=== PATIENT | female | born 1985 | race Caucasian/White ===

== ENCOUNTER → 2017-05-08 | Outpatient (CLI) | payer OTHER ==
[~2017-05-08] MED LIST: CLR10 PO; IBUP-103 PO; MEDR2.5T PO; NITR-5 PO
--- NOTE | 2017-05-08 15:41 | MAMMOGRAPHY REPORT ---
UNILATERAL LEFT DIGITAL DIAGNOSTIC MAMMOGRAM TOMOSYNTHESIS WITH CAD AND TARGETED LEFT ULTRASOUND: 04/23 CLINICAL HISTORY: The patient reports a history of multiple left breast infections since 2014, which start out as ingrown hairs and then turn into boils which eventually drain and then heal. The most r ecent episode started approximately 2 weeks ago, in which she noticed a new boil on her left inner br east. She does not clearly remember any drainage but she reports that it is resolving. She was just started on antibiotics. TECHNIQUE: Breast tomosynthesis in addition to standard 2D mammography was performed. Current study was also evaluated with a Computer Aided Detection (CAD) system. Left CC and MLO 2-D and tomosynthes is images were obtained. COMPARISON: No prior exams were available for comparison. BREAST COMPOSITION: There are scattered areas of fibroglandular density in the left breast. FINDINGS: There are no suspicious masses, calcifications, or areas of architectural distortion noted within the left breast mammographically. Targeted ultrasound was performed of the area of the resolving lump pointed out by the patient within the left 9:00 breast, approximately 3 cm from the nipple. On clinical exam there is some skin disco loration in this region. At the site of the palpable lump there is an ill-defined hypoechoic 1.3 x 1 .1 cm region within the skin, consistent with a resolving inflammatory/infectious process. No focal fluid collection is seen within the skin or with in the underlying breast parenchyma. No suspicious solid masses are noted within the breast tissue in this region. IMPRESSION: ACR BI-RADS CATEGORY 2: BENIGN, TARGETED ULTRASOUND ACR BI-RADS CATEGORY 2: BENIGN Ill-defined 1.3 cm hypoechoic region within the skin at the site of the resolving palpable lump/boil in the left 9:00 breast, consistent with a resolving inflammatory/infectious process. There is no fo emily fluid collection to suggest residual abscess. There is no mammographic or targeted sonographic e vidence of malignancy. Recommend clinical follow-up for left breast symptoms. The patient has been verbally notified of the results. Approximately 10% of breast cancers are not detected with mammography. A negative mammographic report should not delay biopsy if a clinically suggestive mass is present. Penny Davis M.D. /:05/08/2017 13:47:30 Mission Worker: Shira Tuttle, [facility] letter sent: Normal 1/2 BI-RADS Code: ACR BI-RADS Category 2: Benign Ultrasound BI-RADS: ACR BI-RADS Category 2: Benign
== END | disposition home or self-care (01) ==
LOC: C.MAMM 13:14
PROVIDERS: ATTEND Surgery
DX: N61.1 Abscess of the breast and nipple (principal); N63 Unspecified lump in breast

== ENCOUNTER → 2017-10-19 | Outpatient (CLI) | payer OTHER | END | disposition home or self-care (01) | LOC: C.LABSPEC 15:39 | PROVIDERS: ATTEND Physician Assistant | DX: N89.8 Other specified noninflammatory disorders of vagina (principal) ==

== ENCOUNTER 2018-03-31 09:47 | Emergency (ER) | payer OTHER ==
[~2018-03-31] VITALS: Ht 152.4 cm; Wt 161.0 kg
[2018-03-31 09:51] VITALS: TEMP 36.9; Ht 152.4 cm; Wt 161.0 kg
[2018-03-31] MEDS ORDERED: LIDOCAINE 1% BUFFERED INJ 5 ML VIAL INFIL ONE (10:30)
[2018-03-31] MEDS ORDERED: DIPHTHERIA/TETANUS/PERTUSSIS 0.5 ML SYR/VIAL IM. ONE (10:30)
--- NOTE | 2018-03-31 10:39 | EMERGENCY ROOM VISIT NOTE ---
ED Visit Note First contact with patient: 09:56 CHIEF COMPLAINT: Left fourth finger laceration 20 minutes ago HISTORY OF PRESENT ILLNESS: Patient is a 32-year-old female who was using a steak knife while preparing food and accidentally cut the left fourth finger. Injury occurred about 20 minutes ago. Bleeding has been controlled. She is right-hand dominant. She denies numbness, tingling or weakness. REVIEW OF SYSTEMS: Review of systems as per HPI. All other systems reviewed were negative. At least 6 systems reviewed. PMH: Electronic medical records are reviewed and summarized as above/below. See Problem List. She is unsure of her last tetanus vaccination. SOCIAL HISTORY: Patient lives at home. Non-smoker. PHYSICAL EXAM: Vital Signs: Reviewed Nurse's notes. There is a 1 cm long laceration on the palmar aspect of the left fourth finger over the PIP crease. The edges gape apart with traction. There is no foreign material in the wound and it looks clean. There is no bleeding. No deep structures such as tendons or nerves are seen in the base of the wound. Flexion of the finger is full and strong one isolated at the MCP, PIP and the DIP joint.. EMERGENCY DEPARTMENT COURSE: Tetanus is updated. Using sterile technique, saline and Betadine cleansing, and 1% lidocaine anesthesia, the laceration was repaired with 3, 5-0 nylon sutures. Bacitracin and a Band-Aid were applied. Wound care measures were discussed. The patient does not have any evidence for flexor tendon injury. Medication reconciliation: I attest that I have personally reviewed the patient' s current medication list. Blood pressure screening: Patient was found to have a slightly elevated blood pressure due to circumstances. I do not believe that the patient requires hypertension monitoring. Problem List Medical Problems: (1) Abscess of breast Status: Resolved (2) Bipol I, Rec Epis (Or Current) Depressed, Unspecified Status: Chronic (3) Bronchitis Status: Resolved (4) Cellulitis of breast Status: Resolved (5) Ear infection Status: Resolved (6) Morbid Obesity Status: Chronic (7) Sinusitis Status: Resolved (8) Urinary tract infection Status: Resolved (9) Urinary tract infection Status: Resolved Current/Historical Medications Scheduled Medroxyprogesterone (Provera), 5 MG PO UD Melatonin (Melatonin), 5 MG PO HS Scheduled PRN Ibuprofen Tab (Advil), 200-600 MG PO Q4H PRN for Pain or Fever Loratadine (Claritin), 10 MG PO DIRECTED PRN for ALLERGIC REACTION Allergies Coded Allergies: Estrogens (Verified Allergy, Severe, ANAPHYLAXIS WITH CONTROL PILLS , 03/31/18) Blacktail (Verified Allergy, Severe, ANAPHYLAXIS, 03/31/18) Medroxyprogesterone (Verified Allergy, Severe, ANAPHYLAXIS WITH CONTROL PILLS, 03/31/18) SOAPCLEAN (Verified Allergy, Mild, RASH (FACIAL CLEANSERS), 03/31/18) Vital Signs Date Time Temp Pulse Resp B/P (MAP) Pulse Ox O2 Delivery O2 Flow Rate FiO2 03/31/18 10:56 87 18 143/99 96 03/31/18 09:51 36.9 95 20 150/94 95 Room Air Medications Administered Medications (Trade) Dose Ordered Sig/Jamal Route Start Time Stop Time Status Last Admin Dose Admin Diphtheria/ Pertussis/Tetanus Vacc (Adacel Inj) 0.5 ml ONCE ONCE IM. 03/31/18 10:30 03/31/18 10:31 DC 03/31/18 10:52 0.5 ML Departure Information Impression Primary Impression: Laceration of finger Referrals Oliver Sheikh M.D. (PCP) Patient Instructions My [facility] Additional Instructions Keep wound clean and dry. Do not allow any crusting or dried blood to accumulate on sutures. If this occurs, use a 1:1 solution of hydrogen peroxide/ water on a Q-tip to clean the wound. Use an antibiotic ointment for 3-4 days, then let wound dry. Suture removal in 10-12 days. Return sooner for any signs of infection (increasing redness, swelling, drainage). Ice and elevate for swelling and pain. Ibuprofen 600 mg and Tylenol 1000 mg every 6 hrs for pain. Problem Qualifiers Primary Impression: Laceration of finger Encounter type: initial encounter Finger: ring finger Damage to nail status : without damage Foreign body presence: without foreign body Laterality: left Qualified Codes: S61.215A - Laceration without foreign body of left ring finger without damage to nail, initial encounter
[2018-03-31] MEDS ORDERED: MELA5TAB19 PO (10:50)
[2018-03-31 10:56] VITALS: BP 143/99; PULSE 87; O2SAT 96
== END 2018-03-31 11:04 | disposition home or self-care (01) ==
LOC: C.EDB 09:50
DX: S61.215A Laceration without foreign body of left ring finger without damage to nail, initial encounter (principal); W26.0XXA Contact with knife, initial encounter; Y93.G1 Activity, food preparation and clean up; Y99.8 Other external cause status; Z87.440 Personal history of urinary (tract) infections; Z88.8 Allergy status to other drugs, medicaments and biological substances; Z91.09 Other allergy status, other than to drugs and biological substances; Z23 Encounter for immunization

== ENCOUNTER → 2018-04-14 | Outpatient (CLI) | payer OTHER ==
[~2018-04-14] MED LIST changes: +MELA5TAB19 PO; -NITR-5 PO
[2018-04-14 12:23] LABS: BASO % 0.4 %; BASO ABS # 0.03 K/uL (0-0.2); EOS % 2.3 %; EOS ABS # 0.17 K/uL (0-0.5); HEMATOCRIT 45.2 % (37-47); HEMOGLOBIN 14.9 g/dL (12.0-16.0); LYMPH % 22.4 %; LYMPH ABS # 1.67 K/uL (1.2-3.4); MEAN CELL VOLUME 92.1 fL (80-100); MEAN CORPUSCULAR HEMOGLOBIN 30.3 pg (25-34); MEAN PLATELET VOLUME 10.5 fL (7.4-10.4); MONO % 4.7 %; MONO ABS # 0.35 K/uL (0.11-0.59); NEUT % 68.9 %; NEUT ABS # 5.15 K/uL (1.4-6.5); PLATELET COUNT 273 K/uL (130-400); RED CELL DISTRIBUTION WIDTH CV 13.5 % (11.5-14.5); RED CELL DISTRIBUTION WIDTH SD 45.1 fL (36.4-46.3); WHITE BLOOD COUNT 7.47 K/uL (4.8-10.8)
[2018-04-14 12:43] LABS: HEMOGLOBIN A1C 6.1 % (4.5-5.6)
[2018-04-14 12:48] LABS: ALBUMIN 3.6 gm/dl (3.4-5.0); ALKALINE PHOSPHATASE 110 U/L (45-117); ALT/SGPT 47 U/L (12-78); AST/SGOT 19 U/L (15-37); BLOOD UREA NITROGEN 13 mg/dl (7-18); CALCIUM 8.8 mg/dl (8.5-10.1); CARBON DIOXIDE 25 mmol/L (21-32); CHOLESTEROL 163 mg/dl (0-200); CREATININE 0.78 mg/dl (0.60-1.20); GLUCOSE 145 mg/dl (70-99); LDL CHOLESTEROL CALCULATED 86 mg/dl; SODIUM 138 mmol/L (136-145); TOTAL PROTEIN 8.1 gm/dl (6.4-8.2)
== END | disposition home or self-care (01) ==
LOC: C.LABBFT 07:40
PROVIDERS: ATTEND Nurse Practitioner
DX: N91.2 Amenorrhea, unspecified (principal); R73.01 Impaired fasting glucose; E55.9 Vitamin D deficiency, unspecified; R00.2 Palpitations

== ENCOUNTER 2021-12-29 20:56 | Inpatient (IN) ==
[2021-12-29] MEDS ORDERED: dexAMETHasone**PF** 10 MG/ML VIAL IV ONE (21:25)
[2021-12-29] MEDS ORDERED: ALBUT/IPRATROP 3MG/0.5MG NEB 3 ML VIAL INH STA (21:25)
[2021-12-29] MEDS ORDERED: SODIUM CHLORIDE 0.9% 500 ML IV STA (21:25)
--- NOTE | 2021-12-29 21:49 | Emergency Department Note ---
Impression & Plan Respiratory distress, Hypoxia, Pneumonia, COVID-19 ED Provider Note NAME: JEREMY NEIL AGE: 36 SEX: F : 1985 ARRIVES VIA: Walk-In INFORMANT: [Patient] ED PROVIDER(S): [Rodger Langford MD] CHIEF COMPLAINT: Shortness of breath HISTORY OF PRESENT ILLNESS: The patient is a 36-year-old female presents to the ER with 8 days of flulike symptoms. She has had fever, chills, nausea and vomiting, some shortness of breath, some body aches, a cough. The patient has become more short of breath as the days have gone on. The patient thinks that she was exposed to COVID-19. She has not yet been tested. She is not vaccinated for COVID-19 or influenza. The patient is a former smoker, she quit smoking in 2004. She has no asthma or COPD diagnosis. The patient's reason for presenting today was her worsening dyspnea. REVIEW OF SYSTEMS: See HPI for pertinent positives and negatives. A total of ten systems were reviewed and were otherwise negative. PMHx/PSHx: See Below SOCIAL HISTORY: See Below. PHYSICAL EXAM: GENERAL: Patient is in moderate respiratory distress. HEENT: No acute trauma, normocephalic atraumatic, mucous membranes moist, no nasal congestion, no scleral icterus. NECK: No stridor, no adenopathy, no meningismus, trachea is midline. LUNGS: Moderate respiratory distress noted, increased respiratory rate. Breath sounds are equal and somewhat diminished bilaterally. A few scattered crackles were heard. No wheezing. HEART: Mildly tachycardic, no murmurs, regular rhythm. ABDOMEN: Soft, nontender, bowel sounds positive, no hernias, no peritonitis. Obese. EXTREMITIES: No cyanosis, mild bilateral pedal edema, full range of motion of all the joints without pain or difficulty, no signs for acute trauma. NEUROLOGIC: Oriented x 3, no acute motor or sensory deficits, no focal weakness. SKIN: No rash, no jaundice, no diaphoresis. DIFFERENTIAL DIAGNOSIS: Reactive airway disease, pneumonia, COVID-19, influenza, pneumothorax, COPD, CHF, infection, cardiac ischemia, pulmonary embolism, bronchitis, musculo skeletal, gastrointestinal, as well as other pathologies. EMERGENCY DEPARTMENT COURSE/PROCEDURES: ECG: Indication was shortness of breath. The ECG shows a sinus tachycardia with a rate of 119. There is no ST elevation, no PVCs. The QTc is 464. Continuous Cardiac Monitoring: An order was placed for continuous cardiac monitoring. The monitor shows a rate of 130 with sinus tachycardia. Critical Care Note: I have personally spent 52 minutes of critical care time in the direct management of this patient. This includes bedside care, interpretation of diagnostic studies, and testing, discussion with consultants, patient, and family members, and other required patient management activities. This 52 minutes is in excess of all separately billable procedures. MEDICAL DECISION MAKING: There is a lower white blood cell count consistent with a potential viral infection. There was a normal hemoglobin and platelet count. No worrisome coagulopathy. ABG showed a low CO2 consistent with rapid breathing. PO2 was low at 57. Renal panel testing shows a lower sodium at 131. There was a slight elevation to the creatinine 1.22. No worrisome liver enzyme elevation. testing was negative. Lactic acid level was not elevated making sepsis less likely. ECG showed a sinus tachycardia without obvious ischemia. Cardiac enzyme testing x1 is not consistent with acute cardiac injury. Influenza testing is negative. Covid testing returned positive. Chest film shows a bilateral pneumonia consistent with a viral/Covid pneumonia. No pneumothorax. On exam, the patient was tachypneic, quite short of breath and hypoxic. She had some crackles on lung exam. The patient was aggressively managed. She was given nasal cannula O2 supplementation. She was given a DuoNeb, she received IV Decadron. She was given a 500 cc saline bolus. The patient has Covid pneumonia. She is hypoxic and in some respiratory distress. She is going to require a hospital stay. I did speak with the patient and case management. The on-call hospitalist was consulted. Past Med/Surg History Medical History Abscess Acid reflux Anxiety and depression Fatty liver History of breast abscess Hyperlipidemia Morbid obesity Seasonal allergies Surgical History Hx of tonsillectomy Family History Grandmother (Paternal) Breast cancer Grandmother (Maternal) Colorectal cancer Diabetes Mother Diabetes Gallbladder problem Father Diabetes Heart disease Sister Gallbladder problem Other Family history non-contributory Denies family history of Ovarian cancer Prostate cancer Coronary heart disease Social History Smoking Status: Former smoker Second Hand Exposure: Yes; Hx Alcohol Use: No Hx Substance Use: No Preferred Language: Maldivian Communication Ability: Effective Visual Impairment: No Limitations Hearing Ability: Normal Clay Hoister Required: No Beliefs That Will Affect Care: None marital status: Single Current Living Situation: Family Current Living Situation Comment: sister current occupational status: disabled Feels Safe at Home: Yes Childhood Exposure to Second-Hand Smoke: Yes caffeine: Yes Dental Care, Regularly: Yes Physical Activity Frequency: 1-2 Times per Week Seatbelt Use: always Sunscreen Use: Yes Assistive Devices: None Allergies Allergies Allergy/AdvReac Type Severity Reaction Status Date / Time doxycycline Allergy Severe hives Verified 12/29/21 21:20 Estrogens Allergy Severe ANAPHYLAXIS Verified 12/29/21 21:20 WITH CONTROL PILLS lithium Allergy Severe ANAPHYLAXIS Verified 12/29/21 21:20 sulfamethoxazole Allergy Severe red skin, Verified 12/29/21 21:20 [From Bactrim] itchy trimethoprim [From Bactrim] Allergy Severe red skin, Verified 12/29/21 21:20 itchy SOAPCLEAN Allergy Mild RASH Uncoded 12/29/21 21:20 (FACIAL CLEANSERS) Home Meds Home Medications Medication Instructions Recorded Confirmed blood-glucose meter (QuantHouseTouch ea 10/09/21 12/04/21 Ultra2 Meter) Previous Rx's Medication Instructions Recorded medroxyprogesterone 2.5 mg tablet 2.5 mg PO DAILY #90 tab 10/29/20 blood sugar diagnostic (QuantHouseTouch #300 ea 03/27/21 Ultra Blue Test Strip) lancets 30 gauge (OneTouch Delica #300 ea 03/27/21 Plus Lancet) mecobalamin (vitamin B12) 1,000 1,000 mcg PO DAILY #30 tab 04/08/21 mcg chewable tablet lisinopril 10 mg tablet 10 mg PO DAILY #90 tab 05/14/21 cetirizine 10 mg tablet 10 mg PO DAILY #90 tab 05/24/21 fluconazole 150 mg tablet 150 mg PO .weekly 180 Days #24 tab 08/26/21 (Diflucan) triamterene 37.5 1 tab PO BID #60 tab 10/03/21 mg-hydrochlorothiazide 25 mg tablet insulin degludec 200 unit/mL (3 60 unit SUBCUT DAILY #27 ml 10/15/21 mL) subcutaneous pen (Tresiba FlexTouch U-200 insulin) amlodipine 5 mg tablet (Norvasc) 5 mg PO DAILY #90 tab 10/21/21 famotidine 20 mg tablet 20 mg PO BID #180 tab 11/19/21 simvastatin 20 mg tablet 20 mg PO DAILY #90 tab 11/19/21 semaglutide 1 mg/dose (4 mg/3 mL) 1 mg SUBCUT ONCE #3 ml 12/03/21 subcutaneous pen injector pen needle, diabetic 31 gauge x #200 ea 12/11/2111/26" (1st Tier Unifine Pentips) insulin lispro-aabc 100 unit/mL 5 unit SUBCUT TID #1 box 12/16/21 subcutaneous pen (Lyumjev KwikPen U-100 Insulin) Results & Data (ED) Vital Signs Vital Signs - 24 hr 12/29/21 20:58 12/29/21 21:34 12/29/21 21:35 Temperature 37.3 C Temperature Source Temporal Artery Scan Pulse Rate 130 H Pulse Rate [Left] Pulse Rhythm [Left] Pulse Strength [Left] Respiratory Rate 30 H 24 Respiratory Effort / Characteristics Non-Labored Spontaneous Respiratory Depth Normal Respiratory Pattern Blood Pressure 136/69 Blood Pressure Mean 91 Blood Pressure Position Sitting Pulse Oximetry 92 87 L 92 Oxygen Delivery Method Room Air Room Air Nasal Cannula Oxygen Flow Rate 2 Sepsis Recent Fever Within 48 Hours Yes Sepsis New/Unexplained Change in Mental Status N/A Sepsis Action Taken by Nursing No Action Required Oxygen Flow Rate - Titration Pulse Oximetry Post Tiitration 92 12/29/21 21:43 12/29/21 22:08 12/29/21 22:45 Temperature Temperature Source Pulse Rate Pulse Rate [Left] 122 H Pulse Rhythm [Left] Regular Pulse Strength [Left] Normal Respiratory Rate 22 Respiratory Effort / Characteristics Non-Labored Spontaneous Non-Labored Spontaneous Respiratory Depth Shallow Shallow Respiratory Pattern Tachypnea Blood Pressure Blood Pressure Mean Blood Pressure Position Pulse Oximetry 88 L 95 Oxygen Delivery Method Nasal Cannula Room Air Nasal Cannula Oxygen Flow Rate 3 0 3 Sepsis Recent Fever Within 48 Hours Sepsis New/Unexplained Change in Mental Status Sepsis Action Taken by Nursing Oxygen Flow Rate - Titration 3 Pulse Oximetry Post Tiitration 94 Home Medications Current Medication List: was personally reviewed by Laboratory Data Attestation: I reviewed the patient's lab results. Result diagrams: 12/29/21 21:50 12/29/21 21:50 Lab Results 12/29/21 12/29/21 12/29/21 Range/Units 21:50 21:50 21:50 WBC 3.64 L (4.8-10.8) K/uL RBC 3.96 L (4.2-5.4) M/uL Hgb 12.3 (12.0-16.0) g/dL Hct 35.6 L (37-47) % MCV 89.9 (80-100) fL MCH 31.1 (25-34) pg MCHC 34.6 (32-36) g/dL RDW Std Deviation 50.0 H (36.4-46.3) fL RDW Coeff of Zbigniew 15.1 H (11.5-14.5) % Plt Count 163 (130-400) K/uL MPV 10.7 H (7.4-10.4) fL Immature Gran % (Auto) 1.1 % Neut % (Auto) 69.5 % Lymph % (Auto) 21.4 % [place] % (Auto) 7.4 % Eos % (Auto) 0.3 % Baso % (Auto) 0.3 % Neut # (Auto) 2.53 (1.4-6.5) K/uL Lymph # (Auto) 0.78 L (1.2-3.4) K/uL [place] # (Auto) 0.27 (0.11-0.59) K/uL Eos # (Auto) 0.01 (0-0.5) K/uL Baso # (Auto) 0.01 (0-0.2) K/uL Immature Gran # (Auto) 0.04 H (0.00-0.02) K/uL PT (9.0-12.0) Seconds INR (0.9-1.1) APTT (21.0-31.0) Seconds PTT Ratio ABG pH (7.35-7.45) ABG pCO2 (35-46) mmHg ABG pO2 (80-95) mmHg ABG HCO3 (19-24) mmol/L ABG O2 Saturation (90-95) % ABG Base Excess (-9-1.8) mEq/L Terell Test (Pos) Barometric Pressure mm/Hg Oxygen Given Sodium 131 L (136-145) mmol/L Potassium 4.3 (3.5-5.1) mmol/L Chloride 103 (98-107) mmol/L Carbon Dioxide 18 L (21-32) mmol/L Anion Gap 10 (3-11) BUN 23 (6-23) mg/dl Creatinine 1.22 H (0.6-1.2) mg/dl Est Cr Clr Drug Dosing 88.6 ml/min Est GFR ( Amer) 66.0 ml/min Est GFR (Non-Af Amer) 56.9 ml/min BUN/Creatinine Ratio 18.9 (10-20) Glucose 211 H (70-99(Fasting)) mg/dl Lactate (0.4-2.0) mmol/L Calcium 7.8 L (8.5-10.1) mg/dl Magnesium 1.8 (1.7-2.4) mg/dl Total Bilirubin 0.6 (0.2-1.0) mg/dl AST 41 H (13-39) U/L ALT 38 (7-52) U/L Alkaline Phosphatase 83 (34-104) U/L Troponin I < 0.03 (0-0.04) ng/ml Total Protein 6.3 (6.0-8.3) gm/dl Albumin 3.4 (3.4-5.0) gm/dl Globulin 2.9 (2.5-4.0) gm/dl Albumin/Globulin Ratio 1.2 (0.9-2) HCG, Qual Negative (Negative) Influ A Molecular Assay (Negative) Influ B Molecular Assay (Negative) SARS-CoV-2, RNA, NAAT (NEGATIVE) 12/29/21 12/29/21 12/29/21 Range/Units 21:50 21:50 21:51 WBC (4.8-10.8) K/uL RBC (4.2-5.4) M/uL Hgb (12.0-16.0) g/dL Hct (37-47) % MCV (80-100) fL MCH (25-34) pg MCHC (32-36) g/dL RDW Std Deviation (36.4-46.3) fL RDW Coeff of Zbigniew (11.5-14.5) % Plt Count (130-400) K/uL MPV (7.4-10.4) fL Immature Gran % (Auto) % Neut % (Auto) % Lymph % (Auto) % [place] % (Auto) % Eos % (Auto) % Baso % (Auto) % Neut # (Auto) (1.4-6.5) K/uL Lymph # (Auto) (1.2-3.4) K/uL [place] # (Auto) (0.11-0.59) K/uL Eos # (Auto) (0-0.5) K/uL Baso # (Auto) (0-0.2) K/uL Immature Gran # (Auto) (0.00-0.02) K/uL PT (9.0-12.0) Seconds INR (0.9-1.1) APTT (21.0-31.0) Seconds PTT Ratio ABG pH 7.46 H (7.35-7.45) ABG pCO2 28 L (35-46) mmHg ABG pO2 57 L (80-95) mmHg ABG HCO3 19 (19-24) mmol/L ABG O2 Saturation 91.0 (90-95) % ABG Base Excess -3.5 (-9-1.8) mEq/L Terell Test Pos (Pos) Barometric Pressure 740.6 mm/Hg Oxygen Given 3L Sodium (136-145) mmol/L Potassium (3.5-5.1) mmol/L Chloride (98-107) mmol/L Carbon Dioxide (21-32) mmol/L Anion Gap (3-11) BUN (6-23) mg/dl Creatinine (0.6-1.2) mg/dl Est Cr Clr Drug Dosing ml/min Est GFR ( Amer) ml/min Est GFR (Non-Af Amer) ml/min BUN/Creatinine Ratio (10-20) Glucose (70-99(Fasting)) mg/dl Lactate 0.8 (0.4-2.0) mmol/L Calcium (8.5-10.1) mg/dl Magnesium (1.7-2.4) mg/dl Total Bilirubin (0.2-1.0) mg/dl AST (13-39) U/L ALT (7-52) U/L Alkaline Phosphatase (34-104) U/L Troponin I (0-0.04) ng/ml Total Protein (6.0-8.3) gm/dl Albumin (3.4-5.0) gm/dl Globulin (2.5-4.0) gm/dl Albumin/Globulin Ratio (0.9-2) HCG, Qual (Negative) Influ A Molecular Assay (Negative) Influ B Molecular Assay (Negative) SARS-CoV-2, RNA, NAAT POSITIVE A* (NEGATIVE) 12/29/21 12/29/21 Range/Units 21:51 21:52 WBC (4.8-10.8) K/uL RBC (4.2-5.4) M/uL Hgb (12.0-16.0) g/dL Hct (37-47) % MCV (80-100) fL MCH (25-34) pg MCHC (32-36) g/dL RDW Std Deviation (36.4-46.3) fL RDW Coeff of Zbigniew (11.5-14.5) % Plt Count (130-400) K/uL MPV (7.4-10.4) fL Immature Gran % (Auto) % Neut % (Auto) % Lymph % (Auto) % [place] % (Auto) % Eos % (Auto) % Baso % (Auto) % Neut # (Auto) (1.4-6.5) K/uL Lymph # (Auto) (1.2-3.4) K/uL [place] # (Auto) (0.11-0.59) K/uL Eos # (Auto) (0-0.5) K/uL Baso # (Auto) (0-0.2) K/uL Immature Gran # (Auto) (0.00-0.02) K/uL PT 9.8 (9.0-12.0) Seconds INR 1.0 (0.9-1.1) APTT 31.4 H (21.0-31.0) Seconds PTT Ratio 1.2 ABG pH (7.35-7.45) ABG pCO2 (35-46) mmHg ABG pO2 (80-95) mmHg ABG HCO3 (19-24) mmol/L ABG O2 Saturation (90-95) % ABG Base Excess (-9-1.8) mEq/L Terell Test (Pos) Barometric Pressure mm/Hg Oxygen Given Sodium (136-145) mmol/L Potassium (3.5-5.1) mmol/L Chloride (98-107) mmol/L Carbon Dioxide (21-32) mmol/L Anion Gap (3-11) BUN (6-23) mg/dl Creatinine (0.6-1.2) mg/dl Est Cr Clr Drug Dosing ml/min Est GFR ( Amer) ml/min Est GFR (Non-Af Amer) ml/min BUN/Creatinine Ratio (10-20) Glucose (70-99(Fasting)) mg/dl Lactate (0.4-2.0) mmol/L Calcium (8.5-10.1) mg/dl Magnesium (1.7-2.4) mg/dl Total Bilirubin (0.2-1.0) mg/dl AST (13-39) U/L ALT (7-52) U/L Alkaline Phosphatase (34-104) U/L Troponin I (0-0.04) ng/ml Total Protein (6.0-8.3) gm/dl Albumin (3.4-5.0) gm/dl Globulin (2.5-4.0) gm/dl Albumin/Globulin Ratio (0.9-2) HCG, Qual (Negative) Influ A Molecular Assay Negative (Negative) Influ B Molecular Assay Negative (Negative) SARS-CoV-2, RNA, NAAT (NEGATIVE) Administered Medications Dexamethasone (Dexamethasone Sod Inj 4 Mg/Ml Vial) 4 mg IV 22[facility] Stop: 12/29/21 23:59 Last Admin: 12/29/21 22:35 Dose: 4 mg Documented by: [id number] Azithromycin 500 mg/ Dextrose 255 mls @ 127.5 mls/hr IV NOW STA Stop: 12/30/21 00:17 Last Admin: 12/29/21 22:36 Dose: 127.5 mls/hr Documented by: [id number] Discontinued Medications Albuterol (Albut/Ipratrop 3mg/0.5mg Neb 3 Ml Vial) 3 ml INH NOW STA Stop: 12/29/21 21:26 Last Admin: 12/29/21 21:50 Dose: 3 ml Documented by: [id number] Dexamethasone Sodium Phosphate (DexamethasonePf 10 Mg/Ml Vial) 6 mg IV NOW ONE Stop: 12/29/21 21:26 Last Admin: 12/29/21 21:55 Dose: 6 mg Documented by: [id number] Sodium Chloride (Nss) 500 mls @ 999 mls/hr IV .Q31M STA Stop: 12/29/21 21:55 Last Infusion: 12/29/21 22:49 Dose: 0 mls/hr Documented by: [id number] Admin: 12/29/21 22:11 Dose: 999 mls/hr Documented by: [id number] Ceftriaxone Sodium (Rocephin) 2,000 mg in 70 mls @ 140 mls/hr IV NOW STA Stop: 12/29/21 22:47 Last Infusion: 12/29/21 22:49 Dose: 0 mls/hr Documented by: [id number] Admin: 12/29/21 22:35 Dose: 140 mls/hr Documented by: [id number] Imaging Data Radiologist's Impression: Chest X-Ray 12/29/21 21:25 XR chest 1V portable CLINICAL HISTORY: Dyspnea. Cough and shortness of breath COMPARISON STUDY: No previous studies for comparison. TECHNIQUE: 1 view of the chest FINDINGS: Single frontal view of the chest demonstrates the cardiomediastinal silhouette to be within normal limits. Patchy interstitial and alveolar opacities bilaterally characteristic of a viral type pneumonitis and probable Covid 19 pneumonia. Findings There is no evidence for pleural effusion. There is no evidence for vascular congestion. There is no acute osseous pathology. IMPRESSION: Patchy interstitial and alveolar opacities bilaterally characteristic of a viral type pneumonitis and probable Covid 19 pneumonia. ACT 112: Negative or not required by law. Electronically signed by: hCandana Rivas M.D. 12/29/2021 10:15 PM Discharge Plan Visit Data Chief Complaint: Shortness of Breath/Dyspnea Stated Complaint: FEVER, SOB, CHILLS, ABDOM PAIN, COVID EXP ED Provider: Rodger Langford Discharge Problem: Respiratory distress, Hypoxia, Pneumonia, COVID-19 Patient Disposition: Admitted As Inpatient Condition: Serious Forms Stand Alone Forms: [employer] Prescriptions Prescriptions: No Action (DME) OneTouch Ultra Blue Test Strip Strip See Rx Instructions .ROUTE .MEDSUPPLY Qty: 300 RF: 3 (DME) lancets [OneTouch Delica Plus Lancet] 30 gauge misc See Rx Instructions .ROUTE .MEDSUPPLY Qty: 300 RF: 3 mecobalamin (vitamin B12) 1,000 mcg tablet,chewable 1,000 mcg PO DAILY Qty: 30 RF: 0 lisinopril 10 mg tablet 10 mg PO DAILY Qty: 90 RF: 3 cetirizine 10 mg tablet 10 mg PO DAILY Qty: 90 RF: 3 fluconazole [Diflucan] 150 mg tablet 150 mg PO .weekly 180 Days Qty: 24 RF: 0 Tresiba FlexTouch U-200 200 unit/mL (3 mL) insulin pen 60 unit subcut DAILY Qty: 27 RF: 3 amlodipine [Norvasc] 5 mg tablet 5 mg PO DAILY Qty: 90 RF: 3 simvastatin 20 mg tablet 20 mg PO DAILY Qty: 90 RF: 3 famotidine 20 mg tablet 20 mg PO BID Qty: 180 RF: 3 semaglutide 1 mg/dose (4 mg/3 mL) pen injector 1 mg subcut ONCE Qty: 3 RF: 5 (DME) pen needle, diabetic [1st Tier Unifine Pentips] 31 gauge x 1/4" needle See Rx Instructions .ROUTE .MEDSUPPLY Qty: 200 RF: 3 medroxyprogesterone 2.5 mg tablet 2.5 mg PO DAILY Qty: 90 RF: 5 Lyumjev KwikPen U-100 Insulin 100 unit/mL insulin pen 5 unit subcut TID Qty: 1 RF: 3 triamterene-hydrochlorothiazid 37.5-25 mg tablet 1 tab PO BID Qty: 60 RF: 5 (DME) blood-glucose meter [OneTouch Ultra2 Meter] Kit See Rx Instructions .ROUTE .MEDSUPPLY RF: 0 Referrals Referrals: Oliver Sheikh MD [Primary Care Provider] -
[2021-12-29 22:01] LABS: Basophils # (auto) 0.01 K/uL (0-0.2); Basophils % (auto) 0.3 %; Eosinophils # (auto) 0.01 K/uL (0-0.5); Eosinophils % (auto) 0.3 %; Hematocrit (blood only) 35.6 % (37-47); Hemoglobin 12.3 g/dL (12.0-16.0); Immature Granulocytes # (auto) 0.04 K/uL (0.00-0.02); Immature Granulocytes % (auto) 1.1 %; Lymphocytes # (auto) 0.78 K/uL (1.2-3.4); Lymphocytes % (auto) 21.4 %; Mean Corpuscular Hemoglobin 31.1 pg (25-34); Mean Corpuscular Hgb Conc 34.6 g/dL (32-36); Mean Corpuscular Volume 89.9 fL (80-100); Mean Platelet Volume 10.7 fL (7.4-10.4); Monocytes # (auto) 0.27 K/uL (0.11-0.59); Monocytes % (auto) 7.4 %; Neutrophils # (auto) 2.53 K/uL (1.4-6.5); Neutrophils % (auto) 69.5 %; Platelet Count 163 K/uL (130-400); RDW Coefficient of Variation 15.1 % (11.5-14.5); Red Blood Count 3.96 M/uL (4.2-5.4); White Blood Count 3.64 K/uL (4.8-10.8)
[2021-12-29 22:03] LABS: Base Excess ABG -3.5 mEq/L (-9-1.8); HCO3 ABG 19 mmol/L (19-24); PCO2 ABG 28 mmHg (35-46); PO2 ABG 57 mmHg (80-95); pH ABG 7.46 (7.35-7.45)
[2021-12-29 22:05] LABS: Allen Test Pos (Pos)
[2021-12-29] MEDS ORDERED: dexAMETHasone 4 MG in SYRINGE 0 ML IV ONE (22:16)
--- NOTE | 2021-12-29 22:16 | XRay Report ---
XR chest 1V portable CLINICAL HISTORY: Dyspnea. Cough and shortness of breath COMPARISON STUDY: No previous studies for comparison. TECHNIQUE: 1 view of the chest FINDINGS: Single frontal view of the chest demonstrates the cardiomediastinal silhouette to be within normal li mits. Patchy interstitial and alveolar opacities bilaterally characteristic of a viral type pneumonit is and probable Covid 19 pneumonia. Findings There is no evidence for pleural effusion. There is no e vidence for vascular congestion. There is no acute osseous pathology. IMPRESSION: Patchy interstitial and alveolar opacities bilaterally characteristic of a viral type pne umonitis and probable Covid 19 pneumonia. ACT 112: Negative or not required by law. Electronically signed by: Chandana Rivas M.D. 12/29/2021 10:15 PM
[2021-12-29 22:18] LABS: Influenza A virus by PCR Negative (Negative); Influenza B virus by PCR Negative (Negative)
[2021-12-29] MEDS ORDERED: AZITHROMYCIN 500 MG in DEXTROSE 5% 250 ML IV STA (22:18)
[2021-12-29] MEDS ORDERED: cefTRIAXone SODIUM 2,000 MG/70 ML BAG IV STA (22:18)
[2021-12-29] MEDS ORDERED: DEXAMETHASONE SOD INJ 4 MG/ML VIAL IV SCH (22:20)
[2021-12-29 22:22] LABS: Alanine Aminotransferase 38 U/L (7-52); Albumin Globulin Ratio 1.2 (0.9-2); Albumin Level 3.4 gm/dl (3.4-5.0); Alkaline Phosphatase 83 U/L (34-104); Anion Gap 10 (3-11); Aspartate Aminotransferase 41 U/L (13-39); BUN Creatinine Ratio 18.9 (10-20); Bilirubin,Total 0.6 mg/dl (0.2-1.0); Blood Urea Nitrogen 23 mg/dl (6-23); Calcium 7.8 mg/dl (8.5-10.1); Carbon Dioxide 18 mmol/L (21-32); Chloride 103 mmol/L (98-107); Creatinine Clr Calc Pharmacy 88.6 ml/min; Est GFR (Non-African American) 56.9 ml/min; Globulin 2.9 gm/dl (2.5-4.0); Glucose 211 mg/dl (70-99(Fasting)); Magnesium 1.8 mg/dl (1.7-2.4); Potassium 4.3 mmol/L (3.5-5.1); Sodium 131 mmol/L (136-145); Total Protein 6.3 gm/dl (6.0-8.3)
[2021-12-29 22:25] LABS: Troponin I < 0.03 ng/ml (0-0.04)
[2021-12-29 22:27] LABS: Pregnancy Test, Serum Negative (Negative)
[2021-12-29] MEDS ORDERED: REMDESIVIR 200 MG in SODIUM CHLORIDE 0.9% 210 ML IV STA (22:37)
--- NOTE | 2021-12-29 22:40 | History & Physical Report ---
Date of Service December 29, 2021 Assessment & Plan (1) Pneumonia due to COVID-19 virus: Plan: Pneumonia due to COVID-19 virus/acute respiratory failure with hypoxia- Give Decadron 10 mg IV this evening, and 6 mg IV every morning Remdesivir IV per protocol Ceftriaxone 2 g IV daily Azithromycin 500 mg IV daily Duonebs every 4 hours while awake and every 2 hours when necessary. Vitamin D 5000 international units p.o. every morning Zinc sulfate turn 200 mg p.o. every morning Guaifenesin extended release 1200 mg p.o. twice daily Nasal cannula oxygen, titrate to keep pulse ox 92-94% (2) Acute respiratory failure with hypoxia: Plan: See above (3) Hypertension: Plan: Hold amlodipine, triamterene/HCTZ and lisinopril. (4) Diabetes mellitus: Plan: Continue insulin degludec [address] on Accu-Cheks before meals and at bedtime NovoLog coverage per scale Check hemoglobin A1c Expect glucose to become more elevated while being on Decadron (5) Hyperlipidemia: Plan: Continue simvastatin (6) Acid reflux: Plan: Continue famotidine History of Present Illness Chief Complaint: The patient presents to the emergency department with 8 days of cough, shortness of breath, generalized fatigue, intermittent nausea and vomiting and generalized body aches, after probable exposure to COVID-19. The patient herself is unvaccinated to COVID-19 or influenza Primary Care Provider: Oliver Sheikh MD The patient is a 36-year-old female with a past medical history including diabetes mellitus, hypertension, GERD, hyperlipidemia, and morbid obesity. She presents with 8 days of symptoms noted above. Laboratory evaluation emergency department included a positive test for COVID-19, and negative test for influenza. Pulse ox was 88% on room air. Chest x-ray showed moderate to severe multifocal pneumonia. Allergies Allergy/AdvReac Type Severity Reaction Status Date / Time doxycycline Allergy Severe hives Verified 12/29/21 21:20 Estrogens Allergy Severe ANAPHYLAXIS Verified 12/29/21 21:20 WITH CONTROL PILLS lithium Allergy Severe ANAPHYLAXIS Verified 12/29/21 21:20 sulfamethoxazole Allergy Severe red skin, Verified 12/29/21 21:20 [From Bactrim] itchy trimethoprim [From Bactrim] Allergy Severe red skin, Verified 02/06/22 21:20 itchy SOAPCLEAN Allergy Mild RASH Uncoded 12/29/21 21:20 (FACIAL CLEANSERS) Home Medications Medication Instructions Recorded Confirmed Type medroxyprogesterone 2.5 mg tablet 2.5 mg PO DAILY #90 tab 10/29/20 12/29/21 Rx blood sugar [facility] 03/27/21 12/04/21 Rx Ultra Blue Test Strip) lancets 30 gauge (OneTouch Delica #300 ea 03/27/21 12/04/21 Rx Plus Lancet) mecobalamin (vitamin B12) 1,000 1,000 mcg PO DAILY #30 tab 04/08/21 12/29/21 Rx mcg chewable tablet lisinopril 10 mg tablet 10 mg PO DAILY #90 tab 05/14/21 12/29/21 Rx cetirizine 10 mg tablet 10 mg PO DAILY #90 tab 05/24/21 12/29/21 Rx fluconazole 150 mg tablet 150 mg PO .weekly 180 Days #24 tab 08/26/21 12/29/21 Rx (Diflucan) triamterene 37.5 1 tab PO BID #60 tab 10/03/21 12/29/21 Rx mg-hydrochlorothiazide 25 mg tablet blood-glucose meter (Oneuch ea 10/09/21 12/04/21 History Ultra2 Meter) insulin degludec 200 unit/mL (3 60 unit SUBCUT DAILY #27 ml 10/15/21 12/29/21 Rx mL) subcutaneous pen (Tresiba FlexTouch U-200 insulin) amlodipine 5 mg tablet (Norvasc) 5 mg PO DAILY #90 tab 10/21/21 12/29/21 Rx famotidine 20 mg tablet 20 mg PO BID #180 tab 11/19/21 12/29/21 Rx simvastatin 20 mg tablet 20 mg PO DAILY #90 tab 11/19/21 12/29/21 Rx semaglutide 1 mg/dose (4 mg/3 mL) 1 mg SUBCUT ONCE #3 ml 12/03/21 12/29/21 Rx subcutaneous pen injector pen needle, diabetic 31 gauge x #200 ea 12/11/21 Rx 1/4" (1st Tier Unifine Pentips) insulin lispro-aabc 100 unit/mL 5 unit SUBCUT TID #1 box 12/16/21 12/29/21 Rx subcutaneous pen (Lyumjev KwikPen U-100 Insulin) Past Med/Surg History Medical History (Updated 12/30/21 @ 02:04 by Blair Louis MD) Abscess Acid reflux Anxiety and depression Fatty liver History of breast abscess Hyperlipidemia Morbid obesity Seasonal allergies Surgical History (Updated 12/30/21 @ 00:16 by Glenna Marsh RN) History of adenoidectomy Hx of tonsillectomy Family History Grandmother (Paternal) Breast cancer Grandmother (Maternal) Colorectal cancer Diabetes Mother Diabetes Gallbladder problem Father Diabetes Heart disease Sister Gallbladder problem Other Family history non-contributory Denies family history of Ovarian cancer Prostate cancer Coronary heart disease Social History Smoking Status: Former smoker Second Hand Exposure: No; Do You Dip or Chew Tobacco: No; Tobacco Cessation Education Requested by Patient: No Hx Alcohol Use: No Hx Substance Use: No Preferred Language: Georgian Communication Ability: Effective Visual Impairment: No Limitations Hearing Ability: Normal 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 Beliefs That Will Affect Care: None marital status: Single Current Living Situation: Family Current Living Situation Comment: sister current occupational status: disabled Feels Safe at Home: Yes Safety Concerns: Feels Safe At This Time Childhood Exposure to Second-Hand Smoke: Yes caffeine: Yes Dental Care, Regularly: Yes Physical Activity Frequency: 1-2 Times per Week Seatbelt Use: always Sunscreen Use: Yes Assistive Devices: Oxygen - Continuous Review of Systems Review of Systems: The patient denies chest pain, palpitations, lower extremity swelling, sore throat, fevers, chills, sweats, diarrhea , constipation, abdominal pain, pelvic pain, blood in urine or stool, dysuria, urinary frequency or urgency, lightheadedness, dizziness, headache, memory loss, loss of consciousness, rash, abnormal bruising or bleeding, imbalance, focal weakness, numbness or tingling in arms or legs, back or neck pain, or night sweats. The review of systems is otherwise negative other than for that already noted above, and at least 10 systems have been reviewed. Physical Exam Physical Exam: The patient is awake, alert and oriented 3, well developed and well nourished, normocephalic and atraumatic, lying in bed and in moderate distress secondary to shortness of breath HEENT--PERRL, EOMI, mucous membranes and oropharynx normal Neck--supple. No JVD. No bruits. Thyroid normal, trachea midline, no adenopathy. Heart--normal S1 and S2. No murmurs, rubs or gallops. Lungs--coarse breath sounds bilaterally. Moderate respiratory distress, no accessory muscle use. Abdomen--normal bowel sounds and soft. Nontender. Nondistended. Morbidly obese Extremities--no cyanosis or clubbing. No edema. Dermatologic--normal skin turgor, normal color, no abnormal lymph nodes, no rash. Neurologic--cranial nerves II through XII grossly intact. Rheumatologic--normal range of motion. Psychiatric--normal affect. Results & Data Results & Data ([facility]) Vital Signs (Past 12 Hours) Vital Signs Temp Pulse Resp BP Pulse Ox 12/29/21 22:08 88 L 12/29/21 21:35 92 12/29/21 21:34 24 87 L 12/29/21 20:58 37.3 C 130 H 30 H 136/69 92 Laboratory Results Laboratory Results WBC 3.64 K/uL (4.8-10.8) L 12/29/21 21:50 RBC 3.96 M/uL (4.2-5.4) L 12/29/21 21:50 Hgb 12.3 g/dL (12.0-16.0) 12/29/21 21:50 Hct 35.6 % (37-47) L 12/29/21 21:50 MCV 89.9 fL (80-100) 12/29/21 21:50 MCH 31.1 pg (25-34) 12/29/21 21:50 MCHC 34.6 g/dL (32-36) 12/29/21 21:50 RDW Std Deviation 50.0 fL (36.4-46.3) H 12/29/21 21:50 RDW Coeff of Zbigniew 15.1 % (11.5-14.5) H 12/29/21 21:50 Plt Count 163 K/uL (130-400) 12/29/21 21:50 MPV 10.7 fL (7.4-10.4) H 12/29/21 21:50 Immature Gran % (Auto) 1.1 % 12/29/21 21:50 Neut % (Auto) 69.5 % 12/29/21 21:50 Lymph % (Auto) 21.4 % 12/29/21 21:50 [place] % (Auto) 7.4 % 12/29/21 21:50 Eos % (Auto) 0.3 % 12/29/21 21:50 Baso % (Auto) 0.3 % 12/29/21 21:50 Neut # (Auto) 2.53 K/uL (1.4-6.5) 12/29/21 21:50 Lymph # (Auto) 0.78 K/uL (1.2-3.4) L 12/29/21 21:50 [place] # (Auto) 0.27 K/uL (0.11-0.59) 12/29/21 21:50 Eos # (Auto) 0.01 K/uL (0-0.5) 12/29/21 21:50 Baso # (Auto) 0.01 K/uL (0-0.2) 12/29/21 21:50 Immature Gran # (Auto) 0.04 K/uL (0.00-0.02) H 12/29/21 21:50 PT 9.8 Seconds (9.0-12.0) 12/29/21 21:52 INR 1.0 (0.9-1.1) 12/29/21 21:52 APTT 31.4 Seconds (21.0-31.0) H 12/29/21 21:52 PTT Ratio 1.2 12/29/21 21:52 ABG pH 7.46 (7.35-7.45) H 12/29/21 21:50 ABG pCO2 28 mmHg (35-46) L 12/29/21 21:50 ABG pO2 57 mmHg (80-95) L 12/29/21 21:50 ABG HCO3 19 mmol/L (19-24) 12/29/21 21:50 ABG O2 Saturation 91.0 % (90-95) 12/29/21 21:50 ABG Base Excess -3.5 mEq/L (-9-1.8) 12/29/21 21:50 Terell Test Pos (Pos) 12/29/21 21:50 Barometric Pressure 740.6 mm/Hg 12/29/21 21:50 Oxygen Given 3L 12/29/21 21:50 Sodium 131 mmol/L (136-145) L 12/29/21 21:50 Potassium 4.3 mmol/L (3.5-5.1) 12/29/21 21:50 Chloride 103 mmol/L (98-107) 12/29/21 21:50 Carbon Dioxide 18 mmol/L (21-32) L 12/29/21 21:50 Anion Gap 10 (3-11) 12/29/21 21:50 BUN 23 mg/dl (6-23) 12/29/21 21:50 Creatinine 1.22 mg/dl (0.6-1.2) H 12/29/21 21:50 Est Cr Clr Drug Dosing 88.6 ml/min 12/29/21 21:50 Est GFR ( Amer) 66.0 ml/min 12/29/21 21:50 Est GFR (Non-Af Amer) 56.9 ml/min 12/29/21 21:50 BUN/Creatinine Ratio 18.9 (10-20) 12/29/21 21:50 Glucose 211 mg/dl (70-99(Fasting)) H 12/29/21 21:50 POC Glucose 223 mg/dl (70-99) H 12/30/21 01:20 Lactate 0.8 mmol/L (0.4-2.0) 12/29/21 21:50 Calcium 7.8 mg/dl (8.5-10.1) L 12/29/21 21:50 Magnesium 1.8 mg/dl (1.7-2.4) 12/29/21 21:50 Total Bilirubin 0.6 mg/dl (0.2-1.0) 12/29/21 21:50 AST 41 U/L (13-39) H 12/29/21 21:50 ALT 38 U/L (7-52) 12/29/21 21:50 Alkaline Phosphatase 83 U/L (34-104) 12/29/21 21:50 Troponin I < 0.03 ng/ml (0-0.04) 12/29/21 21:50 Total Protein 6.3 gm/dl (6.0-8.3) 02/06/22 21:50 Albumin 3.4 gm/dl (3.4-5.0) 12/29/21 21:50 Globulin 2.9 gm/dl (2.5-4.0) 12/29/21 21:50 Albumin/Globulin Ratio 1.2 (0.9-2) 12/29/21 21:50 HCG, Qual Negative (Negative) 12/29/21 21:50 Urine Color Yellow 12/29/21 00:47 Urine Appearance Clear (Clear) 12/29/21 00:47 Urine pH 5.5 (4.5-7.5) 12/29/21 00:47 Ur Specific Vance 1.018 (1.000-1.030) 12/29/21 00:47 Urine Protein Trace (Negative) H 12/29/21 00:47 Urine Glucose (UA) Negative (Negative) 12/29/21 00:47 Urine Ketones Negative (Negative) 12/29/21 00:47 Urine Blood Negative (Negative) 12/29/21 00:47 Urine Nitrite Negative (Negative) 12/29/21 00:47 Urine Bilirubin Negative (Negative) 12/29/21 00:47 Urine Urobilinogen Negative (Negative) 12/29/21 00:47 Ur Leukocyte Esterase Negative (Negative) 12/29/21 00:47 Urine WBC (Auto) 1-5 /hpf (0-5) 12/29/21 00:47 Urine RBC (Auto) 5-10 /hpf (0-4) H 12/29/21 00:47 U Hyaline Cast (Auto) 1-5 /lpf (0-5) 12/29/21 00:47 U Epithel Cells (Auto) >30 /lpf (0-5) H 12/29/21 00:47 Urine Bacteria (Auto) Negative (Negative) 12/29/21 00:47 Influ A Molecular Assay Negative (Negative) 12/29/21 21:51 Influ B Molecular Assay Negative (Negative) 12/29/21 21:51 SARS-CoV-2, RNA, NAAT POSITIVE (NEGATIVE) A* 12/29/21 21:51 Impressions Chest X-Ray 12/29/21 21:25 XR chest 1V portable CLINICAL HISTORY: Dyspnea. Cough and shortness of breath COMPARISON STUDY: No previous studies for comparison. TECHNIQUE: 1 view of the chest FINDINGS: Single frontal view of the chest demonstrates the cardiomediastinal silhouette to be within normal limits. Patchy interstitial and alveolar opacities bilaterally characteristic of a viral type pneumonitis and probable Covid 19 pneumonia. Findings There is no evidence for pleural effusion. There is no evidence for vascular congestion. There is no acute osseous pathology. IMPRESSION: Patchy interstitial and alveolar opacities bilaterally characteristic of a viral type pneumonitis and probable Covid 19 pneumonia. ACT 112: Negative or not required by law. Electronically signed by: Chandana Rivas M.D. 12/29/2021 10:15 PM Code Status & VTE Plan Code Status Full code VTE Prophylaxis Plan VTE Prophylaxis will be ordered: Yes PG Care Time/CCT Total # of Minutes Spent Total Time Spent with Patient: Total time spent is greater than 50% in coordination of care (as documented) at patient's floor/unit and/or counseling patient: Coding Level of Care Code 64090 Initial Inpt Care Lvl 3 Diagnoses Pneumonia due to COVID-19 virus U07.1; J12.82 Acute respiratory failure with hypoxia J96.01 Hypertension I10 Diabetes mellitus E11.9 Hyperlipidemia E78.5 Acid reflux K21.9
[2021-12-29 22:52] LABS: Partial Thromboplastin Ratio 1.2; Partial Thromboplastin Time 31.4 Seconds (21.0-31.0); Prothrombin Time 9.8 Seconds (9.0-12.0)
[2021-12-29] MEDS ORDERED: DEXTROSE 50% 50 ML SYRINGE IV PRN (23:43)
[2021-12-29] MEDS ORDERED: GLUCOSE 10 TABS/TUBE PO PRN (23:43)
[2021-12-29] MEDS ORDERED: GLUCAGON FOR INJ 1 MG VIAL SQ PRN (23:43)
[2021-12-29] MEDS ORDERED: CARBOHYDRATES FOR HYPOGLYCEMIA PO PRN (23:43)
[2021-12-29] MEDS ORDERED: ACETAMINOPHEN 325 MG TAB PO PRN (23:43)
[2021-12-29] MEDS ORDERED: ONDANSETRON INJ 2 MG/ML 2 ML VIAL IV PRN (23:43)
[2021-12-29] MEDS ORDERED: GLUCOSE 40% GEL 15 GM TUBE PO PRN (23:43)
[2021-12-30] MEDS: FAMOTIDINE 20 MG TAB PO SCH ×3 (01:19→21:24)
[2021-12-30 02:01] LABS: Appearance Urine Clear (Clear); Bacteria Urine Automated Negative (Negative); Bilirubin Urine Negative (Negative); Blood Urine Negative (Negative); Color Urine Yellow; Epithelial Cell Urine Auto >30 /lpf (0-5); Glucose Urine UA Negative (Negative); Ketones Urine Negative (Negative); Leukocyte Esterase Urine Negative (Negative); Nitrite Urine Negative (Negative); Protein Urine Trace (Negative); Specific Gravity Urine 1.018 (1.000-1.030); Urobilinogen Urine Negative (Negative); pH Urine 5.5 (4.5-7.5)
[2021-12-30] MEDS ORDERED: SODIUM CHLORIDE 0.9% 1000ML 500 ML IV ONE (03:05)
--- NOTE | 2021-12-30 06:30 | Electrocardiogram Report ---
Test Reason : Blood Pressure : / mmHG Vent. Rate : 119 BPM Atrial Rate : 119 BPM P-R Int : 134 ms QRS Dur : 084 ms QT Int : 330 ms P-R-T Axes : 027 -05 038 degrees QTc Int : 464 ms Sinus tachycardia Low voltage QRS Poor R wave progression, consider anterior CA vs. lead placement vs. LVH Abnormal ECG When compared with ECG of 17-JUL-2010 14:34, Premature supraventricular complexes are no longer Present Confirmed by Marcial Riley ([id number]) on 12/30/2021 6:29:49 AM Referred By: REFERRED SELF Confirmed By:Marcial Riley
[2021-12-30] MEDS ORDERED: ALBUT/IPRATROP 3MG/0.5MG NEB 3 ML VIAL NEB SCH (07:00)
[2021-12-30 07:33] LABS: Hematocrit (blood only) 34.3 % (37-47); Hemoglobin 11.6 g/dL (12.0-16.0); Immature Granulocytes # (auto) 0.03 K/uL (0.00-0.02); Immature Granulocytes % (auto) 1.5 %; Lymphocytes # (auto) 0.46 K/uL (1.2-3.4); Mean Corpuscular Hemoglobin 30.4 pg (25-34); Mean Corpuscular Hgb Conc 33.8 g/dL (32-36); Mean Platelet Volume 10.8 fL (7.4-10.4); Monocytes # (auto) 0.07 K/uL (0.11-0.59); Monocytes % (auto) 3.5 %; Neutrophils # (auto) 1.44 K/uL (1.4-6.5); Platelet Count 170 K/uL (130-400); RDW Standard Deviation 49.4 fL (36.4-46.3); Red Blood Count 3.81 M/uL (4.2-5.4)
[2021-12-30 07:53] LABS: Troponin I < 0.03 ng/ml (0-0.04)
[2021-12-30 08:06] LABS: Estimated Average Glucose 140 mg/dl; Hemoglobin A1C 6.5 % (4.5-5.6)
[2021-12-30 08:07] LABS: Alanine Aminotransferase 37 U/L (7-52); Albumin Globulin Ratio 1.1 (0.9-2); Albumin Level 3.3 gm/dl (3.4-5.0); Alkaline Phosphatase 78 U/L (34-104); Anion Gap 9 (3-11); Aspartate Aminotransferase 39 U/L (13-39); BUN Creatinine Ratio 19.4 (10-20); Bilirubin,Total 0.4 mg/dl (0.2-1.0); Blood Urea Nitrogen 20 mg/dl (6-23); Calcium 7.7 mg/dl (8.5-10.1); Carbon Dioxide 20 mmol/L (21-32); Chloride 104 mmol/L (98-107); Creatinine Clr Calc Pharmacy 109.2 ml/min; Est GFR (Non-African American) 69.9 ml/min; Glucose 269 mg/dl (70-99(Fasting)); Potassium 4.3 mmol/L (3.5-5.1); Sodium 133 mmol/L (136-145); Total Protein 6.3 gm/dl (6.0-8.3)
[2021-12-30] MEDS ORDERED: INSULIN GLARGINE SOLOSTAR 100 UNITS/ML 3 ML PEN SC SCH (09:00)
[2021-12-30] MEDS: CETIRIZINE HCL 10 MG TABLET PO SCH (09:08)
[2021-12-30] MEDS: CHOLECALCIFEROL 5,000 UNITS 125 MCG TAB PO SCH (09:09)
[2021-12-30] MEDS: CYANOCOBALAMIN (B-12) 500 MCG TABLET PO SCH (09:09)
[2021-12-30] MEDS: dexAMETHasone 6 MG in SYRINGE 0 ML IV SCH (09:09)
[2021-12-30] MEDS: ZINC SULFATE 220 MG CAPSULE PO SCH (09:10)
[2021-12-30] MEDS: SIMVASTATIN 20 MG TAB PO SCH (09:10)
[2021-12-30] MEDS: guaiFENesin 600 MG TABCR PO SCH ×2 (09:10→21:24)
[2021-12-30] MEDS: INSULIN ASPART PER UNIT SC SCH ×4 (09:13→20:38)
[2021-12-30] MEDS ORDERED: NYSTATIN POWDER 15GM BTL EXT PRN (14:09)
--- NOTE | 2021-12-30 14:13 | Hospitalist Progress Note ---
Date of Service December 30, 2021 Assessment & Plan (1) Pneumonia due to COVID-19 virus: Plan: Pneumonia due to COVID-19 virus/acute respiratory failure with hypoxia- first symptoms 12/26/21 covid test + 12/29/21 oxygen at admission quickly progressed to vapotherm 30 L 60% unvaccinated former smoker, morbidly obese with BMI 69 and insulin requiring diabetic Give Decadron 10 mg IV this evening, and 6 mg IV every morning Remdesivir IV per protocol will check crp to see if qualifies for baricitinib Azithromycin 500 mg IV daily Duonebs every 4 hours while awake and every 2 hours when necessary. Vitamin D 5000 international units p.o. every morning Zinc sulfate turn 200 mg p.o. every morning Guaifenesin extended release 1200 mg p.o. twice daily Nasal cannula oxygen, titrate to keep pulse ox 92-94% (2) Acute respiratory failure with hypoxia: Plan: See above (3) Hypertension: Plan: Hold amlodipine, triamterene/HCTZ and lisinopril. (4) Diabetes mellitus: Plan: insulin glargine 30 u bid, ssi plus nph to help cover decadron induced hyperglycemia hemoglobin A1c 6.5 implying good control Expect glucose to become more elevated while being on Decadron (5) Hyperlipidemia: Plan: Continue simvastatin (6) Acid reflux: Plan: Continue famotidine Admission and Anticipated Discharge Date Admission Date: December 29, 2021 Subjective pt was seen in room she is in moderate but stable respiratory distress on Vapotherm oxygen, does have some intertrigo and uncontrolled glucose from steroids Review of Systems Review of Systems: Moderate distress and fatigue no headache, no visual changes no speech or swallowing issues no chest pain, pressure or palpitations Continue shortness of breath, nonproductive cough or wheezes no abdominal pain, nausea or vomiting, no diarrhea no dysuria, hematuria or frequency no focal joint pain or swelling no back pain, CVA tenderness or radicular pain no bruising, bleeding or rashes no focal signs of weakness or numbness or altered sensation no complaints of anxiety or depression.. Physical Exam Physical Exam: The patient appeared mild to moderate respiratory distress Vital signs as documented. Head exam is normocephalic atraumatic Neck is without JVD, thyromegaly, or carotid bruits. Lungs are coarse bilaterally in all lung benavides tachypnea Cardiac exam, Rhythm is regular.. No murmurs, rubs or gallops. Abdominal exam reveals normal bowel sounds, soft non tender, no masses Extremities are nonedematous and both pedal pulses are present Neurologic exam is alert and oriented, no focal loss of strength or sensation Skin is with intertrigo Psychologically is without concerns for anxiety or depression. Results & Data Results & Data ([facility]) Vital Signs (Past 12 Hours) Vital Signs Temp Pulse Pulse Resp BP Pulse Ox 12/30/21 12:56 97 H 12/30/21 12:22 88 18 92 12/30/21 11:15 98.6 F 92 H 18 112/70 93 12/30/21 07:33 87 18 94 12/30/21 07:32 87 18 94 12/30/21 07:21 99.0 F 87 24 100/53 L 97 12/30/21 06:48 24 92 12/30/21 05:23 92 H 21 97 12/30/21 02:50 99.0 F 93 H 20 86/46 L 91 PG Care Time/CCT Total # of Minutes Spent Total Time Spent with Patient: Total time spent is greater than 50% in coordination of care (as documented) at patient's floor/unit and/or counseling patient: Coding Level of Care Code 77714 Subseq Hosp Care Lvl 3 Diagnoses Pneumonia due to COVID-19 virus U07.1; J12.82 Acute respiratory failure with hypoxia J96.01 Hypertension I10 Diabetes mellitus E11.9 Hyperlipidemia E78.5 Acid reflux K21.9
[2021-12-30] MEDS ORDERED: INSULIN HUMAN NPH SC ONE (14:30)
[2021-12-30] MEDS: TRIAMTERENE/HCTZ 37.5/25MG TAB PO SCH (19:48)
[2021-12-30] MEDS: REMDESIVIR 100 MG in SODIUM CHLORIDE 0.9% 230 ML IV SCH (19:59)
[2021-12-30] MEDS ORDERED: cefTRIAXone SODIUM 2,000 MG in DEXTROSE 5% 50 ML IV SCH (21:00)
[2021-12-30] MEDS: AZITHROMYCIN 500 MG in DEXTROSE 5% 250 ML IV SCH (21:26)
--- NOTE | 2021-12-31 08:07 | Hospitalist Progress Note ---
Date of Service December 31, 2021 Assessment & Plan (1) Pneumonia due to COVID-19 virus: Plan: Pneumonia due to COVID-19 virus/acute respiratory failure with hypoxia- first symptoms 12/26/21 covid test + 12/29/21 oxygen at admission quickly progressed to vapotherm 30 L 60% unvaccinated former smoker, morbidly obese with BMI 69 and insulin requiring diabetic Given Decadron 10 mg IV in ER, and 6 mg IV daily starting 12/30/21 Remdesivir IV per protocol crp 5.67 does not qualify for baricitinib Azithromycin 500 mg IV daily Duonebs every 4 hours while awake and every 2 hours when necessary. Vitamin D 5000 international units p.o. every morning Zinc sulfate turn 200 mg p.o. every morning Guaifenesin extended release 1200 mg p.o. twice daily Nasal cannula oxygen, titrate to keep pulse ox 92-94% restarted typical home po diuretic or triam/hctz (2) Acute respiratory failure with hypoxia: Plan: See above (3) Hypertension: Plan: Hold amlodipine, triamterene/HCTZ and lisinopril. (4) Diabetes mellitus: Plan: insulin glargine 30 u bid, ssi plus nph to help cover decadron induced hyperglycemia hemoglobin A1c 6.5 implying good control Expect glucose to become more elevated while being on Decadron (5) Hyperlipidemia: Plan: Continue simvastatin (6) Acid reflux: Plan: Continue famotidine Admission and Anticipated Discharge Date Admission Date: December 29, 2021 Subjective pt was seen in room she is in moderate but stable respiratory distress able to come down to wall high flow oxygen at 13-15 L but desaturates easily when speaking, non productive cough Review of Systems Review of Systems: Moderate distress and fatigue no headache, no visual changes no speech or swallowing issues no chest pain, pressure or palpitations Continue shortness of breath, nonproductive cough or wheezes no abdominal pain, nausea or vomiting, no diarrhea no dysuria, hematuria or frequency no focal joint pain or swelling no back pain, CVA tenderness or radicular pain no bruising, bleeding or rashes no focal signs of weakness or numbness or altered sensation no complaints of anxiety or depression.. Physical Exam Physical Exam: The patient appeared mild to moderate respiratory distress Vital signs as documented. Head exam is normocephalic atraumatic Neck is without JVD, thyromegaly, or carotid bruits. Lungs are coarse bilaterally in all lung benavides tachypnea Cardiac exam, Rhythm is regular.. No murmurs, rubs or gallops. Abdominal exam reveals normal bowel sounds, soft non tender, no masses Extremities are nonedematous and both pedal pulses are present Neurologic exam is alert and oriented, no focal loss of strength or sensation Skin is with intertrigo Psychologically is without concerns for anxiety or depression. Results & Data Results & Data ([facility]) Vital Signs (Past 12 Hours) Vital Signs Temp Pulse Pulse Resp BP Pulse Ox 12/31/21 07:17 98.6 F 95 H 22 125/87 92 12/31/21 07:04 105 H 18 91 12/31/21 03:34 98.8 F 86 19 115/64 93 12/31/21 03:10 85 18 92 12/31/21 01:52 92 H 12/30/21 23:30 99.5 F 91 H 16 106/60 93 12/30/21 22:53 99.0 F 93 H 22 122/67 93 12/30/21 22:20 90 20 91 PG Care Time/CCT Total # of Minutes Spent Total Time Spent with Patient: Total time spent is greater than 50% in coordination of care (as documented) at patient's floor/unit and/or counseling patient: Coding Level of Care Code 41107 Subseq Hosp Care Lvl 3 Diagnoses Pneumonia due to COVID-19 virus U07.1; J12.82 Acute respiratory failure with hypoxia J96.01 Hypertension I10 Diabetes mellitus E11.9 Hyperlipidemia E78.5 Acid reflux K21.9
[2021-12-31 08:30] LABS: Albumin Globulin Ratio 1.1 (0.9-2); Albumin Level 3.5 gm/dl (3.4-5.0); Bilirubin,Total 0.4 mg/dl (0.2-1.0); Calcium 8.6 mg/dl (8.5-10.1); Creatinine Clr Calc Pharmacy 126.7 ml/min; Est GFR (Non-African American) 84.5 ml/min; Globulin 3.1 gm/dl (2.5-4.0); Potassium 4.6 mmol/L (3.5-5.1); Total Protein 6.6 gm/dl (6.0-8.3)
[2021-12-31] MEDS: FAMOTIDINE 20 MG TAB PO SCH ×2 (08:37→20:21)
[2021-12-31] MEDS: CETIRIZINE HCL 10 MG TABLET PO SCH (08:38)
[2021-12-31] MEDS: CHOLECALCIFEROL 5,000 UNITS 125 MCG TAB PO SCH (08:38)
[2021-12-31] MEDS: CYANOCOBALAMIN (B-12) 500 MCG TABLET PO SCH (08:38)
[2021-12-31] MEDS: SIMVASTATIN 20 MG TAB PO SCH (08:38)
[2021-12-31] MEDS: guaiFENesin 600 MG TABCR PO SCH ×2 (08:38→20:21)
[2021-12-31] MEDS: ZINC SULFATE 220 MG CAPSULE PO SCH (08:38)
[2021-12-31] MEDS: TRIAMTERENE/HCTZ 37.5/25MG TAB PO SCH ×2 (08:39→17:21)
[2021-12-31] MEDS: dexAMETHasone 6 MG in SYRINGE 0 ML IV SCH (08:39)
[2021-12-31] MEDS: INSULIN ASPART PER UNIT SC SCH ×4 (08:46→20:12)
[2021-12-31] MEDS: INSULIN GLARGINE SOLOSTAR 100 UNITS/ML 3 ML PEN SC SCH ×2 (08:47→20:13)
[2021-12-31] MEDS ORDERED: FLUCONAZOLE 50 MG TAB PO SCH (09:00)
[2021-12-31] MEDS: INSULIN HUMAN NPH SC SCH (12:19)
[2021-12-31] MEDS: REMDESIVIR 100 MG in SODIUM CHLORIDE 0.9% 230 ML IV SCH (20:20)
[2021-12-31] MEDS: AZITHROMYCIN 500 MG in DEXTROSE 5% 250 ML IV SCH (21:32)
[2022-01-01 07:58] LABS: Albumin Globulin Ratio 1.2 (0.9-2); Albumin Level 3.5 gm/dl (3.4-5.0); BUN Creatinine Ratio 27.1 (10-20); Bilirubin,Total 0.5 mg/dl (0.2-1.0); Calcium 8.7 mg/dl (8.5-10.1); Creatinine Clr Calc Pharmacy 109.6 ml/min; Est GFR (African American) 88.2 ml/min; Est GFR (Non-African American) 76.1 ml/min; Potassium 4.5 mmol/L (3.5-5.1); Total Protein 6.5 gm/dl (6.0-8.3)
[2022-01-01] MEDS: FAMOTIDINE 20 MG TAB PO SCH ×2 (08:37→20:59)
[2022-01-01] MEDS: guaiFENesin 600 MG TABCR PO SCH ×2 (08:37→20:59)
[2022-01-01] MEDS: CETIRIZINE HCL 10 MG TABLET PO SCH (08:37)
[2022-01-01] MEDS: TRIAMTERENE/HCTZ 37.5/25MG TAB PO SCH ×2 (08:37→17:57)
[2022-01-01] MEDS: ZINC SULFATE 220 MG CAPSULE PO SCH (08:38)
[2022-01-01] MEDS: CHOLECALCIFEROL 5,000 UNITS 125 MCG TAB PO SCH (08:38)
[2022-01-01] MEDS: SIMVASTATIN 20 MG TAB PO SCH (08:38)
[2022-01-01] MEDS: CYANOCOBALAMIN (B-12) 500 MCG TABLET PO SCH (08:38)
[2022-01-01] MEDS: INSULIN GLARGINE SOLOSTAR 100 UNITS/ML 3 ML PEN SC SCH ×2 (08:39→20:53)
[2022-01-01] MEDS: INSULIN HUMAN NPH SC SCH (08:39)
[2022-01-01] MEDS: INSULIN ASPART PER UNIT SC SCH ×4 (08:40→20:52)
[2022-01-01] MEDS: dexAMETHasone 6 MG in SYRINGE 0 ML IV SCH (08:41)
--- NOTE | 2022-01-01 09:06 | Hospitalist Progress Note ---
Date of Service January 01, 2022 Assessment & Plan (1) Pneumonia due to COVID-19 virus: Plan: Pneumonia due to COVID-19 virus/acute respiratory failure with hypoxia- first symptoms 12/26/21 covid test + 12/29/21 oxygen at admission quickly progressed to vapotherm 30 L 60% unvaccinated former smoker, morbidly obese with BMI 69 and insulin requiring diabetic Given Decadron 10 mg IV in ER, and 6 mg IV daily starting 12/30/21 Remdesivir IV per protocol crp 5.67 does not qualify for baricitinib Azithromycin 500 mg IV daily Duonebs every 4 hours while awake and every 2 hours when necessary. Vitamin D 5000 international units p.o. every morning Zinc sulfate turn 200 mg p.o. every morning Guaifenesin extended release 1200 mg p.o. twice daily Nasal cannula oxygen, titrate to keep pulse ox 92-94% restarted typical home po diuretic or triam/hctz (2) Acute respiratory failure with hypoxia: Plan: See above (3) Hypertension: Plan: Hold amlodipine, triamterene/HCTZ and lisinopril. (4) Diabetes mellitus: Plan: insulin glargine 30 u bid, ssi plus nph to help cover decadron induced hyperglycemia hemoglobin A1c 6.5 implying good control Expect glucose to become more elevated while being on Decadron (5) Hyperlipidemia: Plan: Continue simvastatin (6) Acid reflux: Plan: Continue famotidine (7) DVT prophylaxis: Plan: lovenox for dvt prevention Admission and Anticipated Discharge Date Admission Date: December 29, 2021 Subjective pt was seen in room she is in moderate but stable respiratory distress has been alternating between wall high flow and nasal cannula oxygen at 13-15 L but desaturates easily when speaking, non productive cough Review of Systems Review of Systems: Moderate distress and fatigue no headache, no visual changes no speech or swallowing issues no chest pain, pressure or palpitations Continue shortness of breath, nonproductive cough or wheezes no abdominal pain, nausea or vomiting, no diarrhea no dysuria, hematuria or frequency no focal joint pain or swelling no back pain, CVA tenderness or radicular pain no bruising, bleeding or rashes no focal signs of weakness or numbness or altered sensation no complaints of anxiety or depression.. Physical Exam 2 Physical Exam: The patient appeared mild to moderate respiratory distress Vital signs as documented. Head exam is normocephalic atraumatic Neck is without JVD, thyromegaly, or carotid bruits. Lungs are coarse bilaterally in all lung benavides tachypnea Cardiac exam, Rhythm is regular.. No murmurs, rubs or gallops. Abdominal exam reveals normal bowel sounds, soft non tender, no masses Extremities are nonedematous and both pedal pulses are present Neurologic exam is alert and oriented, no focal loss of strength or sensation Skin is with intertrigo Psychologically is without concerns for anxiety or depression. Results & Data Results & Data ([facility]) Vital Signs (Past 12 Hours) Vital Signs Temp Pulse Pulse Resp BP Pulse Ox 01/01/22 08:00 98.8 F 100 H 30 H 124/78 88 L 01/01/22 04:32 91 H 01/01/22 04:04 98.4 F 85 16 120/75 92 12/31/21 23:22 99.0 F 89 16 110/68 94 PG Care Time/CCT Total # of Minutes Spent Total Time Spent with Patient: Total time spent is greater than 50% in coordination of care (as documented) at patient's floor/unit and/or counseling patient: Coding Level of Care Code 51943 Subseq Hosp Care Lvl 3 Diagnoses Pneumonia due to COVID-19 virus U07.1; J12.82 Acute respiratory failure with hypoxia J96.01 Hypertension I10 Diabetes mellitus E11.9 Hyperlipidemia E78.5 Acid reflux K21.9 DVT prophylaxis Z29.9
[2022-01-01] MEDS: ENOXAPARIN INJ 40 MG/0.4 ML SYR SQ SCH (18:42)
[2022-01-01] MEDS: REMDESIVIR 100 MG in SODIUM CHLORIDE 0.9% 230 ML IV SCH (20:58)
[2022-01-01] MEDS: AZITHROMYCIN 500 MG in DEXTROSE 5% 250 ML IV SCH (22:40)
[2022-01-02] MEDS: ENOXAPARIN INJ 40 MG/0.4 ML SYR SQ SCH ×2 (05:25→17:24)
[2022-01-02 06:57] LABS: D Dimer 430 ug/L FEU (0-500)
[2022-01-02] MEDS: FUROSEMIDE INJ 20 MG/2 ML VIAL IV SCH (08:36)
[2022-01-02] MEDS: dexAMETHasone 6 MG in SYRINGE 0 ML IV SCH ×2 (08:36→20:13)
[2022-01-02] MEDS: FAMOTIDINE 20 MG TAB PO SCH ×2 (08:37→20:14)
[2022-01-02] MEDS: CYANOCOBALAMIN (B-12) 500 MCG TABLET PO SCH (08:37)
[2022-01-02] MEDS: ZINC SULFATE 220 MG CAPSULE PO SCH (08:37)
[2022-01-02] MEDS: guaiFENesin 600 MG TABCR PO SCH ×2 (08:37→20:13)
[2022-01-02] MEDS: CETIRIZINE HCL 10 MG TABLET PO SCH (08:37)
[2022-01-02] MEDS: CHOLECALCIFEROL 5,000 UNITS 125 MCG TAB PO SCH (08:38)
[2022-01-02] MEDS: SIMVASTATIN 20 MG TAB PO SCH (08:38)
[2022-01-02] MEDS: INSULIN GLARGINE SOLOSTAR 100 UNITS/ML 3 ML PEN SC SCH ×2 (09:18→20:26)
[2022-01-02] MEDS: INSULIN ASPART PER UNIT SC SCH ×4 (09:18→20:25)
[2022-01-02] MEDS: INSULIN HUMAN NPH SC SCH (09:18)
--- NOTE | 2022-01-02 16:38 | Hospitalist Progress Note ---
Date of Service January 02, 2022 Assessment & Plan (1) Pneumonia due to COVID-19 virus: Plan: Pneumonia due to COVID-19 virus/acute respiratory failure with hypoxia- first symptoms 12/26/21 covid test + 12/29/21 oxygen at admission quickly progressed to vapotherm 30 L 60% unvaccinated former smoker, morbidly obese with BMI 69 and insulin requiring diabetic Given Decadron 10 mg IV in ER, and 6 mg IV daily starting 12/30/21 Remdesivir IV per protocol crp 5.67 does not qualify for baricitinib Azithromycin 500 mg IV daily Duonebs every 4 hours while awake and every 2 hours when necessary. Vitamin D 5000 international units p.o. every morning Zinc sulfate turn 200 mg p.o. every morning Guaifenesin extended release 1200 mg p.o. twice daily Nasal cannula oxygen, titrate to keep pulse ox 92-94% restarted typical home po diuretic of triam/hctz overall concern that the pt has not improved over last few days, but continues on high oxygen demands (2) Acute respiratory failure with hypoxia: Plan: See above (3) Hypertension: Plan: Hold amlodipine, triamterene/HCTZ and lisinopril. (4) Diabetes mellitus: Plan: insulin glargine 30 u bid, ssi plus nph to help cover decadron induced hyperglycemia hemoglobin A1c 6.5 implying good control Expect glucose to become more elevated while being on Decadron (5) Hyperlipidemia: Plan: Continue simvastatin (6) Acid reflux: Plan: Continue famotidine (7) DVT prophylaxis: Plan: lovenox for dvt prevention Admission and Anticipated Discharge Date Admission Date: December 29, 2021 Subjective pt was seen in room she is in moderate but stable respiratory distress has been alternating between wall high flow and nasal cannula oxygen at 13-15 L but desaturates easily when speaking, non productive cough Review of Systems Review of Systems: Moderate distress and fatigue no headache, no visual changes no speech or swallowing issues no chest pain, pressure or palpitations Continue shortness of breath, nonproductive cough or wheezes no abdominal pain, nausea or vomiting, no diarrhea no dysuria, hematuria or frequency no focal joint pain or swelling no back pain, CVA tenderness or radicular pain no bruising, bleeding or rashes no focal signs of weakness or numbness or altered sensation no complaints of anxiety or depression.. Physical Exam Physical Exam: The patient appeared mild to moderate respiratory distress Vital signs as documented. Head exam is normocephalic atraumatic Neck is without JVD, thyromegaly, or carotid bruits. Lungs are coarse bilaterally in all lung benavides tachypnea Cardiac exam, Rhythm is regular.. No murmurs, rubs or gallops. Abdominal exam reveals normal bowel sounds, soft non tender, no masses Extremities are nonedematous and both pedal pulses are present Neurologic exam is alert and oriented, no focal loss of strength or sensation Skin is with intertrigo Psychologically is without concerns for anxiety or depression. Results & Data Results & Data ([facility]) Vital Signs (Past 12 Hours) Vital Signs Temp Pulse Pulse Resp BP BP Pulse Ox 01/02/22 16:18 98.1 F 92 H 14 112/81 94 01/02/22 15:13 68 01/02/22 11:32 98.4 F 01/02/22 11:30 100 H 14 137/68 91 01/02/22 07:19 98 H 01/02/22 07:11 97.9 F 78 14 108/69 90 PG Care Time/CCT Total # of Minutes Spent Total Time Spent with Patient: Total time spent is greater than 50% in coordination of care (as documented) at patient's floor/unit and/or counseling patient: Coding Level of Care Code 89621 Subseq Hosp Care Lvl 2 Diagnoses Pneumonia due to COVID-19 virus U07.1; J12.82 Acute respiratory failure with hypoxia J96.01 Hypertension I10 Diabetes mellitus E11.9 Hyperlipidemia E78.5 Acid reflux K21.9 DVT prophylaxis Z29.9
[2022-01-02] MEDS: REMDESIVIR 100 MG in SODIUM CHLORIDE 0.9% 230 ML IV SCH (20:32)
[2022-01-02] MEDS: AZITHROMYCIN 500 MG in DEXTROSE 5% 250 ML IV SCH (21:43)
[2022-01-03] MEDS: ENOXAPARIN INJ 40 MG/0.4 ML SYR SQ SCH ×2 (05:52→18:13)
--- NOTE | 2022-01-03 07:23 | Hospitalist Progress Note ---
Date of Service January 03, 2022 Assessment & Plan (1) Pneumonia due to COVID-19 virus: Plan: Pneumonia due to COVID-19 virus/acute respiratory failure with hypoxia- first symptoms 12/26/21 covid test + 12/29/21 oxygen at admission quickly progressed to vapotherm 30 L 60% unvaccinated former smoker, morbidly obese with BMI 69 and insulin requiring diabetic Given Decadron 10 mg IV in ER, and 6 mg IV daily starting 12/30/21 Remdesivir IV per protocol crp 5.67 did not qualify for baricitinib Azithromycin 500 mg IV daily Duonebs every 4 hours while awake and every 2 hours when necessary. Vitamin D 5000 international units p.o. every morning Zinc sulfate turn 200 mg p.o. every morning Guaifenesin extended release 1200 mg p.o. twice daily Nasal cannula oxygen, titrate to keep pulse ox 92-94% restarted typical home po diuretic of triam/hctz overall concern that the pt has not improved over last few days, but continues on high oxygen demands, but has remained stable in this regard (2) Acute respiratory failure with hypoxia: Plan: See above (3) Hypertension: Plan: Hold amlodipine, triamterene/HCTZ and lisinopril. (4) Diabetes mellitus: Plan: insulin glargine 30 u bid, ssi plus nph to help cover decadron induced hyperglycemia hemoglobin A1c 6.5 implying good control Expect glucose to become more elevated while being on Decadron glucose is not in good control will tighten the ssi and nph dosing (5) Hyperlipidemia: Plan: Continue simvastatin (6) Acid reflux: Plan: Continue famotidine (7) DVT prophylaxis: Plan: lovenox for dvt prevention Admission and Anticipated Discharge Date Admission Date: December 29, 2021 Subjective pt was seen in room she is in moderate but stable and improving respiratory distress has been alternating between wall high flow and nasal cannula oxygen at 13-15 L but desaturates easily when speaking, non productive cough, was able to walk across room and go to bathroom Review of Systems Review of Systems: Moderate distress and fatigue no headache, no visual changes no speech or swallowing issues no chest pain, pressure or palpitations Continue shortness of breath, nonproductive cough or wheezes no abdominal pain, nausea or vomiting, no diarrhea no dysuria, hematuria or frequency no focal joint pain or swelling no back pain, CVA tenderness or radicular pain no bruising, bleeding or rashes no focal signs of weakness or numbness or altered sensation no complaints of anxiety or depression.. Physical Exam Physical Exam: The patient appeared mild to moderate respiratory distress Vital signs as documented. Head exam is normocephalic atraumatic Neck is without JVD, thyromegaly, or carotid bruits. Lungs are coarse bilaterally in all lung benavides tachypnea Cardiac exam, Rhythm is regular.. No murmurs, rubs or gallops. Abdominal exam reveals normal bowel sounds, soft non tender, no masses Extremities are nonedematous and both pedal pulses are present Neurologic exam is alert and oriented, no focal loss of strength or sensation Skin is with intertrigo Psychologically is without concerns for anxiety or depression. Results & Data Results & Data ([facility]) Vital Signs (Past 12 Hours) Vital Signs Temp Pulse Pulse Resp BP Pulse Ox Pulse Ox 01/03/22 07:13 98.1 F 61 16 121/77 93 01/03/22 03:50 97.9 F 74 16 96/61 L 94 01/03/22 00:04 97.3 F L 96 H 18 125/74 91 01/02/22 23:51 73 01/02/22 23:00 93 01/02/22 20:21 98.6 F 85 20 113/85 92 PG Care Time/CCT Total # of Minutes Spent Total Time Spent with Patient: Total time spent is greater than 50% in coordination of care (as documented) at patient's floor/unit and/or counseling patient: Coding Level of Care Code 60763 Subseq Hosp Care Lvl 2 Diagnoses Pneumonia due to COVID-19 virus U07.1; J12.82 Acute respiratory failure with hypoxia J96.01 Hypertension I10 Diabetes mellitus E11.9 Hyperlipidemia E78.5 Acid reflux K21.9 DVT prophylaxis Z29.9
[2022-01-03] MEDS: INSULIN ASPART PER UNIT SC SCH ×4 (08:31→20:42)
[2022-01-03] MEDS: dexAMETHasone 6 MG in SYRINGE 0 ML IV SCH ×2 (08:31→21:10)
[2022-01-03] MEDS: CETIRIZINE HCL 10 MG TABLET PO SCH (08:32)
[2022-01-03] MEDS: CYANOCOBALAMIN (B-12) 500 MCG TABLET PO SCH (08:32)
[2022-01-03] MEDS: ZINC SULFATE 220 MG CAPSULE PO SCH (08:32)
[2022-01-03] MEDS: guaiFENesin 600 MG TABCR PO SCH ×2 (08:32→20:33)
[2022-01-03] MEDS: FAMOTIDINE 20 MG TAB PO SCH ×2 (08:32→20:34)
[2022-01-03] MEDS: CHOLECALCIFEROL 5,000 UNITS 125 MCG TAB PO SCH (08:32)
[2022-01-03] MEDS: INSULIN HUMAN NPH SC SCH (08:33)
[2022-01-03] MEDS: SIMVASTATIN 20 MG TAB PO SCH (08:33)
[2022-01-03] MEDS: FUROSEMIDE INJ 20 MG/2 ML VIAL IV SCH (08:33)
[2022-01-03] MEDS: INSULIN GLARGINE SOLOSTAR 100 UNITS/ML 3 ML PEN SC SCH ×2 (08:34→20:43)
[2022-01-03] MEDS ORDERED: POLYETHYLENE (MIRALAX) 17 GM PACK PO PRN (20:47)
[2022-01-03] MEDS: AZITHROMYCIN 500 MG in DEXTROSE 5% 250 ML IV SCH (21:57)
[2022-01-04] MEDS: ENOXAPARIN INJ 40 MG/0.4 ML SYR SQ SCH (06:06)
[2022-01-04 07:54] LABS: Creatinine Clr Calc Pharmacy 108.4 ml/min; Est GFR (African American) 87.1 ml/min; Est GFR (Non-African American) 75.1 ml/min
[2022-01-04] MEDS ORDERED: INSULIN HUMAN NPH SC SCH (09:00)
[2022-01-04] MEDS: SIMVASTATIN 20 MG TAB PO SCH (09:06)
[2022-01-04] MEDS: ZINC SULFATE 220 MG CAPSULE PO SCH (09:06)
[2022-01-04] MEDS: FUROSEMIDE INJ 20 MG/2 ML VIAL IV SCH (09:06)
[2022-01-04] MEDS: dexAMETHasone 6 MG in SYRINGE 0 ML IV SCH (09:06)
[2022-01-04] MEDS: FAMOTIDINE 20 MG TAB PO SCH (09:07)
[2022-01-04] MEDS: CETIRIZINE HCL 10 MG TABLET PO SCH (09:07)
[2022-01-04] MEDS: CYANOCOBALAMIN (B-12) 500 MCG TABLET PO SCH (09:07)
[2022-01-04] MEDS: CHOLECALCIFEROL 5,000 UNITS 125 MCG TAB PO SCH (09:07)
[2022-01-04] MEDS: guaiFENesin 600 MG TABCR PO SCH (09:07)
[2022-01-04] MEDS: INSULIN ASPART PER UNIT SC SCH ×2 (09:21→13:04)
[2022-01-04] MEDS: INSULIN GLARGINE SOLOSTAR 100 UNITS/ML 3 ML PEN SC SCH (09:23)
--- NOTE | 2022-01-04 17:45 | Discharge Summary ---
Date of Service January 04, 2022 Admission HPI Per Admitting Provider The patient is a 36-year-old female with a past medical history including diabetes mellitus, hypertension, GERD, hyperlipidemia, and morbid obesity. She presents with 8 days of symptoms noted above. Laboratory evaluation emergency department included a positive test for COVID-19, and negative test for influenza. Pulse ox was 88% on room air. Chest x-ray showed moderate to severe multifocal pneumonia. Principal Diagnosis COVID-19 positive test (U07.1, COVID-19) with Acute Pneumonia (J12.89, Other viral pneumonia) (If respiratory failure or sepsis present, add as separate assessment) Acute hypoxic respiratory failure Discharge Exam The patient appeared well Vital signs as documented. Lungs are clear to auscultation and appear unlabored Discharge Data Allergies Allergy/AdvReac Type Severity Reaction Status Date / Time doxycycline Allergy Severe hives Verified 12/29/21 21:20 Estrogens Allergy Severe ANAPHYLAXIS Verified 12/29/21 21:20 WITH CONTROL PILLS lithium Allergy Severe ANAPHYLAXIS Verified 12/29/21 21:20 sulfamethoxazole Allergy Severe red skin, Verified 12/29/21 21:20 [From Bactrim] itchy trimethoprim [From Bactrim] Allergy Severe red skin, Verified 12/29/21 21:20 itchy SOAPCLEAN Allergy Mild RASH Uncoded 12/29/21 21:20 ([employer]ACIAL [employer]ERS) Consultations 12/29/21 22:45 ED Decision to Admit Stat Hospital Course (1) Pneumonia due to COVID-19 virus: Pneumonia due to COVID-19 virus/acute respiratory failure with hypoxia- first symptoms 12/26/21 covid test + 12/29/21 oxygen at admission quickly progressed to vapotherm 30 L 60% unvaccinated former smoker, morbidly obese with BMI 69 and insulin requiring diabetic Given Decadron 10 mg IV in ER, and 6 mg IV daily starting 12/30/21 complete remainder of course as outpatient oral dexamethasone Remdesivir pleated inpatient course crp 5.67 did not qualify for baricitinib Azithromycin completed inpatient course Due to concerns for VTE patient will be discharged on Xarelto 10 mg a day for 30 days overall concern that the pt has not improved over last few days, but continues on high oxygen demands, but has remained stable in this regard (2) Acute respiratory failure with hypoxia: See above (3) Hypertension: Resume amlodipine, triamterene/HCTZ and lisinopril. (4) Diabetes mellitus: Patient returned outpatient basal bolus insulin with semaglutide injections (5) Hyperlipidemia: Continue simvastatin (6) Acid reflux: Continue famotidine (7) DVT prophylaxis: Potential abuse after discharge for DVT prevention as patient is high risk Total Time Total Time Spent Total Time Spent (In Minutes): It required greater than 30 minutes to prepare this patient for discharge Discharge Plan Discharge Items Patient Disposition: Home - Self-Care Reason For Visit: COVID-19 PNEUMONIA, ACUTE RESP FAILURE W/ HYPOXIA Discharge Diagnosis: acute hypoxic respiratory failure covid pneumonia Condition on Discharge: Serious Activity: Per Instructions section Activity Comment: slowly increase activity Non-emergency contact: Primary Care Provider Call non-emergency contact if: you have any medication questions and your symptoms worsen Follow-up/Referrals: Oliver Sheikh MD [Primary Care Provider] - Diet: Carb Consistent or DM2 Addtl Attending Provider Instructions: You have been diagnosed with covid infection, it would be recommended that you quarantine yourself for 10 days from your first test or first symptoms, and if at the 10th day you have no symptoms the you can come off quarantine but use common sense precautions. Quarantine means attempting to stay away from people who have not had an active covid infection in the past, and if you have to be around others to wear a mask even if you are indoors, do not share a room to sleep in with others until you are out of quarantine. If you still have symptoms at the 10th day, continue to quarantine until you are symptom free for 48 hours please take your Dexamethasone until complete Infections with Covid causes an increased risk of having a blood clot which could lead to a serious complication if the blood clot would travel to your lung. Because you will continue to recover from Covid over next 30 days will be given a prescription for low level blood thinner to take to prevent blood clots. All of this medication if you have any bruising or bleeding please stop the medication and contact your primary care provider immediately Please contact your primary care provider at your earliest convenience to schedule a telephone follow-up visit and eventual home visit once you are out of quarantine for Covid infection Medication Instructions: Your condition is typically treated with an anticoagulant. Anticoagulants will thin your blood to help prevent new clots. * You should take her medication exactly as directed. * Never skip a dose. * Never take a double dose. If you miss a dose, take it as soon as you remember. Call your Primary Care doctor if you experience any of the following: * Swelling or Pain in your leg * Sudden, continuous pain deep in a muscle * Pain that worsens when you are active or when you stand still for a long time * Chest Pain * Sudden Shortness of Breath * Rapid or pounding heart beat * Fainting * Dizziness * Cough with blood or bloody sputum * Sweating more than normal * Bruises * Heavy or uncontrolled bleeding * Blood in your urine, stool or vomit * Black or tarry stools Caring for Your Self at Home: * Avoid sitting, standing or lying down for long periods without moving your legs and feet * When traveling by car, stop to get out and move around at least once every 3 hours * On long airplane, train or bus rides, get up and move around when possible * If you can't get up, wiggle your toes and tighten your calves to keep your blood moving Follow Up: It is important for you to keep your follow up appointments with your medical provider. Pending Studies at Discharge: No Stand-Alone Forms: My [facility], Smoking Cessation Medications and DC Order Prescriptions: New dexamethasone [Decadron] 6 mg tablet 6 mg PO DAILY Qty: 4 RF: 0 Xarelto 10 mg tablet 10 mg PO DAILY 30 Days Qty: 30 RF: 0 Continued (DME) OneTouch Ultra Blue Test Strip Strip See Rx Instructions .ROUTE .MEDSUPPLY Qty: 300 RF: 3 mecobalamin (vitamin B12) 1,000 mcg tablet,chewable 1,000 mcg PO DAILY Qty: 30 RF: 0 lisinopril 10 mg tablet 10 mg PO DAILY Qty: 90 RF: 3 cetirizine 10 mg tablet 10 mg PO DAILY Qty: 90 RF: 3 fluconazole [Diflucan] 150 mg tablet 150 mg PO .weekly 180 Days Qty: 24 RF: 0 Tresiba FlexTouch U-200 200 unit/mL (3 mL) insulin pen 60 unit subcut DAILY Qty: 27 RF: 3 amlodipine [Norvasc] 5 mg tablet 5 mg PO DAILY Qty: 90 RF: 3 simvastatin 20 mg tablet 20 mg PO DAILY Qty: 90 RF: 3 famotidine 20 mg tablet 20 mg PO BID Qty: 180 RF: 3 semaglutide 1 mg/dose (4 mg/3 mL) pen injector 1 mg subcut ONCE Qty: 3 RF: 5 (DME) pen needle, diabetic [1st Tier Unifine Pentips] 31 gauge x 1/4" needle See Rx Instructions .ROUTE .MEDSUPPLY Qty: 200 RF: 3 (DME) lancets [OneTouch Delica Plus Lancet] 30 gauge misc See Rx Instructions .ROUTE .MEDSUPPLY Qty: 300 RF: 3 medroxyprogesterone 2.5 mg tablet 2.5 mg PO DAILY Qty: 90 RF: 5 Lyumjev KwikPen U-100 Insulin 100 unit/mL insulin pen 5 unit subcut TID Qty: 1 RF: 3 triamterene-hydrochlorothiazid 37.5-25 mg tablet 1 tab PO BID Qty: 60 RF: 5 (DME) blood-glucose meter [OneTouch Ultra2 Meter] Kit See Rx Instructions .ROUTE .MEDSUPPLY RF: 0 Discharge Orders: Discharge Order (Routine); Ordered 01/04/22 Ordered By: Misael Allen/Other Patient Handouts: Managing Type 2 Diabetes Admission Data Admit Date/Time: 12/29/21 22:37 Attending Provider: Misael Hong Admit Provider: Blair Louis Primary Care Provider: Oliver Sheikh Other Providers: Blair Louis Other Interventions: Discharge Summary Assessment (RN) Last Done: 01/04/22 13:51 Coding Level of Care Code D/C DAY MANAGEMENT >30 MINS Diagnoses Pneumonia due to COVID-19 virus U07.1; J12.82 Acute respiratory failure with hypoxia J96.01 Hypertension I10 Diabetes mellitus E11.9 Hyperlipidemia E78.5 Acid reflux K21.9 DVT prophylaxis Z29.9
== END 2022-01-04 14:45 | disposition home or self-care (01) | DRG 177 ==
LOC: ED 20:56 → SUATTDRO 22:37 → 2E 22:37
DX: U07.1 COVID-19; K21.9 Gastro-esophageal reflux disease without esophagitis; Z88.2 Allergy status to sulfonamides; T38.0X5A Adverse effect of glucocorticoids and synthetic analogues, initial encounter; J12.82 Pneumonia due to coronavirus disease 2019; Z88.1 Allergy status to other antibiotic agents; Y92.239 Unspecified place in hospital as the place of occurrence of the external cause; Z87.891 Personal history of nicotine dependence; E09.9 Drug or chemical induced diabetes mellitus without complications; E66.01 Morbid (severe) obesity due to excess calories; Z83.3 Family history of diabetes mellitus; I10 Essential (primary) hypertension; J96.01 Acute respiratory failure with hypoxia; K76.0 Fatty (change of) liver, not elsewhere classified; Z79.4 Long term (current) use of insulin; E78.5 Hyperlipidemia, unspecified; Z68.44 Body mass index [BMI] 60.0-69.9, adult

== ENCOUNTER 2022-01-13 07:50 | Inpatient (IN) ==
[2022-01-13] MEDS ORDERED: SODIUM CHLORIDE 0.9% 1000ML 1,000 ML IV SCH ×2 (08:15→13:35)
--- NOTE | 2022-01-13 08:30 | XRay Report ---
XR chest 1V portable HISTORY: 36 years-old Female SEPSIS acute sepsis COMPARISON: Chest radiograph 12/29/2021 TECHNIQUE: Portable AP view of the chest FINDINGS: Cardiac silhouette is enlarged. Reticular interstitial opacities with patchy bilateral alveolar opaci ties have mild to moderately improved. No pneumothorax or large pleural effusion. Bones appear grossl y intact. IMPRESSION: Mild to moderately improved aeration of the lungs compatible with resolving pneumonia. Co ntinued follow-up recommended. ACT 112: Negative or not required by law. The above report was generated using voice recognition software. It may contain grammatical, syntax o r spelling errors. Electronically signed by: Arnoldo Sol M.D. 01/13/2022 8:28 AM
--- NOTE | 2022-01-13 08:33 | Emergency Department Note ---
History of Present Illness General Chief complaint: Infection, Wound Stated complaint: INFECTION ON STOMACH Time Seen by Provider: 01/13/22 07:58 History of Present Illness Provider complaint: Abscess Onset (ago): week(s) 2 Location: abdomen Radiation: non-radiation Severity: moderate Pain Consistency: + constant Maximum Pain Intensity: 7 Current Pain Intensity: 7 Quality: + aching and + dull Relieved By: + none Exacerbated By: + none Associated symptoms: + rash; no chest pain, no cough, no fever/chills, no headaches, no nausea/vomiting or no shortness of breath 36-year-old female presents emergency department for abscess. Patient reports that she has had an abscess on her left lower anterior abdominal wall for the last 2 weeks. Patient states this was present when she was in the hospital however over the last week it has gotten worse. She reports is increased in size. She reports no drainage. She reports her blood sugars have been elevated. She reports no fevers. No drainage. Home Medications Medication Instructions Recorded Confirmed Type blood sugar diagnostic [facility]/27/21 01/06/22 Rx Ultra Blue Test Strip) mecobalamin (vitamin B12) 1,000 1,000 mcg PO DAILY #30 tab 04/08/21 01/13/22 Rx mcg chewable tablet lisinopril 10 mg tablet 10 mg PO DAILY #90 tab 05/14/21 01/13/22 Rx fluconazole 150 mg tablet 150 mg PO .weekly 180 Days #24 tab 08/26/21 01/13/22 Rx (Diflucan) triamterene 37.5 1 tab PO BID #60 tab 10/03/21 01/13/22 Rx mg-hydrochlorothiazide 25 mg tablet [facility] 10/[facility] 01/06/22 History Ultra2 Meter) famotidine 20 mg tablet 20 mg PO BID #180 tab 11/19/21 01/13/22 Rx simvastatin 20 mg tablet 20 mg PO DAILY #90 tab 11/19/21 01/13/22 Rx pen needle, diabetic 31 gauge x #200 ea 12/11/21 01/06/22 Rx 1/4" (1st Tier Unifine Pentips) lancets 30 gauge ([facility] #300 ea 12/31/21 01/06/22 Rx Plus Lancet) rivaroxaban 10 mg tablet (Xarelto) 10 mg PO DAILY 30 Days #30 tab 01/04/22 01/13/22 Rx amlodipine 5 mg tablet (Norvasc) 5 mg PO HS 01/13/22 01/13/22 History cetirizine 10 mg tablet 10 mg PO HS 01/13/22 01/13/22 History insulin degludec 200 unit/mL (3 74 unit SUBCUT DAILY@0600 01/13/22 01/13/22 History mL) subcutaneous pen (Tresiba FlexTouch U-200 insulin) insulin lispro-aabc 100 unit/mL 4 unit SUBCUT TIDM 01/13/22 01/13/22 History subcutaneous pen (Lyumjev KwikPen U-100 Insulin) medroxyprogesterone 2.5 mg tablet 2.5 mg PO DAILY 01/13/22 01/13/22 History (Provera) semaglutide 1 mg/dose (4 mg/3 mL) 1 mg SUBCUT WK 01/13/22 01/13/22 History subcutaneous pen injector (Ozempic) Allergies Allergy/AdvReac Type Severity Reaction Status Date / Time doxycycline Allergy Severe hives Verified 01/13/22 10:00 Estrogens Allergy Severe ANAPHYLAXIS Verified 01/13/22 10:00 WITH CONTROL PILLS lithium Allergy Severe ANAPHYLAXIS Verified 01/13/22 10:00 sulfamethoxazole Allergy Severe red skin, Verified 01/13/22 10:00 [From Bactrim] itchy trimethoprim [From Bactrim] Allergy Severe red skin, Verified 01/13/22 10:00 itchy SOAPCLEAN Allergy Mild RASH Uncoded 01/13/22 10:00 (FACIAL CLEANSERS) Past Med/Surg History Medical History Abscess Acid reflux Anxiety and depression Diabetes mellitus Fatty liver History of breast abscess Hyperlipidemia Hypertension Morbid obesity Seasonal allergies Surgical History History of adenoidectomy Hx of tonsillectomy Family History (Updated 01/13/22 @ 13:06 by Jennifer Bah MD) Grandmother (Paternal) Breast cancer Grandmother (Maternal) Colorectal cancer Diabetes Mother Diabetes Gallbladder problem Father , from suicide age 58 Diabetes Heart disease Coronary heart disease, Onset Age: 57 Father had CABG at age 57 Depression Sister Gallbladder problem Other Family history non-contributory Denies family history of Ovarian cancer Prostate cancer Social History (Updated 01/13/22 @ 13:07 by Jennifer Bah MD) Smoking Status: Never smoker Second Hand Exposure: No; Hx Alcohol Use: Yes Alcohol type: wine Alcohol Intake Frequency: Monthly or Less Hx Substance Use: No Preferred Language: Citizen Of [place] Communication Ability: Effective Visual Impairment: No Limitations Hearing Ability: Normal Longitudinal Float Operator Required: No Beliefs That Will Affect Care: None marital status: Single Current Living Situation: Family Current Living Situation Comment: sister current occupational status: disabled Feels Safe at Home: Yes Childhood Exposure to Second-Hand Smoke: Yes caffeine: Yes Dental Care, Regularly: Yes Physical Activity Frequency: 1-2 Times per Week Seatbelt Use: always Sunscreen Use: Yes Assistive Devices: Glasses Review of Systems A total of 10 systems reviewed and were otherwise negative Physical Exam Vital Signs Vital Signs - 24 hr 01/13/22 07:54 01/13/22 09:34 01/13/22 11:01 Temperature 36.8 C Temperature Source Temporal Artery Scan Pulse Rate 100 H Pulse Rate [Finger] 104 H 106 H Respiratory Rate 18 20 22 Blood Pressure 86/64 L Blood Pressure [Left Arm] 114/80 Blood Pressure Mean 71 Blood Pressure Mean [Left Arm] 91 Pulse Oximetry 97 97 96 Oxygen Delivery Method Room Air Room Air Sepsis Recent Fever Within 48 Hours No Sepsis New/Unexplained Change in Mental Status No Sepsis Action Taken by Nursing No Action Required Physical Exam GENERAL: She is oriented to person, place, and time. She appears well-developed and well-nourished. She does not appear distressed. HENT: Exam performed. -Head: Normocephalic and atraumatic. -Right Ear: External ear normal. No mastoid tenderness. -Left Ear: External ear normal. No mastoid tenderness. -Mouth/Throat: The oropharynx is clear and moist. No trismus in the jaw. No dental abscesses or uvula swelling. No oropharyngeal exudate or tonsillar abscesses. EYES: Conjunctivae and EOM are normal. Pupils are equal, round, and reactive to light. Right eye exhibits no discharge. Left eye exhibits no discharge. No scleral icterus. NECK: Normal range of motion. Neck supple. No JVD present. No spinous process tenderness present. No carotid bruit present. No rigidity. No tracheal deviation and normal range of motion present. No Brudzinski's sign and no Kernig's sign noted. CV: Tachycardic rate, regular rhythm, normal heart sounds and intact distal pulses. There is no peripheral edema. Palpable radial pulses bue. PULM/CHEST: Effort normal and breath sounds normal. No respiratory distress. No stridor. She has no wheezes. She has no rales. -Chest Wall: She exhibits no tenderness. ABD: The abdomen is soft and obese. Bowel sounds are normal. She has no distension. No mass is present. There is no tenderness. There is no rebound, no guarding, no Rios's sign and no tenderness at McBurney's point. Rovsig negative MUSC/SKEL: Normal range of motion. There is no peripheral edema, tenderness or deformity. LYMPH: No cervical adenopathy. NEURO: She is alert and oriented to person, place, and time. She has normal strength. No cranial nerve deficit or sensory deficit. Coordination and gait normal. GCS eye subscore is 4. GCS verbal subscore is 5. GCS motor subscore is 6. Cerebellar tests wnl. SKIN: 3X3 cm abscess of the left lower quadrant pannus that is fluctuant with surrounding erythema. Nikolsky negative. PSYCH: She has a normal mood and affect. Behavior is normal. Judgment and thought content normal. Course Course 0758: The patient was evaluated in room B11. A complete history and physical e xam was performed Cardiac monitoring: An order was placed for continuous cardiac monitoring. The monitor shows a rate of 110 with sinus tachycardia rhythm EMR reviewed. Patient was admitted to the hospital from December 29 to January 04, 2022 for COVID-19. During that admission there is no mention of an abscess of the patient's pannus or anterior abdominal wall. Patient was discharged on Decadron and Xarelto. Patient reports she has been taking the anticoagulation. Given the patient is on anticoagulation, will hold off on performing any I&D at this time. 1159: Blood pressure improved with IV fluids. Patient remains tachycardic. Labs show no leukocytosis but does show a lactic acid of 2.2. I did discuss the case with general surgery. Patient was evaluated at the bedside by Dr. Wilson. He recommends antibiotics for the patient and to admit to medicine and states he will plan on performing procedure on her in the next couple days. Discussed the case with Dr. Bah who will evaluate the patient for admission. Administered Medications Vancomycin HCl 2,750 mg/ (Sodium Chloride) 555 mls @ 200 mls/hr IV NOW ONE Stop: 01/13/22 14:34 Last Admin: 01/13/22 12:55 Dose: 200 mls/hr Documented by: [id number] Discontinued Medications Sodium Chloride (Nss 1000ml) 1,000 mls @ 999 mls/hr IV .Q1H1M MAHAMED Stop: 01/13/22 09:15 Last Infusion: 01/13/22 10:49 Dose: 0 mls/hr Documented by: [id number] Admin: 01/13/22 09:36 Dose: 999 mls/hr Documented by: [id number] Medical Decision Making Laboratory Data Result diagrams: 01/13/22 08:41 01/13/22 08:41 Lab Results 01/13/22 01/13/22 01/13/22 Range/Units 08:41 08:41 08:41 WBC 11.18 H (4.8-10.8) K/uL RBC 4.58 (4.2-5.4) M/uL Hgb 14.3 (12.0-16.0) g/dL Hct 41.1 (37-47) % MCV 89.7 (80-100) fL MCH 31.2 (25-34) pg MCHC 34.8 (32-36) g/dL RDW Std Deviation 47.9 H (36.4-46.3) fL RDW Coeff of Zbigniew 14.7 H (11.5-14.5) % Plt Count 308 (130-400) K/uL MPV 10.5 H (7.4-10.4) fL Immature Gran % (Auto) 0.4 % Neut % (Auto) 74.6 % Lymph % (Auto) 13.8 % [place] % (Auto) 10.1 % Eos % (Auto) 1.0 % Baso % (Auto) 0.1 % Neut # (Auto) 8.34 H (1.4-6.5) K/uL Lymph # (Auto) 1.54 (1.2-3.4) K/uL [place] # (Auto) 1.13 H (0.11-0.59) K/uL Eos # (Auto) 0.11 (0-0.5) K/uL Baso # (Auto) 0.01 (0-0.2) K/uL Immature Gran # (Auto) 0.05 H (0.00-0.02) K/uL PT 10.4 (9.0-12.0) Seconds INR 1.0 (0.9-1.1) APTT 31.3 H (21.0-31.0) Seconds PTT Ratio 1.2 Sodium (136-145) mmol/L Potassium (3.5-5.1) mmol/L Chloride (98-107) mmol/L Carbon Dioxide (21-32) mmol/L Anion Gap (3-11) BUN (6-23) mg/dl Creatinine (0.6-1.2) mg/dl Est Cr Clr Drug Dosing ml/min Est GFR ( Amer) ml/min Est GFR (Non-Af Amer) ml/min BUN/Creatinine Ratio (10-20) Glucose (70-99(Fasting)) mg/dl Lactate (0.4-2.0) mmol/L Calcium (8.5-10.1) mg/dl Total Bilirubin (0.2-1.0) mg/dl AST (13-39) U/L ALT (7-52) U/L Alkaline Phosphatase (34-104) U/L Total Protein (6.0-8.3) gm/dl Albumin (3.4-5.0) gm/dl Globulin (2.5-4.0) gm/dl Albumin/Globulin Ratio (0.9-2) Procalcitonin < 0.05 (0-0.5) ng/ml SARS-CoV-2, RNA, NAAT (NEGATIVE) 01/13/22 01/13/22 01/13/22 Range/Units 08:41 08:41 10:43 WBC (4.8-10.8) K/uL RBC (4.2-5.4) M/uL Hgb (12.0-16.0) g/dL Hct (37-47) % MCV (80-100) fL MCH (25-34) pg MCHC (32-36) g/dL RDW Std Deviation (36.4-46.3) fL RDW Coeff of Zbigniew (11.5-14.5) % Plt Count (130-400) K/uL MPV (7.4-10.4) fL Immature Gran % (Auto) % Neut % (Auto) % Lymph % (Auto) % [place] % (Auto) % Eos % (Auto) % Baso % (Auto) % Neut # (Auto) (1.4-6.5) K/uL Lymph # (Auto) (1.2-3.4) K/uL [place] # (Auto) (0.11-0.59) K/uL Eos # (Auto) (0-0.5) K/uL Baso # (Auto) (0-0.2) K/uL Immature Gran # (Auto) (0.00-0.02) K/uL PT (9.0-12.0) Seconds INR (0.9-1.1) APTT (21.0-31.0) Seconds PTT Ratio Sodium 130 L (136-145) mmol/L Potassium 4.1 (3.5-5.1) mmol/L Chloride 95 L (98-107) mmol/L Carbon Dioxide 25 (21-32) mmol/L Anion Gap 10 (3-11) BUN 23 (6-23) mg/dl Creatinine 0.96 (0.6-1.2) mg/dl Est Cr Clr Drug Dosing 111.8 ml/min Est GFR ( Amer) 88.2 ml/min Est GFR (Non-Af Amer) 76.1 ml/min BUN/Creatinine Ratio 24.0 H (10-20) Glucose 172 H (70-99(Fasting)) mg/dl Lactate 2.2 H* 1.9 (0.4-2.0) mmol/L Calcium 9.1 (8.5-10.1) mg/dl Total Bilirubin 1.2 H (0.2-1.0) mg/dl AST 21 (13-39) U/L ALT 43 (7-52) U/L Alkaline Phosphatase 83 (34-104) U/L Total Protein 6.9 (6.0-8.3) gm/dl Albumin 3.9 (3.4-5.0) gm/dl Globulin 3.0 (2.5-4.0) gm/dl Albumin/Globulin Ratio 1.3 (0.9-2) Procalcitonin (0-0.5) ng/ml SARS-CoV-2, RNA, NAAT (NEGATIVE) 01/13/22 Range/Units 11:57 WBC (4.8-10.8) K/uL RBC (4.2-5.4) M/uL Hgb (12.0-16.0) g/dL Hct (37-47) % MCV (80-100) fL MCH (25-34) pg MCHC (32-36) g/dL RDW Std Deviation (36.4-46.3) fL RDW Coeff of Zbigniew (11.5-14.5) % Plt Count (130-400) K/uL MPV (7.4-10.4) fL Immature Gran % (Auto) % Neut % (Auto) % Lymph % (Auto) % [place] % (Auto) % Eos % (Auto) % Baso % (Auto) % Neut # (Auto) (1.4-6.5) K/uL Lymph # (Auto) (1.2-3.4) K/uL [place] # (Auto) (0.11-0.59) K/uL Eos # (Auto) (0-0.5) K/uL Baso # (Auto) (0-0.2) K/uL Immature Gran # (Auto) (0.00-0.02) K/uL PT (9.0-12.0) Seconds INR (0.9-1.1) APTT (21.0-31.0) Seconds PTT Ratio Sodium (136-145) mmol/L Potassium (3.5-5.1) mmol/L Chloride (98-107) mmol/L Carbon Dioxide (21-32) mmol/L Anion Gap (3-11) BUN (6-23) mg/dl Creatinine (0.6-1.2) mg/dl Est Cr Clr Drug Dosing ml/min Est GFR ( Amer) ml/min Est GFR (Non-Af Amer) ml/min BUN/Creatinine Ratio (10-20) Glucose (70-99(Fasting)) mg/dl Lactate (0.4-2.0) mmol/L Calcium (8.5-10.1) mg/dl Total Bilirubin (0.2-1.0) mg/dl AST (13-39) U/L ALT (7-52) U/L Alkaline Phosphatase (34-104) U/L Total Protein (6.0-8.3) gm/dl Albumin (3.4-5.0) gm/dl Globulin (2.5-4.0) gm/dl Albumin/Globulin Ratio (0.9-2) Procalcitonin (0-0.5) ng/ml SARS-CoV-2, RNA, NAAT NEGATIVE (NEGATIVE) Imaging Data Radiologist's Impression: Chest X-Ray 01/13/22 08:08 XR chest 1V portable HISTORY: 36 years-old Female SEPSIS acute sepsis COMPARISON: Chest radiograph 12/29/2021 TECHNIQUE: Portable AP view of the chest FINDINGS: Cardiac silhouette is enlarged. Reticular interstitial opacities with patchy bilateral alveolar opacities have mild to moderately improved. No pneumothorax or large pleural effusion. Bones appear grossly intact. IMPRESSION: Mild to moderately improved aeration of the lungs compatible with resolving pneumonia. Continued follow-up recommended. ACT 112: Negative or not required by law. The above report was generated using voice recognition software. It may contain grammatical, syntax or spelling errors. Electronically signed by: Arnoldo Sol M.D. 01/13/2022 8:28 AM ECG Data Indication: + other (sepsis) Rate (beats per minute): 89 Rhythm: + normal sinus ECG Intervals/blocks: + Normal QRS, + Normal FL and + Normal QT-c ECG ST segments: + Normal ST segments [facility] Narrative 0758: The patient was evaluated in room B11. A complete history and physical exam was performed Cardiac monitoring: An order was placed for continuous cardiac monitoring. The monitor shows a rate of 110 with sinus tachycardia rhythm EMR reviewed. Patient was admitted to the hospital from December 29 to January 04, 2022 for COVID-19. During that admission there is no mention of an abscess of the patient's pannus or anterior abdominal wall. Patient was discharged on Decadron and Xarelto. Patient reports she has been taking the anticoagulation. Given the patient is on anticoagulation, will hold off on performing any I&D at this time. 1159: Blood pressure improved with IV fluids. Patient remains tachycardic. Labs show no leukocytosis but does show a lactic acid of 2.2. I did discuss the case with general surgery. Patient was evaluated at the bedside by Dr. Wilson. He recommends antibiotics for the patient and to admit to medicine and states he will plan on performing procedure on her in the next couple days. Discussed the case with Dr. Bah who will evaluate the patient for admission. Impression & Plan Abdominal wall abscess Discharge Plan Visit Data Chief Complaint: Infection, Wound Stated Complaint: INFECTION ON STOMACH ED Provider: Ayad Ha Discharge Problem: Abdominal wall abscess Patient Disposition: Being Evaluated by Hospitalist Discharge Instructions Interventions: ED Discharge Assessment Last Done: 01/13/22 13:42
[2022-01-13 08:57] LABS: Basophils # (auto) 0.01 K/uL (0-0.2); Basophils % (auto) 0.1 %; Eosinophils # (auto) 0.11 K/uL (0-0.5); Hematocrit (blood only) 41.1 % (37-47); Hemoglobin 14.3 g/dL (12.0-16.0); Immature Granulocytes # (auto) 0.05 K/uL (0.00-0.02); Immature Granulocytes % (auto) 0.4 %; Lymphocytes # (auto) 1.54 K/uL (1.2-3.4); Lymphocytes % (auto) 13.8 %; Mean Corpuscular Hemoglobin 31.2 pg (25-34); Mean Corpuscular Hgb Conc 34.8 g/dL (32-36); Mean Corpuscular Volume 89.7 fL (80-100); Mean Platelet Volume 10.5 fL (7.4-10.4); Monocytes # (auto) 1.13 K/uL (0.11-0.59); Monocytes % (auto) 10.1 %; Neutrophils # (auto) 8.34 K/uL (1.4-6.5); Neutrophils % (auto) 74.6 %; Platelet Count 308 K/uL (130-400); RDW Coefficient of Variation 14.7 % (11.5-14.5); RDW Standard Deviation 47.9 fL (36.4-46.3); Red Blood Count 4.58 M/uL (4.2-5.4); White Blood Count 11.18 K/uL (4.8-10.8)
[2022-01-13 09:11] LABS: Partial Thromboplastin Ratio 1.2; Partial Thromboplastin Time 31.3 Seconds (21.0-31.0); Prothrombin Time 10.4 Seconds (9.0-12.0)
[2022-01-13 09:26] LABS: Albumin Globulin Ratio 1.3 (0.9-2); Albumin Level 3.9 gm/dl (3.4-5.0); Bilirubin,Total 1.2 mg/dl (0.2-1.0); Calcium 9.1 mg/dl (8.5-10.1); Creatinine Clr Calc Pharmacy 111.8 ml/min; Est GFR (African American) 88.2 ml/min; Est GFR (Non-African American) 76.1 ml/min; Potassium 4.1 mmol/L (3.5-5.1); Total Protein 6.9 gm/dl (6.0-8.3)
[2022-01-13] MEDS ORDERED: VANCOMYCIN CONSULT ACTIVE PRN (11:42)
[2022-01-13] MEDS ORDERED: VANCOMYCIN HCL 2,750 MG in SODIUM CHLORIDE 0.9% 500 ML IV ONE (11:42)
--- NOTE | 2022-01-13 11:42 | Surgery Consultation ---
Date of Consultation January 13, 2022 Assessment & Plan (1) Abdominal wall abscess: This is a 36y F with a PMH of DM2, morbid obesity, HTN, recent Covid pneumonia, who presents to the [facility] ED on 01/13/22 with complaints of an enlarging abscess on her abdomen. The abscess has become more noticeable over the past 2 weeks while she was hospitalized with Covid. Over the last 3 days it has continued to enlarge in size and become more painful. On exam she has about a 3cm circumferential area of fluctuance consistent with an abscess, with surrounding erythema. Upon arrival to the ER patient was hypotensive 80/60's with tachycardia, both measures have improved with IVF resuscitation. WBC 11. As patient is on Xarelto she may benefit from hospitalization for IV abx and to hold xarelto until we can safely I&D the area of concern. We will plan on I&D in the OR tomorrow by Dr. Wilson. NPO at midnight. Supervising Physician Co-Signing Physician Notes Dr. Inman did see the patient in the emergency room-she states that she has had some what of an infection in this area for over a year and now has become worse. My concern is that it could be MRSA with microabscesses and will likely not heal well with only incision and drainage. I do believe it will require some debridement and possibly even open treatment with a wound VAC I have discussed this with the patient We will hold her Eliquis and proceed tomorrow with incision, drainage and debridement in the operating room possibly under local sedation IV antibiotics for now History of Present Illness History of Present Illness This is a 36y F with a PMH of DM2, morbid obesity, HTN, recent Covid pneumonia, who presents to the [facility] ED on 01/13/22 with complaints of an enlarging abscess on her abdomen. 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 She was recently hospitalized with Covid pneumonia earlier this month when she recognized it enlarging in size. Over the past 3 days it has become even larger and painful, so she came into the ER for further evaluation. She reports having a history of these in the past that have required bedside drainage. She denies any fevers/chills, nausea/vomiting. There is no drainage currently. Of significance she was discharged on Xarelto for prophylaxis against blood clots in her post covid state for 30 days, last took it yesterday evening. Allergies Allergy/AdvReac Type Severity Reaction Status Date / Time doxycycline Allergy Severe hives Verified 01/13/22 10:00 Estrogens Allergy Severe ANAPHYLAXIS Verified 01/13/22 10:00 WITH CONTROL PILLS lithium Allergy Severe ANAPHYLAXIS Verified 01/13/22 10:00 sulfamethoxazole Allergy Severe red skin, Verified 01/13/22 10:00 [From Bactrim] itchy trimethoprim [From Bactrim] Allergy Severe red skin, Verified 01/13/22 10:00 itchy SOAPCLEAN Allergy Mild RASH Uncoded 01/13/22 10:00 (FACIAL CLEANSERS) Home Medications Medication Instructions Recorded Confirmed Type [facility] sugar diagnostic [facility] 03/27/21 01/06/22 Rx Ultra Blue Test Strip) mecobalamin (vitamin B12) 1,000 1,000 mcg PO DAILY #30 tab 04/08/21 01/13/22 Rx mcg chewable tablet lisinopril 10 mg tablet 10 mg PO DAILY #90 tab 05/14/21 01/13/22 Rx fluconazole 150 mg tablet 150 mg PO .weekly 180 Days #24 tab 08/26/21 01/13/22 Rx (Diflucan) triamterene 37.5 1 tab PO BID #60 tab 10/03/21 01/13/22 Rx mg-hydrochlorothiazide 25 mg tablet blood-glucose meter ([facility] ea 10/09/21 01/06/22 History Ultra2 Meter) famotidine 20 mg tablet 20 mg PO BID #180 tab 11/19/21 01/13/22 Rx simvastatin 20 mg tablet 20 mg PO DAILY #90 tab 11/19/21 01/13/22 Rx pen needle, diabetic 31 gauge x #200 ea 12/11/21 01/06/22 Rx 1/4" (1st Tier Unifine Pentips) lancets 30 gauge ([facility] ea 12/31/21 01/06/22 Rx Plus Lancet) rivaroxaban 10 mg tablet (Xarelto) 10 mg PO DAILY 30 Days #30 tab 01/04/22 01/13/22 Rx amlodipine 5 mg tablet (Norvasc) 5 mg PO HS 01/13/22 01/13/22 History cetirizine 10 mg tablet 10 mg PO HS 01/13/22 01/13/22 History insulin degludec 200 unit/mL (3 74 unit SUBCUT DAILY@0600 01/13/22 01/13/22 History mL) subcutaneous pen (Tresiba FlexTouch U-200 insulin) insulin lispro-aabc 100 unit/mL 4 unit SUBCUT TIDM 01/13/22 01/13/22 History subcutaneous pen (Lyumjev KwikPen U-100 Insulin) medroxyprogesterone 2.5 mg tablet 2.5 mg PO DAILY 01/13/22 01/13/22 History (Provera) semaglutide 1 mg/dose (4 mg/3 mL) 1 mg SUBCUT WK 01/13/22 01/13/22 History subcutaneous pen injector (Ozempic) Patient History Medical History Abscess Acid reflux Anxiety and depression Diabetes mellitus Fatty liver History of breast abscess Hyperlipidemia Hypertension Morbid obesity Seasonal allergies Surgical History History of adenoidectomy Hx of tonsillectomy Family History (Updated 01/13/22 @ 13:06 by Jennifer Bah MD) Grandmother (Paternal) Breast cancer Grandmother (Maternal) Colorectal cancer Diabetes Mother Diabetes Gallbladder problem Father , from suicide age 58 Diabetes Heart disease Coronary heart disease, Onset Age: 57 Father had CABG at age 57 Depression Sister Gallbladder problem Other Family history non-contributory Denies family history of Ovarian cancer Prostate cancer Social History (Updated 01/13/22 @ 13:07 by Jennifer Bah MD) Smoking Status: Never smoker Second Hand Exposure: No; Hx Alcohol Use: Yes Alcohol type: wine Alcohol Intake Frequency: Monthly or Less Hx Substance Use: No Preferred Language: [place] Communication Ability: Effective Visual Impairment: No Limitations Hearing Ability: Normal Block Captain Required: No Beliefs That Will Affect Care: None marital status: Single Current Living Situation: Family Current Living Situation Comment: sister current occupational status: disabled Feels Safe at Home: Yes Childhood Exposure to Second-Hand Smoke: Yes caffeine: Yes Dental Care, Regularly: Yes Physical Activity Frequency: 1-2 Times per Week Seatbelt Use: always Sunscreen Use: Yes Assistive Devices: Glasses Review of Systems Constitutional: no fever and no chills Respiratory: + dyspnea (improving as she recovers from covid) Gastrointestinal: no nausea and no vomiting painful lump on left abdomen, red, non draining Physical Exam Physical Exam: awake, alert Constitutional: well developed and + morbidly obese; no acute distress Respiratory: breathing well on room air Gastrointestinal (Abdomen): + fluctuant mass on L lower abdomen with surrounding erythema, no drainage Results & Data ([facility]) Vital Signs (Past 12 Hours) Vital Signs Temp Pulse Pulse Resp BP BP Pulse Ox 01/13/22 11:01 106 H 22 114/80 96 01/13/22 09:34 104 H 20 97 01/13/22 07:54 36.8 C 100 H 18 86/64 L 97 PG Care Time/CCT Total # of Minutes Spent Total Time Spent with Patient: Total time spent is greater than 50% in coordination of care (as documented) at patient's floor/unit and/or counseling patient: Coding Level of Care Code 30543 Initial Inpt Care Lvl 1 Diagnoses Abdominal wall abscess L02.211
--- NOTE | 2022-01-13 12:20 | History & Physical Report ---
Date of Service January 13, 2022 Assessment & Plan (1) Sepsis: Plan: Presented with hypotension, tachycardia, elevated lactate, and mild leukocytosis at 11, with source being abdominal wall abscess Given 1 L normal saline in the ER and blood pressure improved, lactate returned normal -Admit to medical floor with telemetry for close monitoring of blood pressure -Was given 1 dose of IV vancomycin in the ER-continue for now -Await surgical incision and drainage-plan for tomorrow as took Xarelto on the evening of 01/12, make n.p.o. after midnight-appreciate general surgery consultation -Follow blood cultures -Check wound culture with surgical incision and drainage -Give 1 more liter normal saline at 100 mL/h -Hold home amlodipine and Dyazide as well as lisinopril until blood pressures improved -Follow CBC, CMP, CRP in the morning (2) Abdominal wall abscess: Plan: As above With a history of coagulase-negative Staphylococcus in the past, no history of MRSA Awaiting incision and drainage (3) Hyponatremia: Plan: Mildly low at 130, asymptomatic Likely secondary to hypovolemia from sepsis as well as HCTZ use Holding home Dyazide Giving normal saline Follow BMP in the morning (4) Hypertension: Plan: With hypotension on arrival as above Holding home antihypertensives and can restart when blood pressures improve (5) Obesity: Plan: BMI 64.7 Holding home Ozempic Should consider bariatric surgery as an outpatient (6) Diabetes mellitus: Plan: Fairly well controlled with hemoglobin A1c 6.6% earlier this month She already took her Tresiba this morning, start Lantus 30 units SQ twice daily for tomorrow morning NovoLog supplemental insulin with meals and at bedtime Hold home Ozempic, Tresiba, insulin lispro (7) Pneumonia due to COVID-19 virus: Plan: Recent admission for such and discharged on 01/04 Still with evidence of infiltrates on chest x-ray but improved from previous She is not requiring oxygen and is overall much improved since her hospitalization for Covid-19 Needs follow-up chest x-ray in 3-4 more weeks to ensure resolution (8) Acid reflux: Plan: Continue home Pepcid (9) Hyperlipidemia: Plan: Continue home statin Plan: DVT prophylaxis-holding home Xarelto 10 mg daily for surgical drainage for tomorrow, then restart after that to complete 35 days post discharge from COVID- 19 admission Disposition-admit to medical floor with telemetry Full code Her healthcare power of estate planning attorney would be her sister in the event she is not able to make decisions for herself History of Present Illness Chief Complaint: Skin abscess Primary Care Provider: Oliver Sheikh MD This patient is a 36-year-old female with a history of morbid obesity with BMI of 64, recent Covid-19 pneumonia requiring hospitalization, HTN, DM 2, GERD, hyperlipidemia, who presents to the ER with worsening infection at a site in her pannus on the left lower side over the last week or so. She has not had any fevers or drainage from the site, however it is tender to the touch. She has a history of skin abscesses in the past but no history of MRSA. She does have a history of coagulase-negative Staphylococcus growing from prior abdominal wound. She denies any chest pains or shortness of breath except some mild dyspnea on exertion since discharge from the hospital with Covid. Has had a mild residual cough but overall improving from her Covid-19. Denies any abdominal pains or constipation, no diarrhea, no nausea/vomiting. Did feel slightly lightheaded today. She has continued to take her antihypertensives and is not checking her blood pressure at home. In the ER, she was found to be hypotensive and tachycardic, but afebrile. She had a mildly elevated WBC count at 11, was hyponatremic, and had an elevated lactate of 2.2. She was given 1 L of normal saline and a dose of IV vancomycin and will be admitted for surgical consultation and further treatment for sepsis with abscess as a source. Of note, she has been taking low-dose Xarelto 10 mg daily since her discharge for Covid-19 for VTE prophylaxis and her last dose was at 9 PM on 01/12. Allergies Allergy/AdvReac Type Severity Reaction Status Date / Time doxycycline Allergy Severe hives Verified 01/13/22 10:00 Estrogens Allergy Severe ANAPHYLAXIS Verified 01/13/22 10:00 WITH CONTROL PILLS lithium Allergy Severe ANAPHYLAXIS Verified 01/13/22 10:00 sulfamethoxazole Allergy Severe red skin, Verified 01/13/22 10:00 [From Bactrim] itchy trimethoprim [From Bactrim] Allergy Severe red skin, Verified 01/13/22 10:00 itchy SOAPCLEAN Allergy Mild RASH Uncoded 01/13/22 10:00 (FACIAL CLEANSERS) Home Medications Medication Instructions Recorded Confirmed Type blood sugar diagnostic (OneTouch #300 ea 03/27/21 01/06/22 Rx Ultra Blue Test Strip) mecobalamin (vitamin B12) 1,000 1,000 mcg PO DAILY #30 tab 04/08/21 01/13/22 Rx mcg chewable tablet lisinopril 10 mg tablet 10 mg PO DAILY #90 tab 05/14/21 01/13/22 Rx fluconazole 150 mg tablet 150 mg PO .weekly 180 Days #24 tab 08/26/21 01/13/22 Rx (Diflucan) triamterene 37.5 1 tab PO BID #60 tab 10/03/21 01/13/22 Rx mg-hydrochlorothiazide 25 mg tablet blood-glucose meter (Oneuch ea 10/09/21 01/06/22 History Ultra2 Meter) famotidine 20 mg tablet 20 mg PO BID #180 tab 11/19/21 01/13/22 Rx simvastatin 20 mg tablet 20 mg PO DAILY #90 tab 11/19/21 01/13/22 Rx pen needle, diabetic 31 gauge x #200 ea 12/11/21 01/06/22 Rx 1/4" (1st Tier Unifine Pentips) lancets 30 gauge (OneTouch Delica #300 ea 12/31/21 01/06/22 Rx Plus Lancet) rivaroxaban 10 mg tablet (Xarelto) 10 mg PO DAILY 30 Days #30 tab 01/04/22 01/13/22 Rx amlodipine 5 mg tablet (Norvasc) 5 mg PO HS 01/13/22 01/13/22 History cetirizine 10 mg tablet 10 mg PO HS 01/13/22 01/13/22 History insulin degludec 200 unit/mL (3 74 unit SUBCUT DAILY@0600 01/13/22 01/13/22 History mL) subcutaneous pen (Tresiba FlexTouch U-200 insulin) insulin lispro-aabc 100 unit/mL 4 unit SUBCUT TIDM 01/13/22 01/13/22 History subcutaneous pen (Lyumjev KwikPen U-100 Insulin) medroxyprogesterone 2.5 mg tablet 2.5 mg PO DAILY 01/13/22 01/13/22 History (Provera) semaglutide 1 mg/dose (4 mg/3 mL) 1 mg SUBCUT WK 01/13/22 01/13/22 History subcutaneous pen injector (Ozempic) Past Med/Surg History Medical History Abscess Acid reflux Anxiety and depression Diabetes mellitus Fatty liver History of breast abscess Hyperlipidemia Hypertension Morbid obesity Seasonal allergies Surgical History History of adenoidectomy Hx of tonsillectomy Family History (Updated 01/13/22 @ 13:06 by Jennifer Bah MD) Grandmother (Paternal) Breast cancer Grandmother (Maternal) Colorectal cancer Diabetes Mother Diabetes Gallbladder problem Father , from suicide age 58 Diabetes Heart disease Coronary heart disease, Onset Age: 57 Father had CABG at age 57 Depression Sister Gallbladder problem Other Family history non-contributory Denies family history of Ovarian cancer Prostate cancer Social History (Updated 01/13/22 @ 13:07 by Jennifer Bah MD) Smoking Status: Never smoker Second Hand Exposure: No; Hx Alcohol Use: Yes Alcohol type: wine Alcohol Intake Frequency: Monthly or Less Hx Substance Use: No Preferred Language: Georgian Communication Ability: Effective Visual Impairment: No Limitations Hearing Ability: Normal Paper Coater Required: No Beliefs That Will Affect Care: None marital status: Single Current Living Situation: Family Current Living Situation Comment: sister current occupational status: disabled Feels Safe at Home: Yes Childhood Exposure to Second-Hand Smoke: Yes caffeine: Yes Dental Care, Regularly: Yes Physical Activity Frequency: 1-2 Times per Week Seatbelt Use: always Sunscreen Use: Yes Assistive Devices: Glasses Review of Systems Review of Systems: All systems reviewed & are unremarkable except as noted in HPI & below Physical Exam Constitutional: WD/WN, vitals as above + morbidly obese Eyes: PERRL, conjunctivae normal, anicteric sclerae ENMT: external ear and nose normal, oropharynx normal Neck: trachea midline, no thyromegaly Respiratory: normal respiratory effort, lungs clear to auscultation Auscultation: + diminished lung sounds (throughout) Cardiovascular: RRR, no murmur, no edema Chest (Breasts): Chest: normal inspection of chest Gastrointestinal (Abdomen): normal bowel sounds, soft, nontender, no hepatosplenomegaly Musculoskeletal: Extremities: extremities normal to inspection; no cyanosis and no clubbing Skin: Left lower abdomen with large fluctuant mass that is erythematous, measuring approximately 4 cm in diameter, tender to the touch No other areas of abscess or cellulitis elsewhere on the body, mild intertrigo under right breast Bilateral plantar surfaces of feet with thick callus and plantar warts Neurologic: moves all extremities and awake; no focal motor deficits Psychiatric: A+Ox3, euthymic affect Genitourinary: normal external appearance Lymphatic: no lymphedema Results & Data Results & Data ([facility] [place]) Vital Signs (Past 12 Hours) Vital Signs Temp Pulse Pulse Resp BP BP Pulse Ox 01/13/22 11:01 106 H 22 114/80 96 01/13/22 09:34 104 H 20 97 01/13/22 07:54 36.8 C 100 H 18 86/64 L 97 Laboratory Results 01/13/22 01/13/22 01/13/22 Range/Units 11:57 10:43 08:41 WBC (4.8-10.8) K/uL RBC (4.2-5.4) M/uL Hgb (12.0-16.0) g/dL Hct (37-47) % MCV (80-100) fL MCH (25-34) pg MCHC (32-36) g/dL RDW Std Deviation (36.4-46.3) fL RDW Coeff of Zbigniew (11.5-14.5) % Plt Count (130-400) K/uL MPV (7.4-10.4) fL Immature Gran % (Auto) % Neut % (Auto) % Lymph % (Auto) % Benton % (Auto) % Eos % (Auto) % Baso % (Auto) % Neut # (Auto) (1.4-6.5) K/uL Lymph # (Auto) (1.2-3.4) K/uL Benton # (Auto) (0.11-0.59) K/uL Eos # (Auto) (0-0.5) K/uL Baso # (Auto) (0-0.2) K/uL Immature Gran # (Auto) (0.00-0.02) K/uL PT (9.0-12.0) Seconds INR (0.9-1.1) APTT (21.0-31.0) Seconds PTT Ratio Sodium (136-145) mmol/L Potassium (3.5-5.1) mmol/L Chloride (98-107) mmol/L Carbon Dioxide (21-32) mmol/L Anion Gap (3-11) BUN (6-23) mg/dl Creatinine (0.6-1.2) mg/dl Est Cr Clr Drug Dosing ml/min Est GFR ( Amer) ml/min Est GFR (Non-Af Amer) ml/min BUN/Creatinine Ratio (10-20) Glucose (70-99(Fasting)) mg/dl Lactate 1.9 2.2 H* (0.4-2.0) mmol/L Calcium (8.5-10.1) mg/dl Total Bilirubin (0.2-1.0) mg/dl AST (13-39) U/L ALT (7-52) U/L Alkaline Phosphatase (34-104) U/L Total Protein (6.0-8.3) gm/dl Albumin (3.4-5.0) gm/dl Globulin (2.5-4.0) gm/dl Albumin/Globulin Ratio (0.9-2) Procalcitonin (0-0.5) ng/ml SARS-CoV-2, RNA, NAAT Pending 01/13/22 01/13/22 01/13/22 Range/Units 08:41 08:41 08:41 WBC 11.18 H (4.8-10.8) K/uL RBC 4.58 (4.2-5.4) M/uL Hgb 14.3 (12.0-16.0) g/dL Hct 41.1 (37-47) % MCV 89.7 (80-100) fL MCH 31.2 (25-34) pg MCHC 34.8 (32-36) g/dL RDW Std Deviation 47.9 H (36.4-46.3) fL RDW Coeff of Zbigniew 14.7 H (11.5-14.5) % Plt Count 308 (130-400) K/uL MPV 10.5 H (7.4-10.4) fL Immature Gran % (Auto) 0.4 % Neut % (Auto) 74.6 % Lymph % (Auto) 13.8 % Benton % (Auto) 10.1 % Eos % (Auto) 1.0 % Baso % (Auto) 0.1 % Neut # (Auto) 8.34 H (1.4-6.5) K/uL Lymph # (Auto) 1.54 (1.2-3.4) K/uL Benton # (Auto) 1.13 H (0.11-0.59) K/uL Eos # (Auto) 0.11 (0-0.5) K/uL Baso # (Auto) 0.01 (0-0.2) K/uL Immature Gran # (Auto) 0.05 H (0.00-0.02) K/uL PT 10.4 (9.0-12.0) Seconds INR 1.0 (0.9-1.1) APTT 31.3 H (21.0-31.0) Seconds PTT Ratio 1.2 Sodium 130 L (136-145) mmol/L Potassium 4.1 (3.5-5.1) mmol/L Chloride 95 L (98-107) mmol/L Carbon Dioxide 25 (21-32) mmol/L Anion Gap 10 (3-11) BUN 23 (6-23) mg/dl Creatinine 0.96 (0.6-1.2) mg/dl Est Cr Clr Drug Dosing 111.8 ml/min Est GFR ( Amer) 88.2 ml/min Est GFR (Non-Af Amer) 76.1 ml/min BUN/Creatinine Ratio 24.0 H (10-20) Glucose 172 H (70-99(Fasting)) mg/dl Lactate (0.4-2.0) mmol/L Calcium 9.1 (8.5-10.1) mg/dl Total Bilirubin 1.2 H (0.2-1.0) mg/dl AST 21 (13-39) U/L ALT 43 (7-52) U/L Alkaline Phosphatase 83 (34-104) U/L Total Protein 6.9 (6.0-8.3) gm/dl Albumin 3.9 (3.4-5.0) gm/dl Globulin 3.0 (2.5-4.0) gm/dl Albumin/Globulin Ratio 1.3 (0.9-2) Procalcitonin (0-0.5) ng/ml SARS-CoV-2, RNA, NAAT 01/13/22 Range/Units 08:41 WBC (4.8-10.8) K/uL RBC (4.2-5.4) M/uL Hgb (12.0-16.0) g/dL Hct (37-47) % MCV (80-100) fL MCH (25-34) pg MCHC (32-36) g/dL RDW Std Deviation (36.4-46.3) fL RDW Coeff of Zbigniew (11.5-14.5) % Plt Count (130-400) K/uL MPV (7.4-10.4) fL Immature Gran % (Auto) % Neut % (Auto) % Lymph % (Auto) % Benton % (Auto) % Eos % (Auto) % Baso % (Auto) % Neut # (Auto) (1.4-6.5) K/uL Lymph # (Auto) (1.2-3.4) K/uL Benton # (Auto) (0.11-0.59) K/uL Eos # (Auto) (0-0.5) K/uL Baso # (Auto) (0-0.2) K/uL Immature Gran # (Auto) (0.00-0.02) K/uL PT (9.0-12.0) Seconds INR (0.9-1.1) APTT (21.0-31.0) Seconds PTT Ratio Sodium (136-145) mmol/L Potassium (3.5-5.1) mmol/L Chloride (98-107) mmol/L Carbon Dioxide (21-32) mmol/L Anion Gap (3-11) BUN (6-23) mg/dl Creatinine (0.6-1.2) mg/dl Est Cr Clr Drug Dosing ml/min Est GFR ( Amer) ml/min Est GFR (Non-Af Amer) ml/min BUN/Creatinine Ratio (10-20) Glucose (70-99(Fasting)) mg/dl Lactate (0.4-2.0) mmol/L Calcium (8.5-10.1) mg/dl Total Bilirubin (0.2-1.0) mg/dl AST (13-39) U/L ALT (7-52) U/L Alkaline Phosphatase (34-104) U/L Total Protein (6.0-8.3) gm/dl Albumin (3.4-5.0) gm/dl Globulin (2.5-4.0) gm/dl Albumin/Globulin Ratio (0.9-2) Procalcitonin < 0.05 (0-0.5) ng/ml SARS-CoV-2, RNA, NAAT Diagnostic Findings Chest X-Ray 01/13/22 08:08 XR chest 1V portable HISTORY: 36 years-old Female SEPSIS acute sepsis COMPARISON: Chest radiograph 12/29/2021 TECHNIQUE: Portable AP view of the chest FINDINGS: Cardiac silhouette is enlarged. Reticular interstitial opacities with patchy bilateral alveolar opacities have mild to moderately improved. No pneumothorax or large pleural effusion. Bones appear grossly intact. IMPRESSION: Mild to moderately improved aeration of the lungs compatible with resolving pneumonia. Continued follow-up recommended. ACT 112: Negative or not required by law. The above report was generated using voice recognition software. It may contain grammatical, syntax or spelling errors. Electronically signed by: Arnoldo Sol M.D. 01/13/2022 8:28 AM ECG Additional Comments: ECG on 01/13/2022 at 9:30 AM with normal sinus rhythm, rate 89, no ischemic changes Code Status & VTE Plan Code Status Full code VTE Prophylaxis Plan VTE Prophylaxis will be ordered: Yes PG Care Time/CCT Total # of Minutes Spent Total Time Spent with Patient: Total time spent is greater than 50% in coordination of care (as documented) at patient's floor/unit and/or counseling patient: Coding Level of Care Code 93596 Initial Inpt Care Lvl 3 Diagnoses Abdominal wall abscess L02.211 Hypertension I10 Obesity E66.9 Diabetes mellitus E11.9 Hyperlipidemia E78.5 Acid reflux K21.9 Sepsis A41.9 Hyponatremia E87.1 Pneumonia due to COVID-19 virus U07.1; J12.82
[2022-01-13 13:15] LABS: Appearance Urine Clear (Clear); Bilirubin Urine Negative (Negative); Blood Urine Negative (Negative); Color Urine Yellow; Glucose Urine UA Negative (Negative); Ketones Urine Negative (Negative); Leukocyte Esterase Urine Negative (Negative); Nitrite Urine Negative (Negative); Protein Urine Negative (Negative); Specific Gravity Urine 1.011 (1.000-1.030); Urobilinogen Urine Negative (Negative); pH Urine 6.5 (4.5-7.5)
[2022-01-13] MEDS ORDERED: GLUCOSE 10 TABS/TUBE PO PRN (13:35)
[2022-01-13] MEDS ORDERED: GLUCOSE 40% GEL 15 GM TUBE PO PRN (13:35)
[2022-01-13] MEDS ORDERED: SIMVASTATIN 20 MG TAB PO SCH (13:35)
[2022-01-13] MEDS ORDERED: POLYETHYLENE (MIRALAX) 17 GM PACK PO PRN (13:35)
[2022-01-13] MEDS ORDERED: GLUCAGON FOR INJ 1 MG VIAL SQ PRN (13:35)
[2022-01-13] MEDS ORDERED: ONDANSETRON INJ 2 MG/ML 2 ML VIAL IV PRN (13:35)
[2022-01-13] MEDS ORDERED: CARBOHYDRATES FOR HYPOGLYCEMIA PO PRN (13:35)
[2022-01-13] MEDS ORDERED: DEXTROSE 50% 50 ML SYRINGE IV PRN (13:35)
--- NOTE | 2022-01-13 13:51 | Electrocardiogram Report ---
Test Reason : Blood Pressure : / mmHG Vent. Rate : 089 BPM Atrial Rate : 089 BPM P-R Int : 130 ms QRS Dur : 084 ms QT Int : 382 ms P-R-T Axes : 025 003 033 degrees QTc Int : 464 ms Normal sinus rhythm Normal ECG When compared with ECG of 29-DEC-2021 21:37, No significant change was found Confirmed by Oliver Samson ([id number]) on 01/13/2022 1:50:56 PM Referred By: REFERRED SELF Confirmed By:Chapincito Samson
[2022-01-13] MEDS: CYANOCOBALAMIN (B-12) 500 MCG TABLET PO SCH (16:01)
[2022-01-13] MEDS: FAMOTIDINE 20 MG TAB PO SCH ×2 (16:01→20:52)
[2022-01-13] MEDS: INSULIN ASPART PER UNIT SC SCH ×2 (18:24→20:48)
[2022-01-13] MEDS: ACETAMINOPHEN 325 MG TAB PO PRN (18:39)
[2022-01-13] MEDS: CETIRIZINE HCL 10 MG TABLET PO SCH (20:52)
[2022-01-13] MEDS ORDERED: FAMOTIDINE 20 MG TAB PO SCH (21:00)
[2022-01-13] MEDS: DAPTOmycin 525 MG in SYRINGE 0 ML IV SCH (23:31)
[2022-01-14] MEDS: INSULIN ASPART PER UNIT SC SCH ×4 (06:03→20:42)
[2022-01-14] MEDS: FAMOTIDINE 20 MG TAB PO SCH ×2 (07:31→20:41)
[2022-01-14] MEDS: CYANOCOBALAMIN (B-12) 500 MCG TABLET PO SCH (07:31)
[2022-01-14 07:39] LABS: Basophils # (auto) 0.01 K/uL (0-0.2); Basophils % (auto) 0.2 %; Eosinophils % (auto) 1.9 %; Hematocrit (blood only) 35.2 % (37-47); Immature Granulocytes # (auto) 0.02 K/uL (0.00-0.02); Immature Granulocytes % (auto) 0.4 %; Lymphocytes # (auto) 1.26 K/uL (1.2-3.4); Lymphocytes % (auto) 24.1 %; Mean Corpuscular Hemoglobin 30.9 pg (25-34); Mean Corpuscular Hgb Conc 34.1 g/dL (32-36); Mean Corpuscular Volume 90.7 fL (80-100); Mean Platelet Volume 10.4 fL (7.4-10.4); Monocytes # (auto) 0.62 K/uL (0.11-0.59); Monocytes % (auto) 11.9 %; Neutrophils # (auto) 3.21 K/uL (1.4-6.5); Neutrophils % (auto) 61.5 %; Platelet Count 218 K/uL (130-400); RDW Coefficient of Variation 14.6 % (11.5-14.5); RDW Standard Deviation 48.6 fL (36.4-46.3); Red Blood Count 3.88 M/uL (4.2-5.4); White Blood Count 5.22 K/uL (4.8-10.8)
[2022-01-14 08:18] LABS: Albumin Globulin Ratio 1.2 (0.9-2); Albumin Level 3.2 gm/dl (3.4-5.0); BUN Creatinine Ratio 24.2 (10-20); Bilirubin,Total 0.8 mg/dl (0.2-1.0); C Reactive Protein 2.82 mg/dl (0-0.5); Calcium 8.1 mg/dl (8.5-10.1); Creatinine Clr Calc Pharmacy 167.5 ml/min; Est GFR (African American) 131.7 ml/min; Est GFR (Non-African American) 113.6 ml/min; Globulin 2.6 gm/dl (2.5-4.0); Total Protein 5.8 gm/dl (6.0-8.3)
--- NOTE | 2022-01-14 08:23 | Hospitalist Progress Note ---
Date of Service January 14, 2022 Assessment & Plan (1) Sepsis: Plan: Presented with hypotension, tachycardia, elevated lactate, and mild leukocytosis at 11, with source being abdominal wall abscess Given 1 L normal saline in the ER and blood pressure improved, lactate returned normal Vanco in ER, continues on Daptomycin IV WBC 11.1k --> 5.2k Afebrile General surgery consulted NPO for OR today for I&D of abdominal wall abscess with Dr Wilson -- xarelto on hold (took evening 01/12), would resume for 35 days post covid-19 discharge -- Check wound cx with I&D Blood cultures pending Continue NS @ 80cc/hr while awaiting OR/NPO Continue to hold amlodipine/Dyazide/lisinopril for now, BP stable 121/77. Resume when able for amlodipine, would wait until AM to resume Dyazide/RICARDA to ensure stable kidney function on AM labs Pain control, antiemetics prn Continue to monitor (2) Abdominal wall abscess: Plan: As above With a history of coagulase-negative Staphylococcus in the past, no history of MRSA Awaiting incision and drainage (3) Hyponatremia: Plan: Mildly low at 130, asymptomatic Likely secondary to hypovolemia from sepsis as well as HCTZ use Holding home Dyazide Giving normal saline, repeat 132. Will give 1 further L NSS @ 80cc/hr while NPO awaiting I&D as above Follow BMP in the morning (4) Hypertension: Plan: With hypotension on arrival as above, BP improved and currently 121/77 Holding home antihypertensives and can restart when blood pressures improve (5) Obesity: Plan: BMI 64.7 Holding home Ozempic Should consider bariatric surgery as an outpatient (6) Diabetes mellitus: Plan: Fairly well controlled with hemoglobin A1c 6.6% earlier this month She already took her Tresiba this morning, start Lantus 30 units SQ twice daily for tomorrow morning NovoLog supplemental insulin with meals and at bedtime Hold home Ozempic, Tresiba, insulin lispro (7) Pneumonia due to COVID-19 virus: Plan: Recent admission for such and discharged on 01/04 Still with evidence of infiltrates on chest x-ray but improved from previous She is not requiring oxygen and is overall much improved since her hospitalization for Covid-19 Needs follow-up chest x-ray in 3-4 more weeks to ensure resolution On room air (8) Acid reflux: Plan: Continue home Pepcid (9) Hyperlipidemia: Plan: Continue home statin Plan: DVT prophylaxis-holding home Xarelto 10 mg daily for surgical drainage for tomorrow, then restart after that to complete 35 days post discharge from COVID- 19 admission Full code Her healthcare power of workers compensation attorney would be her sister in the event she is not able to make decisions for herself Admission and Anticipated Discharge Date Admission Date: January 13, 2022 Subjective patient evaluated this morning awaiting OR, they are currently waiting to take her down pain much improved since abscess started draining -- she notes current abscess present for about a year, had been following with PCP and dermatology, only using topical and no need for I&D at that time. Since d/c from [facility] (and receiving steroids) abscess worsened and presented with sepsis HR improved, no chest pain, fever, chills, shortness of breath, nausea, vomiting or dysuria. Discussed prior skin issues -- she notes she typically gets these under breast folds, in vaginal area, and under belly. Typically self resolve but has had two previous drained in the ER on prior occasions. Discussed possible f/u dermatology at d/c for discussions of hydradenitis and treatment for prevention of recurrent issues, as they have been ongoing since around age 13. Questions/concerns addressed at this time. Review of Systems Review of Systems: All systems reviewed & are unremarkable except as noted in HPI & below Physical Exam Constitutional: WD/WN, vitals as above + morbidly obese Eyes: PERRL, conjunctivae normal, anicteric sclerae ENMT: external ear and nose normal, oropharynx normal Neck: trachea midline, no thyromegaly Respiratory: normal respiratory effort, lungs clear to auscultation Auscultation: + diminished lung sounds (throughout) Cardiovascular: RRR, no murmur, no edema Chest (Breasts): Chest: normal inspection of chest Gastrointestinal (Abdomen): normal bowel sounds, soft, nontender, no hepatosplenomegaly Musculoskeletal: Extremities: extremities normal to inspection; no cyanosis and no clubbing Skin: +Abscess (fluctuant) LLQ abdominal wall/groin fold, four openings noted, no expressible drainage, minimally tender to palpation/erythema noted but stated to be improved. Neurologic: moves all extremities and awake; no focal motor deficits Psychiatric: A+Ox3, euthymic affect Genitourinary: normal external appearance Lymphatic: no lymphedema Results & Data Results & Data ([facility]) Vital Signs (Past 12 Hours) Vital Signs Temp Pulse Pulse Resp BP Pulse Ox 01/14/22 07:13 37 C 98 H 18 121/77 92 01/14/22 04:12 36.9 C 95 H 20 111/75 90 01/14/22 00:49 95 H 01/13/22 23:45 36.8 C 95 H 20 119/76 96 Laboratory Results 01/14/22 01/14/22 01/14/22 Range/Units 07:03 07:03 06:02 WBC 5.22 (4.8-10.8) K/uL RBC 3.88 L (4.2-5.4) M/uL Hgb 12.0 (12.0-16.0) g/dL Hct 35.2 L (37-47) % MCV 90.7 (80-100) fL MCH 30.9 (25-34) pg MCHC 34.1 (32-36) g/dL RDW Std Deviation 48.6 H (36.4-46.3) fL RDW Coeff of Zbigniew 14.6 H (11.5-14.5) % Plt Count 218 (130-400) K/uL MPV 10.4 (7.4-10.4) fL Immature Gran % (Auto) 0.4 % Neut % (Auto) 61.5 % Lymph % (Auto) 24.1 % [place] % (Auto) 11.9 % Eos % (Auto) 1.9 % Baso % (Auto) 0.2 % Neut # (Auto) 3.21 (1.4-6.5) K/uL Lymph # (Auto) 1.26 (1.2-3.4) K/uL [place] # (Auto) 0.62 H (0.11-0.59) K/uL Eos # (Auto) 0.10 (0-0.5) K/uL Baso # (Auto) 0.01 (0-0.2) K/uL Immature Gran # (Auto) 0.02 (0.00-0.02) K/uL Sodium 132 L (136-145) mmol/L Potassium (3.5-5.1) mmol/L Chloride 101 (98-107) mmol/L Carbon Dioxide 23 (21-32) mmol/L Anion Gap 8 (3-11) BUN 16 (6-23) mg/dl Creatinine 0.66 D (0.6-1.2) mg/dl Est Cr Clr Drug Dosing 167.5 ml/min Est GFR ( Amer) 131.7 ml/min Est GFR (Non-Af Amer) 113.6 ml/min BUN/Creatinine Ratio 24.2 H (10-20) Glucose 122 H (70-99(Fasting)) mg/dl POC Glucose 133 H (70-99) mg/dl Lactate (0.4-2.0) mmol/L Calcium 8.1 L (8.5-10.1) mg/dl Total Bilirubin 0.8 (0.2-1.0) mg/dl AST (13-39) U/L ALT 35 (7-52) U/L Alkaline Phosphatase 65 (34-104) U/L C-Reactive Protein 2.82 H (0-0.5) mg/dl Total Protein 5.8 L (6.0-8.3) gm/dl Albumin 3.2 L (3.4-5.0) gm/dl Globulin 2.6 (2.5-4.0) gm/dl Albumin/Globulin Ratio 1.2 (0.9-2) Procalcitonin (0-0.5) ng/ml Urine Color Urine Appearance (Clear) Urine pH (4.5-7.5) Ur Specific [place] (1.000-1.030) Urine Protein (Negative) Urine Glucose (UA) (Negative) Urine Ketones (Negative) Urine Blood (Negative) Urine Nitrite (Negative) Urine Bilirubin (Negative) Urine Urobilinogen (Negative) Ur Leukocyte Esterase (Negative) SARS-CoV-2, RNA, NAAT (NEGATIVE) 01/14/22 01/13/22 01/13/22 Range/Units 00:11 20:15 18:14 WBC (4.8-10.8) K/uL RBC (4.2-5.4) M/uL Hgb (12.0-16.0) g/dL Hct (37-47) % MCV (80-100) fL MCH (25-34) pg MCHC (32-36) g/dL RDW Std Deviation (36.4-46.3) fL RDW Coeff of Zbigniew (11.5-14.5) % Plt Count (130-400) K/uL MPV (7.4-10.4) fL Immature Gran % (Auto) % Neut % (Auto) % Lymph % (Auto) % [place] % (Auto) % Eos % (Auto) % Baso % (Auto) % Neut # (Auto) (1.4-6.5) K/uL Lymph # (Auto) (1.2-3.4) K/uL [place] # (Auto) (0.11-0.59) K/uL Eos # (Auto) (0-0.5) K/uL Baso # (Auto) (0-0.2) K/uL Immature Gran # (Auto) (0.00-0.02) K/uL Sodium (136-145) mmol/L Potassium (3.5-5.1) mmol/L Chloride (98-107) mmol/L Carbon Dioxide (21-32) mmol/L Anion Gap (3-11) BUN (6-23) mg/dl Creatinine (0.6-1.2) mg/dl Est Cr Clr Drug Dosing ml/min Est GFR ( Amer) ml/min Est GFR (Non-Af Amer) ml/min BUN/Creatinine Ratio (10-20) Glucose (70-99(Fasting)) mg/dl POC Glucose 146 H 147 H 157 H (70-99) mg/dl Lactate (0.4-2.0) mmol/L Calcium (8.5-10.1) mg/dl Total Bilirubin (0.2-1.0) mg/dl AST (13-39) U/L ALT (7-52) U/L Alkaline Phosphatase (34-104) U/L C-Reactive Protein (0-0.5) mg/dl Total Protein (6.0-8.3) gm/dl Albumin (3.4-5.0) gm/dl Globulin (2.5-4.0) gm/dl Albumin/Globulin Ratio (0.9-2) Procalcitonin (0-0.5) ng/ml Urine Color Urine Appearance (Clear) Urine pH (4.5-7.5) Ur Specific [place] (1.000-1.030) Urine Protein (Negative) Urine Glucose (UA) (Negative) Urine Ketones (Negative) Urine Blood (Negative) Urine Nitrite (Negative) Urine Bilirubin (Negative) Urine Urobilinogen (Negative) Ur Leukocyte Esterase (Negative) SARS-CoV-2, RNA, NAAT (NEGATIVE) 01/13/22 01/13/22 01/13/22 Range/Units 12:55 11:57 10:43 WBC (4.8-10.8) K/uL RBC (4.2-5.4) M/uL Hgb (12.0-16.0) g/dL Hct (37-47) % MCV (80-100) fL MCH (25-34) pg MCHC (32-36) g/dL RDW Std Deviation (36.4-46.3) fL RDW Coeff of Zbigniew (11.5-14.5) % Plt Count (130-400) K/uL MPV (7.4-10.4) fL Immature Gran % (Auto) % Neut % (Auto) % Lymph % (Auto) % [place] % (Auto) % Eos % (Auto) % Baso % (Auto) % Neut # (Auto) (1.4-6.5) K/uL Lymph # (Auto) (1.2-3.4) K/uL [place] # (Auto) (0.11-0.59) K/uL Eos # (Auto) (0-0.5) K/uL Baso # (Auto) (0-0.2) K/uL Immature Gran # (Auto) (0.00-0.02) K/uL Sodium (136-145) mmol/L Potassium (3.5-5.1) mmol/L Chloride (98-107) mmol/L Carbon Dioxide (21-32) mmol/L Anion Gap (3-11) BUN (6-23) mg/dl Creatinine (0.6-1.2) mg/dl Est Cr Clr Drug Dosing ml/min Est GFR ( Amer) ml/min Est GFR (Non-Af Amer) ml/min BUN/Creatinine Ratio (10-20) Glucose (70-99(Fasting)) mg/dl POC Glucose (70-99) mg/dl Lactate 1.9 (0.4-2.0) mmol/L Calcium (8.5-10.1) mg/dl Total Bilirubin (0.2-1.0) mg/dl AST (13-39) U/L ALT (7-52) U/L Alkaline Phosphatase (34-104) U/L C-Reactive Protein (0-0.5) mg/dl Total Protein (6.0-8.3) gm/dl Albumin (3.4-5.0) gm/dl Globulin (2.5-4.0) gm/dl Albumin/Globulin Ratio (0.9-2) Procalcitonin (0-0.5) ng/ml Urine Color Yellow Urine Appearance Clear (Clear) Urine pH 6.5 (4.5-7.5) Ur Specific [place] 1.011 (1.000-1.030) Urine Protein Negative (Negative) Urine Glucose (UA) Negative (Negative) Urine Ketones Negative (Negative) Urine Blood Negative (Negative) Urine Nitrite Negative (Negative) Urine Bilirubin Negative (Negative) Urine Urobilinogen Negative (Negative) Ur Leukocyte Esterase Negative (Negative) SARS-CoV-2, RNA, NAAT NEGATIVE (NEGATIVE) 01/13/22 01/13/22 01/13/22 Range/Units 08:41 08:41 08:41 WBC (4.8-10.8) K/uL RBC (4.2-5.4) M/uL Hgb (12.0-16.0) g/dL Hct (37-47) % MCV (80-100) fL MCH (25-34) pg MCHC (32-36) g/dL RDW Std Deviation (36.4-46.3) fL RDW Coeff of Zbigniew (11.5-14.5) % Plt Count (130-400) K/uL MPV (7.4-10.4) fL Immature Gran % (Auto) % Neut % (Auto) % Lymph % (Auto) % [place] % (Auto) % Eos % (Auto) % Baso % (Auto) % Neut # (Auto) (1.4-6.5) K/uL Lymph # (Auto) (1.2-3.4) K/uL [place] # (Auto) (0.11-0.59) K/uL Eos # (Auto) (0-0.5) K/uL Baso # (Auto) (0-0.2) K/uL Immature Gran # (Auto) (0.00-0.02) K/uL Sodium 130 L (136-145) mmol/L Potassium 4.1 (3.5-5.1) mmol/L Chloride 95 L (98-107) mmol/L Carbon Dioxide 25 (21-32) mmol/L Anion Gap 10 (3-11) BUN 23 (6-23) mg/dl Creatinine 0.96 (0.6-1.2) mg/dl Est Cr Clr Drug Dosing 111.8 ml/min Est GFR ( Amer) 88.2 ml/min Est GFR (Non-Af Amer) 76.1 ml/min BUN/Creatinine Ratio 24.0 H (10-20) Glucose 172 H (70-99(Fasting)) mg/dl POC Glucose (70-99) mg/dl Lactate 2.2 H* (0.4-2.0) mmol/L Calcium 9.1 (8.5-10.1) mg/dl Total Bilirubin 1.2 H (0.2-1.0) mg/dl AST 21 (13-39) U/L ALT 43 (7-52) U/L Alkaline Phosphatase 83 (34-104) U/L C-Reactive Protein (0-0.5) mg/dl Total Protein 6.9 (6.0-8.3) gm/dl Albumin 3.9 (3.4-5.0) gm/dl Globulin 3.0 (2.5-4.0) gm/dl Albumin/Globulin Ratio 1.3 (0.9-2) Procalcitonin < 0.05 (0-0.5) ng/ml Urine Color Urine Appearance (Clear) Urine pH (4.5-7.5) Ur Specific [place] (1.000-1.030) Urine Protein (Negative) Urine Glucose (UA) (Negative) Urine Ketones (Negative) Urine Blood (Negative) Urine Nitrite (Negative) Urine Bilirubin (Negative) Urine Urobilinogen (Negative) Ur Leukocyte Esterase (Negative) SARS-CoV-2, RNA, NAAT (NEGATIVE) Diagnostic Findings Chest X-Ray 01/13/22 08:08 XR chest 1V portable HISTORY: 36 years-old Female SEPSIS acute sepsis COMPARISON: Chest radiograph 12/29/2021 TECHNIQUE: Portable AP view of the chest FINDINGS: Cardiac silhouette is enlarged. Reticular interstitial opacities with patchy bilateral alveolar opacities have mild to moderately improved. No pneumothorax or large pleural effusion. Bones appear grossly intact. IMPRESSION: Mild to moderately improved aeration of the lungs compatible with resolving pneumonia. Continued follow-up recommended. ACT 112: Negative or not required by law. The above report was generated using voice recognition software. It may contain grammatical, syntax or spelling errors. Electronically signed by: Arnoldo Sol M.D. 01/13/2022 8:28 AM PG Care Time/CCT Total # of Minutes Spent Total Time Spent with Patient: Total time spent is greater than 50% in coordination of care (as documented) at patient's floor/unit and/or counseling patient: Coding Level of Care Code 60949 Subseq Hosp Care Lvl 2 Diagnoses Sepsis A41.9 Abdominal wall abscess L02.211 Hyponatremia E87.1 Hypertension I10 Obesity E66.9 Diabetes mellitus E11.9 Pneumonia due to COVID-19 virus U07.1; J12.82 Acid reflux K21.9 Hyperlipidemia E78.5
[2022-01-14] MEDS ORDERED: SODIUM CHLORIDE 0.9% 1000ML 1,000 ML IV SCH (08:30)
--- NOTE | 2022-01-14 08:38 | History & Physical Bridge Note ---
Date of Service January 14, 2022 History & Physical Bridge Note I have examined the patient, reviewed the History & Physical and in the interval since the performance of the History & Physical I have noted the following changes of clinical significance: no changes noted
[2022-01-14] MEDS: INSULIN GLARGINE SOLOSTAR 100 UNITS/ML 3 ML PEN SC SCH ×2 (08:44→20:43)
[2022-01-14] MEDS ORDERED: SIMVASTATIN 20 MG TAB PO SCH (09:00)
[2022-01-14] MEDS ORDERED: MECOBALAMIN 1000 MCG PO SCH (09:00)
[2022-01-14] MEDS ORDERED: FLUCONAZOLE 50 MG TAB PO SCH (09:00)
[2022-01-14] MEDS ORDERED: fentaNYL citrate 100 MCG/2 ML VIAL IV PRN (09:53)
[2022-01-14] MEDS ORDERED: PHENYLEPHRINE 100MCG/ML 5ML SYR IV PRN (09:53)
[2022-01-14] MEDS ORDERED: ONDANSETRON INJ 2 MG/ML 2 ML VIAL IV PRN ×2 (09:53→11:24)
[2022-01-14] MEDS ORDERED: HYDROmorphone INJ 1 MG/ML SYRINGE IV PRN (09:53)
[2022-01-14] MEDS ORDERED: LABETALOL HCL IV 5 MG/ML 20ML IV PRN (09:53)
[2022-01-14] MEDS ORDERED: ePHEDrine sulfate 50 MG/ML AMP IV PRN (09:53)
[2022-01-14] MEDS ORDERED: ATROPINE SULFATE 0.1 MG/ML 10ML SYR IV PRN (09:53)
--- NOTE | 2022-01-14 09:57 | Anesthesiology Consultation ---
Date of Service January 14, 2022 Assessment & Plan (1) Encounter for pre-operative examination: Chart Review Chart Review: Acceptable Risk for Surgery (necessary surgery) and Patient NOT seen in Pre Admission Testing Consults Requested none History Surgery Operation Date: 01/14/22 10:10 Proposed Procedures p Incision and Drainage Abdominal Wall Abscess, Debridement - Jeet Wilson MD, FACS Height/Weight Height: 5 ft Weight: 156.8 kg Allergies Allergy/AdvReac Type Severity Reaction Status Date / Time doxycycline Allergy Severe hives Verified 01/13/22 10:00 Estrogens Allergy Severe ANAPHYLAXIS Verified 01/13/22 10:00 WITH CONTROL PILLS lithium Allergy Severe ANAPHYLAXIS Verified 01/13/22 10:00 sulfamethoxazole Allergy Severe red skin, Verified 01/13/22 10:00 [From Bactrim] itchy trimethoprim [From Bactrim] Allergy Severe red skin, Verified 01/13/22 10:00 itchy SOAPCLEAN Allergy Mild RASH Uncoded 01/13/22 10:00 (FACIAL CLEANSERS) Medications Home Medications Medication Instructions Recorded Confirmed Last Taken blood sugar diagnostic (OneTouch #300 ea 03/27/21 01/06/22 Unknown Ultra Blue Test Strip) mecobalamin (vitamin B12) 1,000 1,000 mcg PO DAILY #30 tab 04/08/21 01/13/22 01/12/22 mcg chewable tablet lisinopril 10 mg tablet 10 mg PO DAILY #90 tab 05/14/21 01/13/22 01/12/22 fluconazole 150 mg tablet 150 mg PO .weekly 180 Days #24 tab 08/26/21 01/13/22 01/07/22 (Diflucan) triamterene 37.5 1 tab PO BID #60 tab 10/03/21 01/13/22 01/12/22 mg-hydrochlorothiazide 25 mg tablet blood-glucose meter (OneTouch ea 10/09/21 01/06/22 Unknown Ultra2 Meter) famotidine 20 mg tablet 20 mg PO BID #180 tab 11/19/21 01/13/22 01/12/22 simvastatin 20 mg tablet 20 mg PO DAILY #90 tab 11/19/21 01/13/22 01/12/22 pen needle, diabetic 31 gauge x #200 ea 12/11/21 01/06/22 Unknown 11/26" (1st Tier Unifine Pentips) lancets 30 gauge (OneTouch Delica #300 ea 12/31/21 01/06/22 Unknown Plus Lancet) rivaroxaban 10 mg tablet (Xarelto) 10 mg PO DAILY 30 Days #30 tab 01/04/22 01/13/22 01/12/22 amlodipine 5 mg tablet (Norvasc) 5 mg PO HS 01/13/22 01/13/22 01/12/22 cetirizine 10 mg tablet 10 mg PO HS 01/13/22 01/13/22 01/12/22 insulin degludec 200 unit/mL (3 74 unit SUBCUT DAILY@0600 01/13/22 01/13/22 01/13/22 mL) subcutaneous pen (Tresiba FlexTouch U-200 insulin) insulin lispro-aabc 100 unit/mL 4 unit SUBCUT TIDM 01/13/22 01/13/22 01/12/22 subcutaneous pen (Lyumjev KwikPen U-100 Insulin) medroxyprogesterone 2.5 mg tablet 2.5 mg PO DAILY 01/13/22 01/13/22 01/12/22 (Provera) semaglutide 1 mg/dose (4 mg/3 mL) 1 mg SUBCUT WK 01/13/22 01/13/22 01/09/22 subcutaneous pen injector (Ozempic) Active Medications Generic Name Dose Route Start Last Admin Trade Name Freq PRN Reason Stop Dose Admin Acetaminophen 650 mg 01/13/22 13:35 01/13/22 18:39 Acetaminophen 325 Mg Tab PO 02/12/22 13:34 650 mg Q4H PRN Administration Pain or Fever Cetirizine HCl 10 mg 01/13/22 21:00 01/13/22 20:52 Cetirizine Hcl 10 Mg Tablet PO 02/12/22 20:59 10 mg HS MAHAMED Administration Cyanocobalamin 1,000 mcg 01/13/22 14:30 01/14/22 07:31 Cyanocobalamin (B-12) 500 Mcg Tablet PO 02/12/22 14:29 1,000 mcg DAILY MAHAMED Administration Famotidine 20 mg 01/13/22 15:00 01/14/22 07:31 Famotidine 20 Mg Tab PO 02/12/22 14:59 20 mg BID MAHAMED Administration Fluconazole 150 mg 01/14/22 09:00 01/14/22 07:31 Fluconazole 50 Mg Tab PO 01/24/22 08:59 150 mg Tu@0900 MAHAMED Administration Daptomycin 525 mg/ Syringe 10.5 mls @ 5.25 mls/min 01/13/22 23:00 01/13/22 23:31 IV 01/20/22 22:59 5.25 mls/min HS MAHAMED Administration Protocol Sodium Chloride 1,000 mls @ 80 mls/hr 01/14/22 08:30 01/14/22 08:44 Nss 1000ml IV 01/14/22 20:59 80 mls/hr .[id number] MAHAMED Administration Insulin Aspart 0 units 01/14/22 06:00 01/14/22 06:03 Insulin Aspart Per Unit SC 02/13/22 05:59 Not Given Q6 MAHAMED Insulin Glargine 30 units 01/14/22 09:00 01/14/22 08:44 Insulin Glargine Solostar 100 Units/Ml 3 Ml Pen SC 02/13/22 08:59 30 units BID MAHAMED Administration Medroxyprogesterone Acetate 2.5 mg 01/13/22 13:35 01/14/22 07:31 Medroxyprogesterone Acetate 2.5 Mg Tab PO 02/12/22 13:34 2.5 mg DAILY MAHAMED Administration Simvastatin 20 mg 01/13/22 13:35 01/13/22 16:02 Simvastatin 20 Mg Tab PO 02/12/22 13:34 Not Given DAILY MAHAMED NPO Date Last Intake of Fluids: 01/13/22 Time Last Intake of Fluids: 23:40 Date Last Intake of Solids: 01/13/22 Time Last Intake of Solids: 18:00 Past Medical History Medical History Abscess Acid reflux Anxiety and depression Diabetes mellitus Fatty liver History of breast abscess Hyperlipidemia Hypertension Hyponatremia Morbid obesity Pneumonia due to COVID-19 virus Seasonal allergies Past Family History Family History Grandmother (Paternal) Breast cancer Grandmother (Maternal) Colorectal cancer Diabetes Mother Diabetes Gallbladder problem Father , from suicide age 58 Diabetes Heart disease Coronary heart disease, Onset Age: 57 Father had CABG at age 57 Depression Sister Gallbladder problem Other Family history non-contributory Denies family history of Ovarian cancer Prostate cancer Past Surgical History Surgical History History of adenoidectomy Hx of tonsillectomy Social History Smoking Status: Former smoker tobacco type: cigarettes Do You Dip or Chew Tobacco: No Smoking End Date: 2004 Hx Alcohol Use: Yes Alcohol type: wine alcohol intake frequency: holidays/special occasions only Hx Substance Use: No Physical Exam Vital Signs Last Vital Signs Temp 37.2 C 01/14/22 09:23 Pulse 86 01/14/22 09:23 Resp 20 01/14/22 09:23 BP 131/86 01/14/22 09:23 Pulse Ox 94 01/14/22 09:23 Testing Laboratory Results 01/14/22 07:03 01/14/22 07:03 PT 10.4 Seconds (9.0-12.0) 01/13/22 08:41 INR 1.0 (0.9-1.1) 01/13/22 08:41 APTT 31.3 Seconds (21.0-31.0) H 01/13/22 08:41 Urine Color Yellow 01/13/22 12:55 Urine Appearance Clear (Clear) 01/13/22 12:55 Urine pH 6.5 (4.5-7.5) 01/13/22 12:55 Ur Specific [place] 1.011 (1.000-1.030) 01/13/22 12:55 Urine Protein Negative (Negative) 01/13/22 12:55 Urine Glucose (UA) Negative (Negative) 01/13/22 12:55 Urine Ketones Negative (Negative) 01/13/22 12:55 Urine Nitrite Negative (Negative) 01/13/22 12:55 Ur Leukocyte Esterase Negative (Negative) 01/13/22 12:55 01/14/22 01/14/22 06:02 00:11 POC Glucose 133 H 146 H Electrocardiogram Date: 01/13/22 DICTATED BY:Oliver Samson MD Test Reason : Blood Pressure : / mmHG Vent. Rate : 089 BPM Atrial Rate : 089 BPM P-R Int : 130 ms QRS Dur : 084 ms QT Int : 382 ms P-R-T Axes : 025 003 033 degrees QTc Int : 464 ms Normal sinus rhythm Normal ECG When compared with ECG of 29-DEC-2021 21:37, No significant change was found Confirmed by Oliver Samson ([id number]) on 01/13/2022 1:50:56 PM Referred By: REFERRED SELF Confirmed By:[place]ito Samson Chest X-Ray Date: 01/13/22 XR chest 1V portable HISTORY: 36 years-old Female SEPSIS acute sepsis COMPARISON: Chest radiograph 12/29/2021 TECHNIQUE: Portable AP view of the chest FINDINGS: Cardiac silhouette is enlarged. Reticular interstitial opacities with patchy bilateral alveolar opacities have mild to moderately improved. No pneumothorax or large pleural effusion. Bones appear grossly intact. IMPRESSION: Mild to moderately improved aeration of the lungs compatible with resolving pneumonia. Continued follow-up recommended. ACT 112: Negative or not required by law. The above report was generated using voice recognition software. It may contain grammatical, syntax or spelling errors. Electronically signed by: Arnoldo Sol M.D. 01/13/2022 8:28 AM Dictated:01/13/22 0827 Transcribed: 01/13/22 0827
[2022-01-14] MEDS ORDERED: Flu Vaccine (Fluarix) 0.5mL SYR (Standard Dose) IM ONE (10:00)
[2022-01-14 10:06] LABS: Pregnancy Test, Serum Negative (Negative)
[2022-01-14] MEDS ORDERED: ceFAZolin 330 MG/ML 1 GM VIAL ONE (10:28)
[2022-01-14] MEDS ORDERED: fentaNYL citrate 100 MCG/2 ML VIAL ONE (10:34)
[2022-01-14] MEDS ORDERED: MIDAZOLAM HCL 1 MG/ML 2ML VIAL ONE (10:34)
[2022-01-14] MEDS ORDERED: PROPOFOL IV EMULSION 10 MG/ML 20 ML VIAL IV ONE ×2 (10:36→11:05)
[2022-01-14] MEDS ORDERED: DEXAMETHASONE SOD INJ 4 MG/ML VIAL ONE (11:06)
[2022-01-14] MEDS ORDERED: ONDANSETRON INJ 2 MG/ML 2 ML VIAL ONE (11:06)
[2022-01-14] MEDS ORDERED: SUCCINYLCHOLINE CHLORIDE 20 MG/ML 10 ML VIAL IV ONE (11:06)
[2022-01-14] MEDS ORDERED: LIDOCAINE 2% 2 ML VIAL/AMP(20MG/ML) INFIL ONE (11:06)
[2022-01-14] MEDS ORDERED: BUPIVACAINE 0.5 % 5 MG/1 ML MPF 30ML VIAL INFIL ONE (11:20)
--- NOTE | 2022-01-14 11:23 | Post Operative Brief Note ---
PG Immediate Post Op with CF Date of Surgery January 14, 2022 Pre & Post Diagnosis Operation Date: 01/14/22 10:10 Pre-Op Diagnosis: Abdominal wall abscess Post-Op Diagnosis: Abdominal wall abscess I identified the patient and participated in the time-out.: Yes Procedure Operation Date: 01/14/22 10:10 Actual Procedures p Incision and Drainage Abdominal Wall Abscess, Debridement - Jeet Wilson MD, FACS Surgeon Jeet Wilson MD, FACS [employer] Estimated Blood Loss 10 Findings Consistent with Post-Op Diagnosis Abdominal wall abscess deep into the subcutaneous tissue approximately 6 x 4 cm Specimens Specimen Description: Culture 1: abdominal wound Permanent A: left lower quadrant abdominal wall tissue
[2022-01-14] MEDS ORDERED: MoRPHine SULFATE 2 MG/ML CARP IV PRN (11:24)
[2022-01-14] MEDS ORDERED: oxyCODONE HCL IR 5 MG TAB (IMMEDIATE RELEASE) PO PRN (11:24)
[2022-01-14] MEDS ORDERED: PROMETHAZINE HCL 12.5 MG in SODIUM CHLORIDE 0.9% 50 ML IV PRN (11:24)
[2022-01-14] MEDS ORDERED: ACETAMINOPHEN 1,000 MG/100 ML VIAL IV ONE (11:24)
--- NOTE | 2022-01-14 12:19 | Anesthesiology Progress Note ---
Date of Service January 14, 2022 Anesthesia Post Procedure Vital Signs Vital Signs: Temp Pulse Pulse Pulse Resp BP Pulse Ox 01/14/22 12:15 97 H 15 131/83 95 01/14/22 12:05 36.6 C 90 14 114/99 96 01/14/22 11:55 94 H 17 104/84 94 01/14/22 11:45 93 H 22 117/83 96 01/14/22 11:36 37.3 C 103 H 16 105/78 97 01/14/22 09:23 37.2 C 86 20 131/86 94 01/14/22 07:13 37 C 98 H 18 121/77 92 01/14/22 04:12 36.9 C 95 H 20 111/75 90 01/14/22 00:49 95 H 01/13/22 23:45 36.8 C 95 H 20 119/76 96 01/13/22 18:37 36.9 C 122 H 20 110/76 94 01/13/22 17:00 96 H 01/13/22 16:20 37.2 C 100 H 22 131/79 97 01/13/22 14:31 37.1 C 69 22 132/78 97 Transfer of Care Handoff Completed per policy Notes Mental Status: alert / awake / arousable Patient Amnestic to Procedure: Yes Nausea / Vomiting: adequately controlled Pain: adequately controlled Airway Patency, RR, SpO2: stable & adequate BP & HR: stable & adequate Hydration State: stable & adequate Anesthetic Complications: no major complications apparent and Pt Satisfied with anesthetic care Notes: The patient is awake and comfortable. Her SpO2 is in the low to mid 90s on 2 L [place] oxygen. She will have continuous pulse oximetry on the floor.
[2022-01-14] MEDS: ACETAMINOPHEN 325 MG TAB PO PRN (16:42)
--- NOTE | 2022-01-14 16:42 | Operative Report (OR) ---
DATE OF OPERATION: 01/14/2022 NAME OF OPERATION: Incision, drainage and debridement of left lower quadrant abdominal wall abscess, which was greater than 20 cm2 and contained skin and subcutaneous tissue. PREOPERATIVE DIAGNOSIS: Left lower quadrant abdominal wall abscess. POSTOPERATIVE DIAGNOSIS: Left lower quadrant abdominal wall abscess. STAFF SURGEON: Jeet Wilson MD. ANESTHESIA: General. DESCRIPTION OF PROCEDURE: The patient was brought in the operating room and placed on the operating table in supine position. Her lower abdomen was prepped and draped in the usual fashion after approp riate anesthetic, I did use 0.5% plain Marcaine to anesthetize skin around the area of infection. I opened the site and cultured it. It did appear to contain some tissue similar to an epidermoid cyst with sebaceous material. I did excise tissue around this area down to normal tissue and sent for rou renzo pathology. We did culture it. Deep tissue did appear to be viable. We packed it with Betadine gauze. This site was approximately 6 x 4 cm. Dressing applied. [facility] Job ID: [id number]
[2022-01-14] MEDS: DAPTOmycin 525 MG in SYRINGE 0 ML IV SCH (20:41)
[2022-01-14] MEDS: CETIRIZINE HCL 10 MG TABLET PO SCH (20:41)
[2022-01-15 07:20] LABS: Basophils # (auto) 0.01 K/uL (0-0.2); Basophils % (auto) 0.1 %; Hematocrit (blood only) 33.8 % (37-47); Hemoglobin 11.5 g/dL (12.0-16.0); Immature Granulocytes # (auto) 0.05 K/uL (0.00-0.02); Immature Granulocytes % (auto) 0.7 %; Lymphocytes # (auto) 0.78 K/uL (1.2-3.4); Lymphocytes % (auto) 11.4 %; Mean Corpuscular Hemoglobin 30.7 pg (25-34); Mean Corpuscular Volume 90.1 fL (80-100); Monocytes # (auto) 0.61 K/uL (0.11-0.59); Monocytes % (auto) 8.9 %; Neutrophils # (auto) 5.38 K/uL (1.4-6.5); Neutrophils % (auto) 78.9 %; Platelet Count 255 K/uL (130-400); RDW Standard Deviation 46.2 fL (36.4-46.3); Red Blood Count 3.75 M/uL (4.2-5.4); White Blood Count 6.83 K/uL (4.8-10.8)
--- NOTE | 2022-01-15 07:23 | Surgery Progress Note ---
Date of Service January 15, 2022 Assessment & Plan (1) S/P excisional debridement: Plan: Patient underwent incision drainage and debridement with culture of Left lower abdominal abscess This may have been an epidermoid cyst-with chronic infection Culture pending Continue on IV antibiotics Wound nurse evaluation with probable VAC placement and follow-up with the wound clinic Patient may begin anticoagulation from the surgical standpoint Per medical team Admission and Anticipated Discharge Date Admission Date: January 13, 2022 Results & Data ([facility]) Vital Signs (Past 12 Hours) Vital Signs Temp Pulse Pulse Resp BP Pulse Ox 01/15/22 03:12 36.9 C 83 18 120/81 94 01/15/22 01:00 98 H 01/14/22 22:50 36.8 C 93 H 18 120/75 88 L PG Care Time/CCT Total # of Minutes Spent Total Time Spent with Patient: Total time spent is greater than 50% in coordination of care (as documented) at patient's floor/unit and/or counseling patient: Coding Level of Care Code None Diagnoses S/P excisional debridement Z98.890
--- NOTE | 2022-01-15 07:33 | Hospitalist Progress Note ---
Date of Service January 15, 2022 Assessment & Plan (1) Sepsis: Plan: Presented with hypotension, tachycardia, elevated lactate, and mild leukocytosis at 11, with source being abdominal wall abscess Given 1 L normal saline in the ER and blood pressure improved, lactate returned normal Vanco in ER, continues on Daptomycin IV WBC 11.1k --> 5.2k Afebrile General surgery consulted POD#1 s/p I&D with Dr. Wilson OR culture -- GS many WBC, many gram + cocci, gram + bacilli. No growth to date on preliminary Blood cultures NGTD -- follow Continue on Dapto for now Could have been inflammed cyst, but also with some concerns for possible HS and arranged f/u with dermatology Xarelto resumed -- complete course previously schedule Resume Amlodipine but hole Dyazide until AM given slightly low BP Schedule miralax Q4H until bowel movement -- had issues after last inpatient stay as well Pain control -- tylenol has been effective Consulted wound care for placement of wound vac, alerted CM of such. Patient states her mom had one in past as well. (2) Abdominal wall abscess: Plan: As above With a history of coagulase-negative Staphylococcus in the past, no history of MRSA Monitor cx from OR -- prelim no growth (3) Hyponatremia: Plan: Mildly low at 130, asymptomatic Likely secondary to hypovolemia from sepsis as well as HCTZ use Holding home Dyazide still, Na improved to 134. BMP in AM (4) Hypertension: Plan: With hypotension on arrival as above, BP improved and currently 116/67 Resume amlodipine for this evening but wait for dyzide until AM (5) Obesity: Plan: BMI 64.7 Holding home Ozempic Should consider bariatric surgery as an outpatient -- has appointment with Dr. Westfall (6) Diabetes mellitus: Plan: Fairly well controlled with hemoglobin A1c 6.6% earlier this month She already took her Tresiba, start Lantus 30 units SQ twice daily for tomorrow morning NovoLog supplemental insulin with meals and at bedtime Hold home Ozempic, Tresiba, insulin lispro Tighten SSI, BSG 234 most recently Monitor Follow up with endocrinology (7) Pneumonia due to COVID-19 virus: Plan: Recent admission for such and discharged on 01/04 Still with evidence of infiltrates on chest x-ray but improved from previous She is not requiring oxygen and is overall much improved since her hospitalization for Covid-19 Needs follow-up chest x-ray in 3-4 more weeks to ensure resolution On room air (8) Acid reflux: Plan: Continue home Pepcid (9) Hyperlipidemia: Plan: Continue home statin Plan: DVT prophylaxis-holding home Xarelto 10 mg daily for surgical drainage, resumed 01/15 and would recommend to complete 35 days post discharge from COVID-19 admission (she states she got 30 days, and will send additional if needed minus whatever given while inpatient to complete 35 days) Full code Her healthcare power of business attorney would be her sister in the event she is not able to make decisions for herself Admission and Anticipated Discharge Date Admission Date: January 13, 2022 Subjective patient evaluated this morning, painful but tolerable with ordered medications and states she doesn't need anything at this time. moving around/passing gas but NO BM. She states this happened last time and she took miralax at home. Will order scheduled every 4 hours until BM. discussed wound rn (not yet seen, consult placed this morning but was discussed in anticipation yesterday) about placement of wound vac. continuing on daptomycin until cultures returned but plans for outpt f/u dermatology for continued discussions/possible HS. No fever, chills, chest pain,shortness of breath, nausea, vomiting or dysuria at this time. Review of Systems Review of Systems: All systems reviewed & are unremarkable except as noted in HPI & below Physical Exam Constitutional: WD/WN, vitals as above + morbidly obese Eyes: PERRL, conjunctivae normal, anicteric sclerae ENMT: external ear and nose normal, oropharynx normal Neck: trachea midline, no thyromegaly Respiratory: normal respiratory effort, lungs clear to auscultation Auscultation: + diminished lung sounds (throughout) Cardiovascular: RRR, no murmur, no edema Chest (Breasts): Chest: normal inspection of chest Gastrointestinal (Abdomen): normal bowel sounds, soft, nontender, no hepatosplenomegaly Musculoskeletal: Extremities: extremities normal to inspection; no cyanosis and no clubbing Skin: LLQ abdominal wound, packing intact, tender to palpation, less erythema, dressing not satruated Neurologic: moves all extremities and awake; no focal motor deficits Psychiatric: A+Ox3, euthymic affect Results & Data Results & Data ([facility]) Vital Signs (Past 12 Hours) Vital Signs Temp Pulse Pulse Resp BP Pulse Ox 01/15/22 03:12 36.9 C 83 18 120/81 94 01/15/22 01:00 98 H 01/14/22 22:50 36.8 C 93 H 18 120/75 88 L Laboratory Results 01/15/22 01/15/22 01/15/22 Range/Units 11:27 07:24 06:55 WBC (4.8-10.8) K/uL RBC (4.2-5.4) M/uL Hgb (12.0-16.0) g/dL Hct (37-47) % MCV (80-100) fL MCH (25-34) pg MCHC (32-36) g/dL RDW Std Deviation (36.4-46.3) fL RDW Coeff of Zbigniew (11.5-14.5) % Plt Count (130-400) K/uL MPV (7.4-10.4) fL Immature Gran % (Auto) % Neut % (Auto) % Lymph % (Auto) % Patrick % (Auto) % Eos % (Auto) % Baso % (Auto) % Neut # (Auto) (1.4-6.5) K/uL Lymph # (Auto) (1.2-3.4) K/uL Patrick # (Auto) (0.11-0.59) K/uL Eos # (Auto) (0-0.5) K/uL Baso # (Auto) (0-0.2) K/uL Immature Gran # (Auto) (0.00-0.02) K/uL Sodium 134 L (136-145) mmol/L Potassium 3.9 (3.5-5.1) mmol/L Chloride 104 (98-107) mmol/L Carbon Dioxide 23 (21-32) mmol/L Anion Gap 7 (3-11) BUN 18 (6-23) mg/dl Creatinine 0.78 (0.6-1.2) mg/dl Est Cr Clr Drug Dosing 143.1 ml/min Est GFR ( Amer) 113.4 ml/min Est GFR (Non-Af Amer) 97.8 ml/min BUN/Creatinine Ratio 23.1 H (10-20) Glucose 193 H (70-99(Fasting)) mg/dl POC Glucose 234 H 197 H (70-99) mg/dl Calcium 8.3 L (8.5-10.1) mg/dl C-Reactive Protein 1.94 H (0-0.5) mg/dl 01/15/22 01/14/22 01/14/22 Range/Units 06:55 20:14 16:30 WBC 6.83 (4.8-10.8) K/uL RBC 3.75 L (4.2-5.4) M/uL Hgb 11.5 L (12.0-16.0) g/dL Hct 33.8 L (37-47) % MCV 90.1 (80-100) fL MCH 30.7 (25-34) pg MCHC 34.0 (32-36) g/dL RDW Std Deviation 46.2 (36.4-46.3) fL RDW Coeff of Zbigniew 14.0 (11.5-14.5) % Plt Count 255 (130-400) K/uL MPV 10.0 (7.4-10.4) fL Immature Gran % (Auto) 0.7 % Neut % (Auto) 78.9 % Lymph % (Auto) 11.4 % Patrick % (Auto) 8.9 % Eos % (Auto) 0.0 % Baso % (Auto) 0.1 % Neut # (Auto) 5.38 (1.4-6.5) K/uL Lymph # (Auto) 0.78 L (1.2-3.4) K/uL Patrick # (Auto) 0.61 H (0.11-0.59) K/uL Eos # (Auto) 0.00 (0-0.5) K/uL Baso # (Auto) 0.01 (0-0.2) K/uL Immature Gran # (Auto) 0.05 H (0.00-0.02) K/uL Sodium (136-145) mmol/L Potassium (3.5-5.1) mmol/L Chloride (98-107) mmol/L Carbon Dioxide (21-32) mmol/L Anion Gap (3-11) BUN (6-23) mg/dl Creatinine (0.6-1.2) mg/dl Est Cr Clr Drug Dosing ml/min Est GFR ( Amer) ml/min Est GFR (Non-Af Amer) ml/min BUN/Creatinine Ratio (10-20) Glucose (70-99(Fasting)) mg/dl POC Glucose 221 H 224 H (70-99) mg/dl Calcium (8.5-10.1) mg/dl C-Reactive Protein (0-0.5) mg/dl PG Care Time/CCT Total # of Minutes Spent Total Time Spent with Patient: Total time spent is greater than 50% in coordination of care (as documented) at patient's floor/unit and/or counseling patient: Coding Level of Care Code 53565 Subseq Hosp Care Lvl 2 Diagnoses Sepsis A41.9 Abdominal wall abscess L02.211 Hyponatremia E87.1 Hypertension I10 Obesity E66.9 Diabetes mellitus E11.9 Pneumonia due to COVID-19 virus U07.1; J12.82 Acid reflux K21.9 Hyperlipidemia E78.5
[2022-01-15 07:44] LABS: BUN Creatinine Ratio 23.1 (10-20); C Reactive Protein 1.94 mg/dl (0-0.5); Calcium 8.3 mg/dl (8.5-10.1); Creatinine Clr Calc Pharmacy 143.1 ml/min; Est GFR (African American) 113.4 ml/min; Est GFR (Non-African American) 97.8 ml/min; Potassium 3.9 mmol/L (3.5-5.1)
[2022-01-15] MEDS: RIVAROXABAN 10 MG TABLET PO SCH (08:05)
[2022-01-15] MEDS: INSULIN ASPART PER UNIT SC SCH ×4 (08:05→21:38)
[2022-01-15] MEDS: INSULIN GLARGINE SOLOSTAR 100 UNITS/ML 3 ML PEN SC SCH ×2 (08:06→21:38)
[2022-01-15] MEDS: FAMOTIDINE 20 MG TAB PO SCH ×2 (08:06→21:35)
[2022-01-15] MEDS: POLYETHYLENE (MIRALAX) 17 GM PACK PO SCH ×4 (10:36→21:26)
[2022-01-15] MEDS: ACETAMINOPHEN 325 MG TAB PO PRN ×3 (13:12→21:34)
[2022-01-15] MEDS: DAPTOmycin 525 MG in SYRINGE 0 ML IV SCH (21:34)
[2022-01-15] MEDS: CETIRIZINE HCL 10 MG TABLET PO SCH (21:35)
[2022-01-15] MEDS: amLODIPine BESYLATE 5 MG TAB PO SCH (21:37)
[2022-01-16] MEDS ORDERED: MELATONIN 3 MG TAB PO PRN (00:46)
[2022-01-16] MEDS: POLYETHYLENE (MIRALAX) 17 GM PACK PO SCH ×3 (01:11→11:04)
--- NOTE | 2022-01-16 07:44 | Hospitalist Progress Note ---
Date of Service January 16, 2022 Assessment & Plan (1) Sepsis: Plan: Presented with hypotension, tachycardia, elevated lactate, and mild leukocytosis at 11, with source being abdominal wall abscess Given 1 L normal saline in the ER and blood pressure improved, lactate returned normal Vanco in ER, placed on Daptomycin IV while inpatient General surgery consulted POD#2 s/p I&D with Dr. Wilson OR cx with moderate counts mixed probable skin microbiota on preliminary -- monitor WBC 7.5 from 11k on admission Remains afebrile Could have been inflammed cyst, but also with some concerns for possible HS and arranged f/u with dermatology Blood cultures remain NGTD Wound vac placed on 01/15 by wound RN --> working on approval for home wound vac, hopefully tomorrow and will need f/u with wound at d/c Given hx CONS, and concerns to cover for MRSA in patient with reported allergies to Doxycycline and Bactrim, will switch to Zyvox 600mg BID (cost 3.56$ for week supply, checked by CM) as well as Keflex 500mg QID to cover for strep to monitor for any intolerance and would complete 7-10 day course Scheduled miralax until BM (issues last inpatient stay) == + BM 01/15 and can hold off further for now Tylenol effective for pain control Monitor overnight while working on approval for wound vac but patient hopeful for discharge tomorrow (2) Abdominal wall abscess: Plan: As above With a history of coagulase-negative Staphylococcus in the past, no history of MRSA Monitor cx from OR -- prelim no growth, monitor Will need f/u Derm as well (3) Hyponatremia: Plan: Mildly low at 130, asymptomatic on admission --Likely secondary to hypovolemia from sepsis as well as HCTZ use Home Dyazide this evening,01/16, improvement in hydration status and Na 138 on BMP Continue to monitor now that this has been resumed (4) Hypertension: Plan: With hypotension on arrival as above BP stable, home meds resumed and will continue to monitor (5) Obesity: Plan: BMI 64.7 Holding home Ozempic Should consider bariatric surgery as an outpatient -- has appointment with Dr. Westfall in follow up for discussion (6) Diabetes mellitus: Plan: Fairly well controlled with hemoglobin A1c 6.6% earlier this month She already took her Tresiba, start Lantus 30 units SQ twice daily for tomorrow morning NovoLog supplemental insulin with meals and at bedtime Hold home Ozempic, Tresiba, insulin lispro Tightened SSI 01/15 and BSGs much improved Monitor Follow up with endocrinology outpt (7) Pneumonia due to COVID-19 virus: Plan: Recent admission for such and discharged on 01/04 Still with evidence of infiltrates on chest x-ray but improved from previous She is not requiring oxygen and is overall much improved since her hospitalization for Covid-19 Needs follow-up chest x-ray in 3-4 more weeks to ensure resolution On room air (8) Acid reflux: Plan: Continue home Pepcid (9) Hyperlipidemia: Plan: Continue home statin Full code Her healthcare power of head cook would be her sister in the event she is not able to make decisions for herself Plan: DVT prophylaxis-holding home Xarelto 10 mg daily for surgical drainage, resumed 01/15 and would recommend to complete 35 days post discharge from COVID-19 admission (she states she got 30 days, and will send additional if needed minus whatever given while inpatient to complete 35 days) Hopeful for d/c tomorrow Admission and Anticipated Discharge Date Admission Date: January 13, 2022 Supervising Physician Co-Signing Physician Notes Attending Attestation - Chart reviewed in detail, care plan d/w LAUREN Beth. I agree with the ma components of her documentation. Additional info re: obesity -- MORBID obesity - BMI >65 Agree w/ zyvox given multiple abx allergies. Cost is not an issue per case management. Kei Julian MD Subjective patient evaluated this morning doing well, pain controlled with tylenol had BM yesterday after miralax. cx remains NGTD on preliminary. No fever, chills, chest pain, shortness of breath, nausea, vomiting or other symptoms. She is anxious for discharge if possible today. Will discuss with wound RN to see if able to transition to a home unit. zyvox 600mg BID 7-10 days + keflex for treatment could be option that would cover CoNS, MRSA, and enterococcus. CM working on getting approval for home wound vac Review of Systems Review of Systems: All systems reviewed & are unremarkable except as noted in HPI & below Physical Exam Constitutional: WD/WN, vitals as above + morbidly obese Eyes: PERRL, conjunctivae normal, anicteric sclerae ENMT: external ear and nose normal, oropharynx normal Neck: trachea midline, no thyromegaly Respiratory: normal respiratory effort, lungs clear to auscultation Auscultation: + diminished lung sounds (throughout) Cardiovascular: RRR, no murmur, no edema Chest (Breasts): Chest: normal inspection of chest Gastrointestinal (Abdomen): normal bowel sounds, soft, nontender, no hepatosplenomegaly Musculoskeletal: Extremities: extremities normal to inspection; no cyanosis and no clubbing Skin: LLQ with significant improvement in erythema, wound vac in place and functioning, soft, minimal tenderness Neurologic: moves all extremities and awake; no focal motor deficits Psychiatric: A+Ox3, euthymic affect Results & Data Results & Data ([facility]) Vital Signs (Past 12 Hours) Vital Signs Temp Pulse Pulse Resp BP Pulse Ox 01/16/22 04:30 36.7 C 89 20 116/69 94 01/16/22 01:46 92 H 01/16/22 00:04 36.4 C L 67 18 123/81 93 Laboratory Results 01/16/22 01/15/22 01/15/22 Range/Units 07:37 20:48 16:56 Sodium (136-145) mmol/L Potassium (3.5-5.1) mmol/L Chloride (98-107) mmol/L Carbon Dioxide (21-32) mmol/L Anion Gap (3-11) BUN (6-23) mg/dl Creatinine (0.6-1.2) mg/dl Est Cr Clr Drug Dosing ml/min Est GFR ( Amer) ml/min Est GFR (Non-Af Amer) ml/min BUN/Creatinine Ratio (10-20) Glucose (70-99(Fasting)) mg/dl POC Glucose 93 156 H 109 H (70-99) mg/dl Calcium (8.5-10.1) mg/dl C-Reactive Protein (0-0.5) mg/dl 01/15/22 01/15/22 Range/Units 11:27 06:55 Sodium 134 L (136-145) mmol/L Potassium 3.9 (3.5-5.1) mmol/L Chloride 104 (98-107) mmol/L Carbon Dioxide 23 (21-32) mmol/L Anion Gap 7 (3-11) BUN 18 (6-23) mg/dl Creatinine 0.78 (0.6-1.2) mg/dl Est Cr Clr Drug Dosing 143.1 ml/min Est GFR ( Amer) 113.4 ml/min Est GFR (Non-Af Amer) 97.8 ml/min BUN/Creatinine Ratio 23.1 H (10-20) Glucose 193 H (70-99(Fasting)) mg/dl POC Glucose 234 H (70-99) mg/dl Calcium 8.3 L (8.5-10.1) mg/dl C-Reactive Protein 1.94 H (0-0.5) mg/dl PG Care Time/CCT Total # of Minutes Spent Total Time Spent with Patient: Total time spent is greater than 50% in coordination of care (as documented) at patient's floor/unit and/or counseling patient: Coding Level of Care Code 99141 Subseq Hosp Care Lvl 3 Diagnoses Sepsis A41.9 Abdominal wall abscess L02.211 Hyponatremia E87.1 Hypertension I10 Obesity E66.9 Diabetes mellitus E11.9 Pneumonia due to COVID-19 virus U07.1; J12.82 Acid reflux K21.9 Hyperlipidemia E78.5
[2022-01-16 08:30] LABS: Basophils # (auto) 0.01 K/uL (0-0.2); Basophils % (auto) 0.1 %; Eosinophils # (auto) 0.18 K/uL (0-0.5); Eosinophils % (auto) 2.4 %; Hemoglobin 11.9 g/dL (12.0-16.0); Immature Granulocytes # (auto) 0.06 K/uL (0.00-0.02); Immature Granulocytes % (auto) 0.8 %; Lymphocytes # (auto) 2.59 K/uL (1.2-3.4); Lymphocytes % (auto) 34.3 %; Mean Corpuscular Hemoglobin 31.2 pg (25-34); Mean Corpuscular Volume 91.9 fL (80-100); Mean Platelet Volume 9.8 fL (7.4-10.4); Monocytes % (auto) 7.9 %; Neutrophils # (auto) 4.12 K/uL (1.4-6.5); Neutrophils % (auto) 54.5 %; Platelet Count 237 K/uL (130-400); RDW Coefficient of Variation 14.6 % (11.5-14.5); Red Blood Count 3.81 M/uL (4.2-5.4); White Blood Count 7.56 K/uL (4.8-10.8)
[2022-01-16] MEDS: FAMOTIDINE 20 MG TAB PO SCH ×2 (08:38→20:29)
[2022-01-16] MEDS: RIVAROXABAN 10 MG TABLET PO SCH (08:39)
[2022-01-16] MEDS: INSULIN GLARGINE SOLOSTAR 100 UNITS/ML 3 ML PEN SC SCH ×2 (08:39→21:41)
[2022-01-16] MEDS: INSULIN ASPART PER UNIT SC SCH ×4 (08:43→21:41)
[2022-01-16 08:53] LABS: Albumin Globulin Ratio 1.4 (0.9-2); Albumin Level 3.4 gm/dl (3.4-5.0); BUN Creatinine Ratio 29.3 (10-20); Bilirubin,Total 0.4 mg/dl (0.2-1.0); Calcium 8.6 mg/dl (8.5-10.1); Creatinine Clr Calc Pharmacy 149.7 ml/min; Est GFR (African American) 118.9 ml/min; Est GFR (Non-African American) 102.5 ml/min; Globulin 2.5 gm/dl (2.5-4.0); Potassium 4.1 mmol/L (3.5-5.1); Total Protein 5.9 gm/dl (6.0-8.3)
--- NOTE | 2022-01-16 12:39 | Surgery Progress Note ---
Date of Service January 16, 2022 Assessment & Plan (1) S/P excisional debridement: Plan: POD#2 I&D of left lower abdominal abscess WBC 7, VSS, pt afebrile Wound vac was placed yesterday, pt tolerating and it is holding good seal Surg path pending. Micro showing moderate counts mixed probable skin microbiota Complete course of abx, hospitalists planning on oral regimen for home Okay for dispo from our end once vac approved. F/u in wound clinic Admission and Anticipated Discharge Date Admission Date: January 13, 2022 Subjective Patient is feeling well. Has some post surgical pain, but it is much more tolerable and overall improved compared to when she came in. Tolerating diet. No issues with wound vac. Physical Exam Physical Exam: awake/alert, sitting up at bedside eating lunch Gastrointestinal (Abdomen): LLQ wound with vac in place, holding good seal, erythema vastly improved, soft Results & Data ([facility]) Vital Signs (Past 12 Hours) Vital Signs Temp Pulse Pulse Resp BP Pulse Ox 01/16/22 11:00 36.9 C 87 24 104/70 91 01/16/22 07:47 84 01/16/22 07:30 36.2 C L 85 24 108/74 92 01/16/22 04:30 36.7 C 89 20 116/69 94 01/16/22 01:46 92 H PG Care Time/CCT Total # of Minutes Spent Total Time Spent with Patient: Total time spent is greater than 50% in coordination of care (as documented) at patient's floor/unit and/or counseling patient: Coding Level of Care Code None Diagnoses S/P excisional debridement Z98.890
[2022-01-16] MEDS ORDERED: LINEZOLID CONSULT ACTIVE PRN (13:48)
[2022-01-16] MEDS: cephALEXin 500 MG CAP PO SCH ×2 (17:33→20:30)
[2022-01-16] MEDS: ACETAMINOPHEN 325 MG TAB PO PRN (20:28)
[2022-01-16] MEDS: LINEZOLID 600 MG TAB PO SCH (20:29)
[2022-01-16] MEDS: CETIRIZINE HCL 10 MG TABLET PO SCH (20:30)
[2022-01-16] MEDS: amLODIPine BESYLATE 5 MG TAB PO SCH (20:30)
[2022-01-16] MEDS: TRIAMTERENE/HCTZ 37.5/25MG CAP PO SCH (21:00)
[2022-01-17 06:29] LABS: Basophils # (auto) 0.01 K/uL (0-0.2); Basophils % (auto) 0.1 %; Eosinophils # (auto) 0.19 K/uL (0-0.5); Eosinophils % (auto) 2.1 %; Hematocrit (blood only) 36.1 % (37-47); Hemoglobin 11.8 g/dL (12.0-16.0); Immature Granulocytes # (auto) 0.06 K/uL (0.00-0.02); Immature Granulocytes % (auto) 0.7 %; Mean Corpuscular Hemoglobin 30.6 pg (25-34); Mean Corpuscular Hgb Conc 32.7 g/dL (32-36); Mean Corpuscular Volume 93.5 fL (80-100); Mean Platelet Volume 9.8 fL (7.4-10.4); Monocytes % (auto) 10.1 %; Neutrophils # (auto) 5.26 K/uL (1.4-6.5); Platelet Count 265 K/uL (130-400); RDW Coefficient of Variation 14.9 % (11.5-14.5); RDW Standard Deviation 50.3 fL (36.4-46.3); Red Blood Count 3.86 M/uL (4.2-5.4); White Blood Count 8.92 K/uL (4.8-10.8)
[2022-01-17 06:58] LABS: BUN Creatinine Ratio 21.4 (10-20); Calcium 8.6 mg/dl (8.5-10.1); Creatinine Clr Calc Pharmacy 133.5 ml/min; Est GFR (African American) 103.6 ml/min; Est GFR (Non-African American) 89.4 ml/min; Potassium 3.9 mmol/L (3.5-5.1)
--- NOTE | 2022-01-17 07:31 | Hospitalist Progress Note ---
Date of Service January 17, 2022 Assessment & Plan (1) Sepsis: Plan: Presented with hypotension, tachycardia, elevated lactate, and mild leukocytosis at 11, with source being abdominal wall abscess Given 1 L normal saline in the ER and blood pressure improved, lactate returned normal General surgery consulted POD#3 s/p I&D with Dr. Wilson OR cx with moderate counts mixed probable skin microbiota on preliminary -- monitor Vanco in ER, placed on Daptomycin IV while inpatient --> changed to Zyvox 600mg BID, keflex QID -- tolerating well (chosen given abx allergy to doxycycline and bactrim to cover for MRSA and zyvox to cover for CONS hx, as well as MRSA and en teroccocus species) --> Wilks checked by CM, cost <$4 for course --> additional 6 days to complete 10 day course WBC 11k on admission --> wnl on repeat Afebrile, Blood cultures NGTD Wound vac placed 01/15, changed 01/17. Awaiting insurance approval and hopefully home unit this afternoon. HH arranged. Visiting on thursday. Follow up with wound care Continue Tylenol prn pain (2) Abdominal wall abscess: Plan: As above With a history of coagulase-negative Staphylococcus in the past, no history of MRSA Monitor cx from OR -- prelim no growth, monitor Will need f/u Derm as well -- arranged for discussion possible HS (3) Hyponatremia: Plan: Mildly low at 130, asymptomatic on admission --Likely secondary to hypovolemia from sepsis as well as HCTZ use Home [place] evening,01/16, improvement in hydration status and Na 138 on BMP (4) Hypertension: Plan: With hypotension on arrival as above BP stable, home meds resumed and will continue to monitor, BP stable and improved (5) Obesity: Plan: BMI 64.7 Holding home Ozempic Should consider bariatric surgery as an outpatient -- has appointment with Dr. Westfall in follow up for discussion (6) Diabetes mellitus: Plan: Fairly well controlled with hemoglobin A1c 6.6% earlier this month She already took her Tresiba, start Lantus 30 units SQ twice daily for tomorrow morning NovoLog supplemental insulin with meals and at bedtime Hold home Ozempic, Tresiba, insulin lispro Tightened SSI 01/15 and BSGs much improved Monitor Follow up with endocrinology outpt (7) Pneumonia due to COVID-19 virus: Plan: Recent admission for such and discharged on 01/04 Still with evidence of infiltrates on chest x-ray but improved from previous She is not requiring oxygen and is overall much improved since her hospitalization for Covid-19 Needs follow-up chest x-ray in 3-4 more weeks to ensure resolution On room air (8) Acid reflux: Plan: Continue home Pepcid (9) Hyperlipidemia: Plan: Continue home statin Full code Her healthcare power of litigation attorney would be her sister in the event she is not able to make decisions for herself Plan: DVT prophylaxis-holding home Xarelto 10 mg daily for surgical drainage, resumed 01/15 and would recommend to complete 35 days post discharge from COVID-19 admission (she states she got 30 days, and will send additional if needed minus whatever given while inpatient to complete 35 days) Hopeful for d/c today if wound vac approved/arranged by CM Admission and Anticipated Discharge Date Admission Date: January 13, 2022 Supervising Physician Co-Signing Physician Notes Attending Attestation - Chart reviewed in detail, care plan d/w LAUREN Beth. I agree with the ma components of her documentation. See my attestation on d/c summary document with same date. Kei Julian MD Subjective patient evaluated this morning feeling well, no fever/chills some pain 6/10 but controlled with tylenol and she would like to stick with this, doesn't like how opiates make her feel. less spotting today. wound RN changed vac, awaiting insurance auth but if approved and delivered today will plan on discharge, otherwise will be here overnight. Tolerating oral antibiotics without difficulty. Questions/concerns addressed at this time. Review of Systems Review of Systems: All systems reviewed & are unremarkable except as noted in HPI & below Physical Exam Constitutional: WD/WN, vitals as above + morbidly obese Eyes: PERRL, conjunctivae normal, anicteric sclerae ENMT: external ear and nose normal, oropharynx normal Neck: trachea midline, no thyromegaly Respiratory: normal respiratory effort, lungs clear to auscultation Auscultation: + diminished lung sounds (throughout) Cardiovascular: RRR, no murmur, no edema Chest (Breasts): Chest: normal inspection of chest Gastrointestinal (Abdomen): normal bowel sounds, soft, nontender, no hepatosplenomegaly Musculoskeletal: Extremities: extremities normal to inspection; no cyanosis and no clubbing Skin: LLQ with significant improvement in erythema, wound vac in place and functioning (changed this morning), soft, non-tender Neurologic: moves all extremities and awake; no focal motor deficits Psychiatric: A+Ox3, euthymic affect Results & Data Results & Data ([facility]) Vital Signs (Past 12 Hours) Vital Signs Temp Pulse Pulse Resp BP Pulse Ox 01/17/22 03:23 36.9 C 83 18 124/85 94 01/16/22 23:43 87 01/16/22 22:11 36.7 C 85 16 113/75 92 Laboratory Results 01/17/22 01/17/22 01/16/22 Range/Units 06:02 06:02 21:20 WBC 8.92 (4.8-10.8) K/uL RBC 3.86 L (4.2-5.4) M/uL Hgb 11.8 L (12.0-16.0) g/dL Hct 36.1 L (37-47) % MCV 93.5 (80-100) fL MCH 30.6 (25-34) pg MCHC 32.7 (32-36) g/dL RDW Std Deviation 50.3 H (36.4-46.3) fL RDW Coeff of Zbigniew 14.9 H (11.5-14.5) % Plt Count 265 (130-400) K/uL MPV 9.8 (7.4-10.4) fL Immature Gran % (Auto) 0.7 % Neut % (Auto) 59.0 % Lymph % (Auto) 28.0 % Worth % (Auto) 10.1 % Eos % (Auto) 2.1 % Baso % (Auto) 0.1 % Neut # (Auto) 5.26 (1.4-6.5) K/uL Lymph # (Auto) 2.50 (1.2-3.4) K/uL Worth # (Auto) 0.90 H (0.11-0.59) K/uL Eos # (Auto) 0.19 (0-0.5) K/uL Baso # (Auto) 0.01 (0-0.2) K/uL Immature Gran # (Auto) 0.06 H (0.00-0.02) K/uL Sodium 138 (136-145) mmol/L Potassium 3.9 (3.5-5.1) mmol/L Chloride 105 (98-107) mmol/L Carbon Dioxide 25 (21-32) mmol/L Anion Gap 8 (3-11) BUN 18 (6-23) mg/dl Creatinine 0.84 (0.6-1.2) mg/dl Est Cr Clr Drug Dosing 133.5 ml/min Est GFR ( Amer) 103.6 ml/min Est GFR (Non-Af Amer) 89.4 ml/min BUN/Creatinine Ratio 21.4 H (10-20) Glucose 83 (70-99(Fasting)) mg/dl POC Glucose 110 H (70-99) mg/dl Calcium 8.6 (8.5-10.1) mg/dl Total Bilirubin (0.2-1.0) mg/dl AST (13-39) U/L ALT (7-52) U/L Alkaline Phosphatase (34-104) U/L Total Protein (6.0-8.3) gm/dl Albumin (3.4-5.0) gm/dl Globulin (2.5-4.0) gm/dl Albumin/Globulin Ratio (0.9-2) 01/16/22 01/16/22 01/16/22 Range/Units 20:26 16:31 11:17 WBC (4.8-10.8) K/uL RBC (4.2-5.4) M/uL Hgb (12.0-16.0) g/dL Hct (37-47) % MCV (80-100) fL MCH (25-34) pg MCHC (32-36) g/dL RDW Std Deviation (36.4-46.3) fL RDW Coeff of Zbigniew (11.5-14.5) % Plt Count (130-400) K/uL MPV (7.4-10.4) fL Immature Gran % (Auto) % Neut % (Auto) % Lymph % (Auto) % Worth % (Auto) % Eos % (Auto) % Baso % (Auto) % Neut # (Auto) (1.4-6.5) K/uL Lymph # (Auto) (1.2-3.4) K/uL Worth # (Auto) (0.11-0.59) K/uL Eos # (Auto) (0-0.5) K/uL Baso # (Auto) (0-0.2) K/uL Immature Gran # (Auto) (0.00-0.02) K/uL Sodium (136-145) mmol/L Potassium (3.5-5.1) mmol/L Chloride (98-107) mmol/L Carbon Dioxide (21-32) mmol/L Anion Gap (3-11) BUN (6-23) mg/dl Creatinine (0.6-1.2) mg/dl Est Cr Clr Drug Dosing ml/min Est GFR ( Amer) ml/min Est GFR (Non-Af Amer) ml/min BUN/Creatinine Ratio (10-20) Glucose (70-99(Fasting)) mg/dl POC Glucose 89 118 H 121 H (70-99) mg/dl Calcium (8.5-10.1) mg/dl Total Bilirubin (0.2-1.0) mg/dl AST (13-39) U/L ALT (7-52) U/L Alkaline Phosphatase (34-104) U/L Total Protein (6.0-8.3) gm/dl Albumin (3.4-5.0) gm/dl Globulin (2.5-4.0) gm/dl Albumin/Globulin Ratio (0.9-2) 01/16/22 01/16/22 01/16/22 Range/Units 08:12 08:12 07:37 WBC 7.56 (4.8-10.8) K/uL RBC 3.81 L (4.2-5.4) M/uL Hgb 11.9 L (12.0-16.0) g/dL Hct 35.0 L (37-47) % MCV 91.9 (80-100) fL MCH 31.2 (25-34) pg MCHC 34.0 (32-36) g/dL RDW Std Deviation 49.0 H (36.4-46.3) fL RDW Coeff of Zbigniew 14.6 H (11.5-14.5) % Plt Count 237 (130-400) K/uL MPV 9.8 (7.4-10.4) fL Immature Gran % (Auto) 0.8 % Neut % (Auto) 54.5 % Lymph % (Auto) 34.3 % Worth % (Auto) 7.9 % Eos % (Auto) 2.4 % Baso % (Auto) 0.1 % Neut # (Auto) 4.12 (1.4-6.5) K/uL Lymph # (Auto) 2.59 (1.2-3.4) K/uL Worth # (Auto) 0.60 H (0.11-0.59) K/uL Eos # (Auto) 0.18 (0-0.5) K/uL Baso # (Auto) 0.01 (0-0.2) K/uL Immature Gran # (Auto) 0.06 H (0.00-0.02) K/uL Sodium 138 (136-145) mmol/L Potassium 4.1 (3.5-5.1) mmol/L Chloride 105 (98-107) mmol/L Carbon Dioxide 28 (21-32) mmol/L Anion Gap 5 (3-11) BUN 22 (6-23) mg/dl Creatinine 0.75 (0.6-1.2) mg/dl Est Cr Clr Drug Dosing 149.7 ml/min Est GFR ( Amer) 118.9 ml/min Est GFR (Non-Af Amer) 102.5 ml/min BUN/Creatinine Ratio 29.3 H (10-20) Glucose 85 (70-99(Fasting)) mg/dl POC Glucose 93 (70-99) mg/dl Calcium 8.6 (8.5-10.1) mg/dl Total Bilirubin 0.4 (0.2-1.0) mg/dl AST 13 (13-39) U/L ALT 31 (7-52) U/L Alkaline Phosphatase 70 (34-104) U/L Total Protein 5.9 L (6.0-8.3) gm/dl Albumin 3.4 (3.4-5.0) gm/dl Globulin 2.5 (2.5-4.0) gm/dl Albumin/Globulin Ratio 1.4 (0.9-2) PG Care Time/CCT Total # of Minutes Spent Total Time Spent with Patient: Total time spent is greater than 50% in coordination of care (as documented) at patient's floor/unit and/or counseling patient: Coding Level of Care Code 86938 Subseq Hosp Care Lvl 2 Diagnoses Sepsis A41.9 Abdominal wall abscess L02.211 Hyponatremia E87.1 Hypertension I10 Obesity E66.9 Diabetes mellitus E11.9 Pneumonia due to COVID-19 virus U07.1; J12.82 Acid reflux K21.9 Hyperlipidemia E78.5
--- NOTE | 2022-01-17 07:49 | Surgery Progress Note ---
Date of Service January 17, 2022 Assessment & Plan (1) S/P excisional debridement: Plan: No acute events overnight Wound VAC in place Antibiotics per medical team Follow-up with wound clinic Does not necessarily have to come into the surgery clinic unless wound clinic feels necessary Hopefully discharge home today Admission and Anticipated Discharge Date Admission Date: January 13, 2022 Results & Data ([facility]) Vital Signs (Past 12 Hours) Vital Signs Temp Pulse Pulse Resp BP Pulse Ox 01/17/22 03:23 36.9 C 83 18 124/85 94 01/16/22 23:43 87 01/16/22 22:11 36.7 C 85 16 113/75 92 PG Care Time/CCT Total # of Minutes Spent Total Time Spent with Patient: Total time spent is greater than 50% in coordination of care (as documented) at patient's floor/unit and/or counseling patient: Coding Level of Care Code None Diagnoses S/P excisional debridement Z98.890
[2022-01-17] MEDS: cephALEXin 500 MG CAP PO SCH ×2 (08:49→12:52)
[2022-01-17] MEDS: FAMOTIDINE 20 MG TAB PO SCH (08:50)
[2022-01-17] MEDS: RIVAROXABAN 10 MG TABLET PO SCH (08:50)
[2022-01-17] MEDS: LINEZOLID 600 MG TAB PO SCH (08:50)
[2022-01-17] MEDS: INSULIN ASPART PER UNIT SC SCH ×2 (09:42→12:53)
[2022-01-17] MEDS: INSULIN GLARGINE SOLOSTAR 100 UNITS/ML 3 ML PEN SC SCH (09:42)
[2022-01-17] MEDS: ACETAMINOPHEN 325 MG TAB PO PRN (09:46)
--- NOTE | 2022-01-17 12:22 | Discharge Summary ---
Date of Service January 17, 2022 Admission HPI Per Admitting Provider This patient is a 36-year-old female with a history of morbid obesity with BMI of 64, recent Covid-19 pneumonia requiring hospitalization, HTN, DM 2, GERD, hyperlipidemia, who presents to the ER with worsening infection at a site in her pannus on the left lower side over the last week or so. She has not had any fevers or drainage from the site, however it is tender to the touch. She has a history of skin abscesses in the past but no history of MRSA. She does have a history of coagulase-negative Staphylococcus growing from prior abdominal wound. She denies any chest pains or shortness of breath except some mild dyspnea on exertion since discharge from the hospital with Covid. Has had a mild residual cough but overall improving from her Covid-19. Denies any abdominal pains or constipation, no diarrhea, no nausea/vomiting. Did feel slightly lightheaded today. She has continued to take her antihypertensives and is not checking her blood pressure at home. In the ER, she was found to be hypotensive and tachycardic, but afebrile. She had a mildly elevated WBC count at 11, was hyponatremic, and had an elevated lactate of 2.2. She was given 1 L of normal saline and a dose of IV vancomycin and will be admitted for surgical consultation and further treatment for sepsis with abscess as a source. Of note, she has been taking low-dose Xarelto 10 mg daily since her discharge for Covid-19 for VTE prophylaxis and her last dose was at 9 PM on 01/12. Admission Exam Per Admitting Provider Constitutional: WD/WN, vitals as above + morbidly obese Eyes: PERRL, conjunctivae normal, anicteric sclerae ENMT: external ear and nose normal, oropharynx normal Neck: trachea midline, no thyromegaly Respiratory: normal respiratory effort, lungs clear to auscultation Auscu ltation: + diminished lung sounds (throughout) Cardiovascular: RRR, no murmur, no edema Chest (Breasts): Chest: normal inspection of chest Gastrointestinal (Abdomen): normal bowel sounds, soft, nontender, no hepatosplenomegaly Musculoskeletal: Extremities: extremities normal to inspection; no cyanosis and no clubbing Skin: Left lower abdomen with large fluctuant mass that is erythematous, measuring approximately 4 cm in diameter, tender to the touch No other areas of abscess or cellulitis elsewhere on the body, mild intertrigo under right breast Bilateral plantar surfaces of feet with thick callus and plantar warts Neurologic: moves all extremities and awake; no focal motor deficits Psychiatric: A+Ox3, euthymic affect Genitourinary: normal external appearance Lymphatic: no lymphedema Principal Diagnosis Sepsis, Abdominal Abscess Discharge Exam Constitutional WD/WN, vitals as above + morbidly obese Eyes PERRL, conjunctivae normal, anicteric sclerae ENMT external ear and nose normal, oropharynx normal Neck trachea midline, no thyromegaly Respiratory normal respiratory effort, lungs clear to auscultation Auscultation: + diminished lung sounds (throughout) Cardiovascular RRR, no murmur, no edema Chest (Breasts) Chest: normal inspection of chest Gastrointestinal (Abdomen) normal bowel sounds, soft, nontender, no hepatosplenomegaly see under skin below Musculoskeletal Extremities: extremities normal to inspection; no cyanosis and no clubbing Skin LLQ with significant improvement in erythema, wound vac in place and functioning (changed this morning), soft, non-tender Neurologic moves all extremities and awake; no focal motor deficits Psychiatric A+Ox3, euthymic affect Genitourinary normal external appearance Lymphatic no lymphedema Discharge Data Allergies Allergy/AdvReac Type Severity Reaction Status Date / Time doxycycline Allergy Severe hives Verified 01/13/22 10:00 Estrogens Allergy Severe ANAPHYLAXIS Verified 01/13/22 10:00 WITH CONTROL PILLS lithium Allergy Severe ANAPHYLAXIS Verified 01/13/22 10:00 sulfamethoxazole Allergy Severe red skin, Verified 01/13/22 10:00 [From Bactrim] itchy trimethoprim [From Bactrim] Allergy Severe red skin, Verified 01/13/22 10:00 itchy SOAPCLEAN Allergy Mild RASH Uncoded 01/13/22 10:00 (FACIAL CLEANSERS) Consultations 01/13/22 11:20 Consult General Surgery Stat 01/13/22 11:42 ED Decision to Admit Stat Procedures Performed Operation Date: 01/14/22 10:10 Actual Procedures p Incision and Drainage Abdominal Wall Abscess, Debridement - Jeet Wilson MD, FACS Ordered Studies Chest X-Ray 01/13/22 08:08 XR chest 1V portable HISTORY: 36 years-old Female SEPSIS acute sepsis COMPARISON: Chest radiograph 12/29/2021 TECHNIQUE: Portable AP view of the chest FINDINGS: Cardiac silhouette is enlarged. Reticular interstitial opacities with patchy bilateral alveolar opacities have mild to moderately improved. No pneumothorax or large pleural effusion. Bones appear grossly intact. IMPRESSION: Mild to moderately improved aeration of the lungs compatible with resolving pneumonia. Continued follow-up recommended. ACT 112: Negative or not required by law. The above report was generated using voice recognition software. It may contain grammatical, syntax or spelling errors. Electronically signed by: Arnoldo Sol M.D. 01/13/2022 8:28 AM Hospital Course (1) Sepsis: Presented with hypotension, tachycardia, elevated lactate, and mild leukocytosis at 11, with source being abdominal wall abscess Given 1 L normal saline in the ER and blood pressure improved, lactate returned normal General surgery consulted s/p I&D with Dr. Wilson OR cx with moderate counts mixed probable skin microbiota on preliminary -- monitor Vanco in ER, placed on Daptomycin IV while inpatient --> changed to Zyvox 600mg BID, keflex QID -- tolerating well (chosen given abx allergy to doxycycline and bactrim to cover for MRSA and zyvox to cover for CONS hx, as well as MRSA and enteroccocus species) --> Wilks checked by , cost <$4 for course --> additional 6 days to complete 10 day course WBC 11k on admission --> wnl on repeat Afebrile, Blood cultures NGTD Wound vac placed 01/15, changed 01/17. Awaiting insurance approval and hopefully home unit this afternoon --> approved, unit delivered to nursing station and aced on patient HH arranged. Visiting on thursday for wound vac change. Wound clinic also arranging follow-up Continue Tylenol prn pain (2) Abdominal wall abscess: As above With a history of coagulase-negative Staphylococcus in the past, no history of MRSA Monitor cx from OR -- prelim no growth, monitor Will need f/u Derm as well -- arranged for discussion possible HS Abx with Zyvox and Keflex as above to complete course I certify that this patient is under my care and that I, or a physicians psychological assistant working with me, had a face to-face encounter that meets the home health [id number] encounter requirements with this patient. The encounter with the patient was in whole, or in part, for the following medical condition, which is the primary reason for home health care (list medical condition): wound vac I certify that, based on my findings, the following services are medically necessary home health services: My clinical findings support the need for the above services because: Further, I certify that my clinical findings support that this patient is homebound (i.e. absences from home require considerable and taxing effort and are for medical reasons or taoism services or infrequently or of short duration when for other reasons) because: Transportation Assistance/Unable to Leave Home Unassisted Certification for Home Health Services: Based on the above findings, I certify that this patient is confined to the home and needs intermittent residential care, physical therapy and/or speech therapy or continues to need occupational therapy. The patient is under my care, and I have initiated the establishment of the plan of care. This patient will be followed by a physician who will periodically review the plan of care. (3) Hyponatremia: Mildly low at 130, asymptomatic on admission --Likely secondary to hypovolemia from sepsis as well as HCTZ use Home Dyazide resumed evening,01/16, improvement in hydration status and Na 138 on BMP (4) Hypertension: With hypotension on arrival as above BP stable, home meds resumed and will continue to monitor, BP stable and improved (5) Obesity: BMI 64.7 Holding home Ozempic Should consider bariatric surgery as an outpatient -- has appointment with Dr. Westfall in follow up for discussion (6) Diabetes mellitus: Fairly well controlled with hemoglobin A1c 6.6% earlier this month She already took her Tresiba, start Lantus 30 units SQ twice daily for tomorrow morning NovoLog supplemental insulin with meals and at bedtime Hold home Ozempic, Tresiba, insulin lispro Tightened SSI 01/15 and BSGs much improved Monitor Follow up with endocrinology outpt (7) Pneumonia due to COVID-19 virus: Recent admission for such and discharged on 01/04 Still with evidence of infiltrates on chest x-ray but improved from previous She is not requiring oxygen and is overall much improved since her hospitalization for Covid-19 Needs follow-up chest x-ray in 3-4 more weeks to ensure resolution with PCP On room air (8) Acid reflux: Continue home Pepcid (9) Hyperlipidemia: Continue home statin Full code Her healthcare power of management professional would be her sister in the event she is not able to make decisions for herself DVT prophylaxis-holding home Xarelto 10 mg daily for surgical drainage, resumed 01/15 and would recommend to complete 35 days post discharge from COVID- 19 admission (she states she got 30 days, and will send additional if needed minus whatever given while inpatient to complete 35 days) Hopeful for d/c today if wound vac approved/arranged by CM Total Time Total Time Spent Total Time Spent (In Minutes): 45 Discharge Plan Discharge Items Patient Disposition: Home - Home Health Services Reason For Visit: ABDONINAL WALL ABSCESS Discharge Diagnosis: Sepsis, Abdominal Abscess Goals: You have been hospitalized for an urgent problem which required surgery. During your stay at [facility], we have made an effort to correct the problem that brought you to the hospital while keeping you as comfortable as possible. Surgery and medications were used to bring your condition under control and your discharge instructions will include directions for any medications you should take after leaving the hospital. Please make sure to follow the advice of your surgeon regarding follow up with the surgeon and with your primary care provider. Activity: As commented below Non-emergency contact: Primary Care Provider and Surgeon Call non-emergency contact if: you have any medication questions, your symptoms worsen, your pain is not controlled and you have a fever Follow-up/Referrals: Jeet Wilson MD, FACS [Physician] - Oliver Sheikh MD [Primary Care Provider] - 01/22/22 4:00 pm (Apppointment will be with DIEGO Butterfield) Shailesh Westfall MD [Physician] - 02/04/22 8:30 am Lindy Persaud PA-C [Physician Informatics Application Analyst] - 02/27/22 10:30 am (Dermatology) Hitesh Brito PA-C [Physician Informatics Application Analyst] - 01/20/22 8:30 am (Endocrinology) Diet: Heart Healthy Addtl Attending Provider Instructions: You have been hospitalized with sepsis, felt secondary to your abdominal wall abscess. Surgery was consulted and you underwent I&D with Dr Wilson. Cultures are no growth to date, and this could also be related to an underlying Hidradenitis Suppurativa as discussed, and follow up with Dermatology has been arranged for discussion. You are being sent home with a prescription for Zyvox 600mg by mouth TWICE DAILY for an additional 6 days (12 doses) to complete 10 day course as well as Keflex 500mg by mouth FOUR TIMES daily for the same duration to complete the ten day course. This will ensure coverage for MRSA, enteroccocus and coag negative staph species. You started these and tolerated well while in the hospital. You may want to take a probiotic to prevent diarrhea. If you develop diarrhea >10x/day please alert your PCP. You had a wound vac place and are being sent home with a unit and will need follow up with wound care. # for wound care center is [phone] and this should be changed every Thursday, Thursday, Thursday which can be done by home health as arranged. You should have follow up with Dr Wilson to monitor your progress. You should also continue the daily Xarelto to completion for DVT prevention given recent COVID-19 infection. You should also follow up with your PCP in the next week to monitor your progress and should get a chest x ray in a month to ensure resolution. You have follow ups with Endocrinology and Dr Westfall and these are listed on your discharge instructions. You should return to the ER if you have any increased pain/redness/swelling, fever, chest pain, shortness of breath or for any other symptoms concerning for you. It has been a pleasure being a part of the medical team taking care of you while in the hospital. Take care! Addtl Warehouse Shift Supervisor Provider Instructions: SPECIAL CARE INSTRUCTIONS: * Cover incisions and change daily for comfort/drainage. * May use ibuprofen for pain as tolerated. * Expect some swelling and bruising. Call your doctor if: * Temperature above 101 degrees * Pain not relieved by pain medicine ordered * There is increased drainage or redness from any incision * You have any unanswered questions or concerns [phone]. FOLLOW UP VISIT: If not already scheduled, please call the office for a follow-up visit. OFFICE PHONE NUMBER: Dr. Wilson Office Pending Studies at Discharge: Yes Studies:: wound cultures -- normal luis on preliminary results Stand-Alone Forms: My [facility] Medications and DC Order Prescriptions: New linezolid 600 mg Tablet 600 mg PO BID 6 Days Qty: 12 RF: 0 cephalexin 500 mg Capsule 500 mg PO QID 6 Days Qty: 24 RF: 0 Continued (DME) OneTouch Ultra Blue Test Strip Strip See Rx Instructions .ROUTE .MEDSUPPLY Qty: 300 RF: 3 mecobalamin (vitamin B12) 1,000 mcg tablet,chewable 1,000 mcg PO DAILY Qty: 30 RF: 0 lisinopril 10 mg tablet 10 mg PO DAILY Qty: 90 RF: 3 fluconazole [Diflucan] 150 mg tablet 150 mg PO .weekly 180 Days Qty: 24 RF: 0 simvastatin 20 mg tablet 20 mg PO DAILY Qty: 90 RF: 3 famotidine 20 mg tablet 20 mg PO BID Qty: 180 RF: 3 (DME) pen needle, diabetic [1st Tier Unifine Pentips] 31 gauge x 1/4" needle See Rx Instructions .ROUTE .MEDSUPPLY Qty: 200 RF: 3 (DME) lancets [Personal MedicineTouch Delica Plus Lancet] 30 gauge misc See Rx Instructions .ROUTE .MEDSUPPLY Qty: 300 RF: 3 triamterene-hydrochlorothiazid 37.5-25 mg tablet 1 tab PO BID Qty: 60 RF: 5 (DME) blood-glucose meter [Personal MedicineTouch Ultra2 Meter] Kit See Rx Instructions .ROUTE .MEDSUPPLY RF: 0 Xarelto 10 mg tablet 10 mg PO DAILY 30 Days Qty: 30 RF: 0 cetirizine 10 mg tablet 10 mg PO HS RF: 0 medroxyprogesterone [Provera] 2.5 mg tablet 2.5 mg PO DAILY RF: 0 amlodipine [Norvasc] 5 mg tablet 5 mg PO HS RF: 0 Tresiba FlexTouch U-200 200 unit/mL (3 mL) insulin pen 74 unit subcut DAILY@0600 RF: 0 Lyumjev KwikPen U-100 Insulin 100 unit/mL insulin pen 4 unit subcut TIDM RF: 0 Ozempic 1 mg/dose (4 mg/3 mL) pen injector 1 mg subcut WK RF: 0 Discharge Orders: Discharge Order (Routine); Ordered 01/17/22 Ordered By: Marge Allen/Other Patient Handouts: 5 Steps for Eating Healthier Admission Data Admit Date/Time: 01/13/22 12:34 Attending Provider: Kei Julian Admit Provider: Jennifer Bah Primary Care Provider: Oliver Sheikh Other Providers: Jeet Wilson ; Jennifer Bah ; [facility],Home Healthcare Other Interventions: Discharge Summary Assessment (RN) Last Done: 01/17/22 15:13 Coding Level of Care Code D/C DAY MANAGEMENT >30 MINS Diagnoses Sepsis A41.9 Abdominal wall abscess L02.211 Hyponatremia E87.1 Hypertension I10 Obesity E66.9 Diabetes mellitus E11.9 Pneumonia due to COVID-19 virus U07.1; J12.82 Acid reflux K21.9 Hyperlipidemia E78.5
[2022-01-17] MEDS: TRIAMTERENE/HCTZ 37.5/25MG CAP PO SCH (13:13)
== END 2022-01-17 16:05 | disposition home health service (06) | DRG 854 ==
LOC: ED 07:50 → EDINP 12:34 → SUATTDRO 12:34 → 2N 18:32

== ENCOUNTER 2025-08-01 12:29 | Inpatient (IN) ==
[2025-08-01 13:32] LABS: Hematocrit (blood only) 44.9 % (37.0-47.0); Hemoglobin 14.5 g/dl (12.0-16.0); Immature Granulocytes # (auto) 0.09 K/uL (0.01-0.20); Immature Granulocytes % (auto) 1.2 %; Mean Corpuscular Hemoglobin 29.2 pg (25.0-34.0); Mean Corpuscular Volume 90.3 fL (80.0-100.0); Platelet Count 210 K/uL (130-400); RDW Standard Deviation 45.1 fL (36.4-46.3); Red Blood Count 4.97 M/uL (4.20-5.40); White Blood Count 7.68 K/ul (4.8-10.8)
--- NOTE | 2025-08-01 13:51 | Emergency Department Note ---
History of Present Illness General Chief complaint: Illness Stated complaint: ABCESS CHILLS FEVER Time Seen by Provider: 08/01/25 13:33 History of Present Illness Maximum Pain Intensity: 7 This is a 40-year-old female who presents to the emergency department via private vehicle with complaints of "abscess, chills, fever". The patient states that about 5 days ago she noticed some discoloration to the right axillary region. She notes this is consistent with previous abscesses. She has a history of at bedtime. She states that yesterday she presented to an urgent care and the right axillary abscess underwent incision and drainage. She notes that there was bleeding and purulence. She states that no antibiotics were started. Since then she notes feeling unwell including chills, fever. She notes history of sepsis secondary to abscess previously and was concerned there for prompting arrival here today. Patient has history of diabetes. Current pain 06/01. Home Medications Medication Instructions Recorded Confirmed Type blood-glucose meter ([employer] EntertainmentTouch 10/09/21 07/31/25 History Ultra2 Meter kit) lumateperone 42 mg capsule 42 mg PO HS 09/23/22 08/01/25 History (Caplyta) magnesium oxide 400 mg PO QAM 05/08/23 08/01/25 History syringe with needle 3 mL 22 x 1 #4 ea 06/01/23 07/31/25 Rx 1/2" (BD SafetyGlide Syringe) flash glucose sensor (FreeStyle #1 ea 06/09/23 07/31/25 Rx Gogo 2 Sensor kit) bupropion HCl 300 mg 24 hr tablet, 300 mg PO QAM 06/17/23 08/01/25 History extended release blood sugar diagnostic (Wazzle Entertainmentuch #300 ea 07/06/23 07/31/25 Rx Ultra Test strips) lancets 30 gauge (OneTouch Delica #300 ea 07/06/23 07/31/25 Rx Plus Lancet) pen needle, diabetic 31 gauge x #400 ea 04/19/24 07/31/25 Rx 1/4" (1st Tier Unifine Pentips) fluconazole 150 mg tablet 150 mg PO WK preventatively 10/10/24 08/01/25 History simvastatin 20 mg tablet 20 mg PO QAM #90 tabs 11/15/24 08/01/25 Rx famotidine 20 mg tablet 20 mg PO BID #180 tabs 12/05/24 08/01/25 Rx acetazolamide 250 mg tablet 750 mg (3 x 250 mg) PO BID 01/04/25 08/01/25 Rx diuretic #60 tabs medroxyprogesterone 2.5 mg tablet 2.5 mg PO QAM #90 tabs 01/20/25 08/01/25 Rx (Provera) semaglutide 2 mg/dose (8 mg/3 mL) 2 mg (0.75 mL) subcut WK Diabetes 02/23/25 08/01/25 Rx subcutaneous pen injector 90 days #9 mL cyclobenzaprine 5 mg tablet 5 mg PO TID PRN muscle spasm #30 03/15/25 08/01/25 Rx tabs lisinopril 10 mg tablet 10 mg PO QAM #90 tabs 04/04/25 08/01/25 Rx eletriptan 40 mg tablet See Rx Instructions PO .COMPLEX 04/13/25 08/01/25 Rx PRN migraine headache 30 days #9 tabs cetirizine 10 mg tablet 10 mg PO QAM #90 tabs 05/11/25 08/01/25 Rx erenumab-aooe 140 mg/mL 140 mg subcut MONTHLY #1 mL 07/03/25 08/01/25 Rx subcutaneous auto-injector (Aimovig Autoinjector) gabapentin 100 mg capsule 100 - 200 mg (1 - 2 x 100 mg) PO 07/20/25 08/01/25 Rx BID PRN leg pain #60 caps cholecalciferol (vitamin D3) 1,250 50,000 unit PO DIRECTED 08/01/25 08/01/25 History mcg (50,000 unit) capsule insulin glargine 100 unit/mL (3 70 unit subcut QPM 08/01/25 08/01/25 History mL) subcutaneous pen (Basaglar KwikPen U-100 Insulin) spironolactone 50 mg tablet 50 mg PO QAM 08/01/25 08/01/25 History Allergies Allergy/AdvReac Type Severity Reaction Status Date / Time doxycycline Allergy Severe hives Verified 07/31/25 12:19 Estrogens Allergy Severe ANAPHYLAXIS Verified 07/31/25 12:19 WITH CONTROL PILLS lithium Allergy Severe ANAPHYLAXIS Verified 07/31/25 12:19 sulfamethoxazole Allergy Severe red skin, Verified 07/31/25 12:19 [From Bactrim] itchy trimethoprim [From Bactrim] Allergy Severe red skin, Verified 07/31/25 12:19 itchy clindamycin Allergy Intermediate Rash Verified 07/31/25 12:19 adalimumab [From Humira] Allergy Mild Rash Verified 07/31/25 12:19 cephalexin [From Keflex] Allergy Verified 08/01/25 13:44 methylprednisolone AdvReac Mild Rash Verified 07/31/25 12:19 B 12 AdvReac Intermediate Diarrhea Uncoded 07/31/25 12:19 Past Med/Surg History Problem List (Updated 08/01/25 @ 21:38 by Chevy Kraus PA-C) Cellulitis of axilla, right (Acute) Abscess of right axilla Dysuria Chronic abdominal pain Encounter for cosmetic procedure Neurogenic claudication Low back pain radiating to right leg Migraine Headache Vitamin D deficiency Vitamin B12 deficiency Headache, chronic daily Cervical high risk HPV (human papillomavirus) test positive Hidradenitis suppurativa (Acute) Pelvic cramping Dependent edema Dietary counseling and surveillance Type 2 diabetes mellitus treated with insulin Metabolic syndrome Encounter for pre-operative examination Hyponatremia COVID-19 Snoring TSH elevation Morbid obesity (Chronic) Unspecified papilledema "Clinically improved, continue to follow with Ophthalmology, continue acetazolamide 750 mg b.i.d"-follows with [facility] Hyperlipidemia Anxiety and depression Recurrent infection of skin Seasonal allergies Acid reflux Fatty liver Hypertension Medical History Hidradenitis suppurativa Hx MRSA infection in an abdominal wound 05/2023, tested at [facility]. treated with IV abx at the time. no current issues Morbid obesity with BMI of 60.0-69.9, adult History of pneumonia 12/2021--covid + and hospitalized at [facility] for 6 days, on oxygen at that time--resolved. Chronic headaches Hx of migraines Fatty liver Acid reflux Anxiety Increased cerebrospinal fluid production unknown cause - had lumbar puncture, states this is the cause of the papilledema History of lumbar puncture (04/03/21) at [facility] Papilledema "Clinically improved, continue to follow with Ophthalmology, continue acetazolamide 750 mg b.i.d" [place] with Dr Crisostomo [place] [facility] [place] Hyperlipidemia Hypertension Suspected sleep apnea never tested, pt reports she does snore loudly and can wake herself up at times throughout the night. History of COVID-19 12/2021-> hospitalized at [facility] for covid pneumonia for ~6 days. resolved. 07/09/24 home test, f/u with pcp for SOB and cough. given nebulizer treatment at appointment. doing well now, all resolved. Diabetes mellitus, type 2 IDDM Multiple pulmonary nodules High risk HPV infection per patient, no treatment? Depression Allergic rhinitis History of blood transfusion 2009 History of anemia Bipolar and related disorder Post traumatic stress disorder Heart murmur follows with PCP Surgical History Hx laparoscopic cholecystectomy (05/21/23) Laparoscopic Cholecystectomy, Liver Biopsy(Not Applicable) - Gustavo Mo, DO History of incision and drainage (01/14/22) Incision, drainage and debridement of left lower quadrant abdominal wall abscess, which was greater than 20 cm2 and contained skin and subcutaneous tissue 01/14/2022 Dr. Wilson Hx of tonsillectomy Family History Grandmother (Paternal) Breast cancer Grandmother (Maternal) Diabetes Colorectal cancer Mother Diabetes Gallbladder problem Father Diabetes Coronary heart disease, Onset Age: 57 Depression Heart disease Sister Gallbladder problem Other Family history non-contributory No family history of adverse response to anesthesia Denies family history of Ovarian cancer Prostate cancer Social History Smoking Status: Former smoker Tobacco Type: Cigarettes Age Started Using Tobacco: 0; Age Quit Using Tobacco: 0; packs per day: 0; Second Hand Exposure: No; Do You Dip or Chew Tobacco: No; Hx Alcohol Use: Yes Alcohol type: wine Alcohol Intake Frequency: Monthly or Less Hx Substance Use: No Preferred Language: Marshallese Communication Ability: Effective Visual Impairment: No Limitations Hearing Ability: Normal 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 Beliefs That Will Affect Care: None marital status: Single Current Living Situation: Family Current Living Situation Comment: Lives w/sister Coty and 2 cats current occupational status: disabled How many Children do You have: 0 Feels Safe at Home: Yes Childhood Exposure to Second-Hand Smoke: Yes Diet: diabetic, ideal protein and low carbohydrate caffeine: Yes during the past year weight has: decreased > 10 lbs Dental Care, Regularly: Yes Physical Activity Frequency: 1-2 Times per Week Seatbelt Use: always Sunscreen Use: Yes Gender Identity: Female Assistive Devices: Glasses Review of Systems A total of 10 systems reviewed and were otherwise negative Physical Exam Vital Signs Vital Signs - 24 hr 08/01/25 12:44 08/01/25 14:36 08/01/25 14:42 Temperature 37.3 C Temperature Source Temporal Artery Scan Pulse Rate 115 H 102 H Pulse Rate from SpO2 Sensor Respiratory Rate 18 20 Respiratory Effort / Characteristics Non-Labored Spontaneous Respiratory Depth Normal Blood Pressure 124/76 Blood Pressure Mean 92 Pulse Oximetry 97 92 94 Oxygen Delivery Method Room Air Room Air Room Air Sepsis Recent Fever Within 48 Hours No Sepsis New/Unexplained Change in Mental Status No Sepsis Action Taken by Nursing No Action Required 08/01/25 14:44 08/01/25 14:51 08/01/25 15:00 Temperature Temperature Source Pulse Rate 103 H 102 H 100 H Pulse Rate from SpO2 Sensor 102 H 101 H Respiratory Rate 21 19 Respiratory Effort / Characteristics Respiratory Depth Blood Pressure Blood Pressure Mean Pulse Oximetry 95 95 Oxygen Delivery Method Sepsis Recent Fever Within 48 Hours Sepsis New/Unexplained Change in Mental Status Sepsis Action Taken by Nursing 08/01/25 15:00 08/01/25 15:00 08/01/25 15:00 Temperature Temperature Source Pulse Rate Pulse Rate from SpO2 Sensor Respiratory Rate Respiratory Effort / Characteristics Respiratory Depth Blood Pressure 89/67 L 89/67 L 89/67 L Blood Pressure Mean 83 83 83 Pulse Oximetry Oxygen Delivery Method Sepsis Recent Fever Within 48 Hours Sepsis New/Unexplained Change in Mental Status Sepsis Action Taken by Nursing 08/01/25 15:00 08/01/25 15:00 08/01/25 15:15 Temperature Temperature Source Pulse Rate 97 H Pulse Rate from SpO2 Sensor 96 H Respiratory Rate 13 Respiratory Effort / Characteristics Respiratory Depth Blood Pressure 89/67 L 89/67 L Blood Pressure Mean 83 83 Pulse Oximetry 97 Oxygen Delivery Method Sepsis Recent Fever Within 48 Hours Sepsis New/Unexplained Change in Mental Status Sepsis Action Taken by Nursing 08/01/25 15:18 08/01/25 15:19 08/01/25 15:21 Temperature Temperature Source Pulse Rate 95 H 104 H Pulse Rate from SpO2 Sensor 98 H 104 H Respiratory Rate 20 15 Respiratory Effort / Characteristics Respiratory Depth Blood Pressure 96/68 L Blood Pressure Mean 80 Pulse Oximetry 96 97 Oxygen Delivery Method Sepsis Recent Fever Within 48 Hours Sepsis New/Unexplained Change in Mental Status Sepsis Action Taken by Nursing 08/01/25 15:24 08/01/25 15:27 08/01/25 15:27 Temperature Temperature Source Pulse Rate 96 H 96 H Pulse Rate from SpO2 Sensor Respiratory Rate 25 H 20 Respiratory Effort / Characteristics Respiratory Depth Blood Pressure 126/79 126/79 Blood Pressure Mean 98 98 Pulse Oximetry 96 Oxygen Delivery Method Sepsis Recent Fever Within 48 Hours Sepsis New/Unexplained Change in Mental Status Sepsis Action Taken by Nursing 08/01/25 15:27 08/01/25 15:30 08/01/25 15:31 Temperature Temperature Source Pulse Rate 100 H Pulse Rate from SpO2 Sensor 102 H Respiratory Rate 15 Respiratory Effort / Characteristics Respiratory Depth Blood Pressure 126/79 123/72 Blood Pressure Mean 98 86 Pulse Oximetry 96 Oxygen Delivery Method Sepsis Recent Fever Within 48 Hours Sepsis New/Unexplained Change in Mental Status Sepsis Action Taken by Nursing 08/01/25 15:31 08/01/25 15:31 08/01/25 15:51 Temperature Temperature Source Pulse Rate 109 H Pulse Rate from SpO2 Sensor 107 H Respiratory Rate 24 Respiratory Effort / Characteristics Respiratory Depth Blood Pressure 123/72 123/72 Blood Pressure Mean 86 86 Pulse Oximetry 97 Oxygen Delivery Method Sepsis Recent Fever Within 48 Hours Sepsis New/Unexplained Change in Mental Status Sepsis Action Taken by Nursing 08/01/25 16:01 08/01/25 16:09 08/01/25 16:12 Temperature Temperature Source Pulse Rate 109 H 104 H Pulse Rate from SpO2 Sensor 109 H 106 H Respiratory Rate 21 24 Respiratory Effort / Characteristics Respiratory Depth Blood Pressure 127/100 Blood Pressure Mean 105 Pulse Oximetry 96 95 Oxygen Delivery Method Sepsis Recent Fever Within 48 Hours Sepsis New/Unexplained Change in Mental Status Sepsis Action Taken by Nursing 08/01/25 16:36 08/01/25 16:38 08/01/25 16:38 Temperature Temperature Source Pulse Rate 110 H 110 H Pulse Rate from SpO2 Sensor 111 H Respiratory Rate 21 17 Respiratory Effort / Characteristics Respiratory Depth Blood Pressure 136/100 136/100 Blood Pressure Mean 114 114 Pulse Oximetry 97 97 Oxygen Delivery Method Sepsis Recent Fever Within 48 Hours Sepsis New/Unexplained Change in Mental Status Sepsis Action Taken by Nursing 08/01/25 16:39 08/01/25 17:00 08/01/25 17:01 Temperature Temperature Source Pulse Rate 115 H 97 H Pulse Rate from SpO2 Sensor 113 H 95 H Respiratory Rate 23 32 H Respiratory Effort / Characteristics Respiratory Depth Blood Pressure 106/75 Blood Pressure Mean 87 Pulse Oximetry 96 95 Oxygen Delivery Method Room Air Sepsis Recent Fever Within 48 Hours Sepsis New/Unexplained Change in Mental Status Sepsis Action Taken by Nursing 08/01/25 17:01 08/01/25 17:21 Temperature Temperature Source Pulse Rate 105 H Pulse Rate from SpO2 Sensor 105 H Respiratory Rate 19 Respiratory Effort / Characteristics Respiratory Depth Blood Pressure 106/75 Blood Pressure Mean 87 Pulse Oximetry 97 Oxygen Delivery Method Sepsis Recent Fever Within 48 Hours Sepsis New/Unexplained Change in Mental Status Sepsis Action Taken by Nursing VITAL SIGNS - Vital signs and nursing notes were reviewed. Tachycardic, otherwise stable and afebrile. GENERAL -40-year-old female appearing her stated age who is in no acute distress. Communicates well with provider and answers questions appropriately. SKIN -there is a wound in the right axillary region with a horizontally oriented incision measuring approximately 0.75 cm in length. The area is mildly indurated. No purulence or crepitus. There is no active drainage. HEAD - NC/AT. EYES - PERRL with EOMI bilaterally. Sclera anicteric. EARS - No deformities of external structures noted on gross examination bilaterally. NOSE - Midline and without cyanosis. No epistaxis or purulent drainage noted. MOUTH/OROPHARYNX - Without perioral cyanosis. NECK - Neck with FROM. No nuchal rigidity. LUNGS - CTA CARDIAC - RRR EXTREMITIES - +5/5 strength noted in UE/LE bilaterally. NEUROLOGIC -sensory intact throughout the right upper extremity without deficit. PSYCH -alert, oriented and pleasant on exam. Course Administered Medications Insulin Aspart (Insulin Aspart Per Unit Charge) 0 units SC ACHS MAHAMED Stop: 08/31/25 20:59 Last Admin: 08/01/25 21:17 Dose: Not Given Documented By: SND Discontinued Medications Diphenhydramine HCl (Diphenhydramine 50 Mg/Ml Vial) 50 mg IV ONCE ONE Stop: 08/01/25 19:38 Last Admin: 08/01/25 20:13 Dose: Not Given Documented By: NAW Sodium Chloride (Nss) 1,000 mls @ 999 mls/hr IV .Q1H1M ONE Stop: 08/01/25 15:46 Last Infusion: 08/01/25 16:33 Dose: Infused Documented By: Admin: 08/01/25 14:54 Dose: 999 mls/hr Documented By: RICARDA Ceftriaxone Sodium (Rocephin) 2,000 mg in 50 mls @ 100 mls/hr IV NOW STA Stop: 08/01/25 15:59 Last Infusion: 08/01/25 16:33 Dose: Infused Documented By: Admin: 08/01/25 15:45 Dose: 100 mls/hr Documented By: RICARDA Metronidazole (Flagyl) 500 mg in 100 mls @ 100 mls/hr IV NOW STA; Protocol Stop: 08/01/25 16:29 Last Infusion: 08/01/25 17:44 Dose: Infused Documented By: Admin: 08/01/25 16:33 Dose: 100 mls/hr Documented By: ARUN Daptomycin 700 mg/ Syringe 14 mls @ 7 mls/min IV NOW ONE; Protocol Stop: 08/01/25 15:42 Last Admin: 08/01/25 16:33 Dose: 7 mls/min Documented By: ARUN Medical Decision Making Laboratory Data 08/01/25 13:05 08/01/25 15:31 Lab Results 08/01/25 08/01/25 08/01/25 Range/Units 13:05 14:54 15:31 WBC 7.68 (4.8-10.8) K/ul RBC 4.97 (4.20-5.40) M/uL Hgb 14.5 (12.0-16.0) g/dl Hct 44.9 (37.0-47.0) % MCV 90.3 (80.0-100.0) fL MCH 29.2 (25.0-34.0) pg MCHC 32.3 (32.0-36.0) g/dL RDW Std Deviation 45.1 (36.4-46.3) fL RDW Coeff of Zbigniew 13.6 (11.5-14.5) % Plt Count 210 (130-400) K/uL MPV 10.0 (9.4-12.4) fL Immature Gran % (Auto) 1.2 % Neut % (Auto) 86.1 % Lymph % (Auto) 7.2 % [place] % (Auto) 5.1 % Eos % (Auto) 0.1 % Baso % (Auto) 0.3 % Neut # (Auto) 6.62 H (1.40-6.50) K/uL Lymph # (Auto) 0.55 L (1.20-3.40) K/uL [place] # (Auto) 0.39 (0.11-0.59) K/uL Eos # (Auto) 0.01 (0.00-0.50) K/uL Baso # (Auto) 0.02 (0.00-0.20) K/uL Immature Gran # (Auto) 0.09 (0.01-0.20) K/uL PT Cancelled 11.2 INR Cancelled 1.0 APTT Cancelled 33 H PTT Ratio Cancelled 1.2 Sodium Cancelled 136 Potassium Cancelled 3.7 Chloride Cancelled 109 H Carbon Dioxide Cancelled 18 L Anion Gap Cancelled 9 BUN Cancelled 12 Creatinine Cancelled 0.95 Est Cr Clr Drug Dosing Cancelled 125.7 eGFR Cancelled 77.68 BUN/Creatinine Ratio Cancelled 12.6 Glucose Cancelled 107 H Lactate 0.9 (0.4-2.0) mmol/L Calcium Cancelled 8.8 Magnesium Cancelled 1.9 Total Bilirubin Cancelled 0.9 AST Cancelled 12 L ALT Cancelled 13 Alkaline Phosphatase Cancelled 91 Troponin I High Sens < 2.3 (0-14) pg/ml C-Reactive Protein Cancelled 7.39 H Total Protein Cancelled 7.4 Albumin Cancelled 4.0 Globulin Cancelled 3.4 Albumin/Globulin Ratio Cancelled 1.2 Procalcitonin Cancelled 0.55 H HCG, Qual Negative (Negative) Urine Color Urine Appearance (Clear) Urine pH (4.5-7.5) Ur Specific [place] (1.000-1.030) Urine Protein (Negative) Urine Glucose (UA) (Negative) Urine Ketones (Negative) Urine Blood (Negative) Urine Nitrite (Negative) Urine Bilirubin (Negative) Urine Urobilinogen (Negative) Ur Leukocyte Esterase (Negative) Urine WBC (Auto) (0-5) /hpf Urine RBC (Auto) (0-2) /hpf U Hyaline Cast (Auto) (0-2) /lpf U Epithel Cells (Auto) (0-2) /hpf Urine Bacteria (Auto) (None Seen) Urine Comment Adenovirus (PCR) Not Detected (NotDetected) B. pertussis DNA (PCR) Not Detected (NotDetected) B.parapertussis DNA PCR Not Detected (NotDetected) C. pneumoniae DNA (PCR) Not Detected (NotDetected) Coronavirus OC43 (PCR) Not Detected (NotDetected) Coronavirus HKU1 (PCR) Not Detected (NotDetected) Coronavirus 229E (PCR) Not Detected (NotDetected) SARS-CoV-2 (PCR) Not Detected (NotDetected) Coronavirus NL63 (PCR) Not Detected (NotDetected) Human Metapneumovir PCR Not Detected (NotDetected) Influenza Type A (PCR) Not Detected (NotDetected) Influenza Type B (PCR) Not Detected (NotDetected) M. pneumoniae (PCR) Not Detected (NotDetected) Parainfluenza 1 (PCR) Not Detected (NotDetected) Parainfluenza 2 (PCR) Not Detected (NotDetected) Parainfluenza 3 (PCR) Not Detected (NotDetected) Parainfluenza 4 (PCR) Not Detected (NotDetected) RSV (PCR) Not Detected (NotDetected) Entero/Rhino (PCR) Not Detected (NotDetected) 08/01/25 Range/Units 16:37 WBC (4.8-10.8) K/ul RBC (4.20-5.40) M/uL Hgb (12.0-16.0) g/dl Hct (37.0-47.0) % MCV (80.0-100.0) fL MCH (25.0-34.0) pg MCHC (32.0-36.0) g/dL RDW Std Deviation (36.4-46.3) fL RDW Coeff of Zbigniew (11.5-14.5) % Plt Count (130-400) K/uL MPV (9.4-12.4) fL Immature Gran % (Auto) % Neut % (Auto) % Lymph % (Auto) % [place] % (Auto) % Eos % (Auto) % Baso % (Auto) % Neut # (Auto) (1.40-6.50) K/uL Lymph # (Auto) (1.20-3.40) K/uL [place] # (Auto) (0.11-0.59) K/uL Eos # (Auto) (0.00-0.50) K/uL Baso # (Auto) (0.00-0.20) K/uL Immature Gran # (Auto) (0.01-0.20) K/uL PT INR APTT PTT Ratio Sodium Potassium Chloride Carbon Dioxide Anion Gap BUN Creatinine Est Cr Clr Drug Dosing eGFR BUN/Creatinine Ratio Glucose Lactate (0.4-2.0) mmol/L Calcium Magnesium Total Bilirubin AST ALT Alkaline Phosphatase Troponin I High Sens (0-14) pg/ml C-Reactive Protein Total Protein Albumin Globulin Albumin/Globulin Ratio Procalcitonin HCG, Qual (Negative) Urine Color Yellow Urine Appearance Cloudy A (Clear) Urine pH 6.0 (4.5-7.5) Ur Specific [place] 1.027 (1.000-1.030) Urine Protein Trace H (Negative) Urine Glucose (UA) Negative (Negative) Urine Ketones Trace H (Negative) Urine Blood Negative (Negative) Urine Nitrite Negative (Negative) Urine Bilirubin Negative (Negative) Urine Urobilinogen Negative (Negative) Ur Leukocyte Esterase Negative (Negative) Urine WBC (Auto) 0-5 (0-5) /hpf Urine RBC (Auto) 0-2 (0-2) /hpf U Hyaline Cast (Auto) 0-2 (0-2) /lpf U Epithel Cells (Auto) 6-10 H (0-2) /hpf Urine Bacteria (Auto) 2+ H (None Seen) Urine Comment Adenovirus (PCR) (NotDetected) B. pertussis DNA (PCR) (NotDetected) B.parapertussis DNA PCR (NotDetected) C. pneumoniae DNA (PCR) (NotDetected) Coronavirus OC43 (PCR) (NotDetected) Coronavirus HKU1 (PCR) (NotDetected) Coronavirus 229E (PCR) (NotDetected) SARS-CoV-2 (PCR) (NotDetected) Coronavirus NL63 (PCR) (NotDetected) Human Metapneumovir PCR (NotDetected) Influenza Type A (PCR) (NotDetected) Influenza Type B (PCR) (NotDetected) M. pneumoniae (PCR) (NotDetected) Parainfluenza 1 (PCR) (NotDetected) Parainfluenza 2 (PCR) (NotDetected) Parainfluenza 3 (PCR) (NotDetected) Parainfluenza 4 (PCR) (NotDetected) RSV (PCR) (NotDetected) Entero/Rhino (PCR) (NotDetected) Imaging Data Radiologist's Impression: Chest X-Ray 08/01/25 12:47 XR chest 1V not portable CLINICAL HISTORY: Sepsis COMPARISON STUDY: 06/17/2023 FINDINGS: There is mild cardiomegaly without pulmonary vascular congestion. No consolidation or pleural effusion. No pneumothorax. IMPRESSION: No pneumonia seen. ACT 112: Negative or not required by law. Electronically signed by: Gavin Manzanares M.D. 08/01/2025 2:12 PM MDM Narrative Patient was seen and evaluated as above in room B10. Review was performed of triage nursing notes and vital signs. I did review pertinent previous visits and patient history. After obtaining a thorough history and physical examination the above work up was performed. Patient presents to us today for evaluation of right axillary abscess status post I&D, right labial developing wound and left inguinal region wound. She is well-appearing and nontoxic. She is tachycardic here. Options of care were discussed with the patient. IV access was established. Labs were drawn. There is no leukocytosis or concerning anemia. No evidence of kidney or liver failure. Procalcitonin detectable at 0.55. Broad-spectrum antibiotics were ordered. Urinalysis does not suggest infection. BioFire panel negative. Chest x-ray without pneumonia. Patient responded well to fluids. 1541: examination performed with Caridad Ramirez RN present at bedside to medical dosimetrist. Verbal consent was obtained from the patient. The right external genital structures/right labia majora does show a 1 cm indurated area without fluctuance. Similar structure in the left inguinal area also without fluctuance. No evidence of Marge gangrene. I do believe that further evaluation and management inpatient setting is warranted. Case discussed with the hospitalist service. Please refer to further documentation regarding her stay In the evaluation and treatment of this patient the following differential diagnoses were entertained: Cellulitis, abscess, necrotizing fasciitis, among others Impression & Plan Hidradenitis suppurativa, Cellulitis of axilla, right Discharge Plan Visit Data Chief Complaint: Illness Stated Complaint: ABCESS CHILLS FEVER ED Provider: [facility] ED Midlevel Provider: Chevy Kraus Discharge Problem: Hidradenitis suppurativa, Cellulitis of axilla, right Patient Disposition: Admitted As Inpatient Condition: Good Discharge Instructions Interventions: ED Discharge Assessment Last Done: 08/01/25 19:38
--- NOTE | 2025-08-01 14:14 | XRay Report ---
XR chest 1V not portable CLINICAL HISTORY: Sepsis COMPARISON STUDY: 06/17/2023 FINDINGS: There is mild cardiomegaly without pulmonary vascular congestion. No consolidation or pleur al effusion. No pneumothorax. IMPRESSION: No pneumonia seen. ACT 112: Negative or not required by law. Electronically signed by: Gavin Manzanares M.D. 08/01/2025 2:12 PM
[2025-08-01] MEDS: SODIUM CHLORIDE 0.9% 1,000 ML IV ONE (14:54)
--- NOTE | 2025-08-01 15:29 | Emergency Department Note ---
ED Visit Note I was consulted by the Advanced Practice Provider. I personally made/approved the management plan and take responsibility for the patient management. I performed a substantive portion of the visit. This includes the aspects of: [-I independently interpreted the following studies:] [Chest x-ray does not show mediastinal widening or pneumonia.] Patient presents with concerns for infection. She has felt chilled. She recently had a right axillary abscess drained outpatient. At times, she was borderline hypotensive while in our ED. She was somewhat tachycardic in the ED. She has received IV fluids and IV antibiotics. Hospitalization is indicated. The hospitalist has been consulted. .
[2025-08-01] MEDS: cefTRIAXone SODIUM 2,000 MG/50 ML BAG IV STA (15:45)
[2025-08-01 16:04] LABS: Alanine Aminotransferase 13.0 U/L (7-52); Albumin Globulin Ratio 1.2 (0.9-2); Alkaline Phosphatase 91.0 U/L (34-104); Anion Gap 9.0 (3-11); Bilirubin,Total 0.9 mg/dl (0.2-1.0); Blood Urea Nitrogen 12.0 mg/dl (6-23); Calcium 8.8 mg/dl (8.6-10.3); Carbon Dioxide 18.0 mmol/L (21-32); Chloride 109.0 mmol/L (98-107); Creatinine Clr Calc Pharmacy 125.7 ml/min; Globulin 3.4 gm/dl (2.5-4.0); Glucose 107.0 mg/dl (70-99(Fasting)); Magnesium 1.9 mg/dl (1.7-2.4); Potassium 3.7 mmol/L (3.5-5.1); Sodium 136.0 mmol/L (136-145); Total Protein 7.4 gm/dl (6.0-8.3)
[2025-08-01 16:15] LABS: Pregnancy Test, Serum Negative (Negative)
[2025-08-01 16:19] LABS: Chlamydia pneumoniae PCR Not Detected (NotDetected); Coronavirus 229E PCR Not Detected (NotDetected); Coronavirus CoV-2 (COVID19)PCR Not Detected (NotDetected); Coronavirus HKU1 PCR Not Detected (NotDetected); Coronavirus NL63 PCR Not Detected (NotDetected); Coronavirus OC43PCR Not Detected (NotDetected); Human Metapneumovirus PCR Not Detected (NotDetected); Parainfluenza Virus 1 PCR Not Detected (NotDetected); Parainfluenza Virus 2 PCR Not Detected (NotDetected); Parainfluenza Virus 3 PCR Not Detected (NotDetected); Parainfluenza Virus 4 PCR Not Detected (NotDetected); Respiratory Syncytial VirusPCR Not Detected (NotDetected); Rhinovirus/Enterovirus PCR Not Detected (NotDetected)
[2025-08-01 16:29] LABS: INR 1.0 (0.9-1.1); Partial Thromboplastin Time 33 Seconds (21-31); Prothrombin Time 11.2 Seconds (9.0-12.0)
[2025-08-01] MEDS: metroNIDAZOLE 500 MG/100 ML BAG IV STA (16:33)
[2025-08-01] MEDS: DAPTOmycin 700 MG in SYRINGE 0 ML IV ONE (16:33)
[2025-08-01 17:07] LABS: Appearance Urine Cloudy (Clear); Bacteria Urine Automated 2+ (None Seen); Cast Urine Automated 0-2 /lpf (0-2); Glucose Urine UA Negative (Negative); RBC Urine Automated 0-2 /hpf (0-2); WBC Urine Automated 0-5 /hpf (0-5)
--- NOTE | 2025-08-01 17:36 | History & Physical Report ---
Date of Service August 01, 2025 Assessment & Plan (1) Abscess of right axilla: (2) Hidradenitis suppurativa: (3) Morbid obesity: (4) Hx of migraines: (5) Hyperlipidemia: (6) Hypertension: (7) Diabetes mellitus, type 2: Plan Plan: 40 yrs old female with Fever, chills and cough since 1 day with PMH of DM2, HTN, HLD, Moderate obesity. She had right axillary abscess and developed symptoms after I&D procedure yesterday. Right axillary abscess: - Fever, chills a/w right axillary abscess after I&D procedure. - Flu test negative in ED. - CXR findings normal. - Was given ceftriaxone, daptomycin and metronidazole in ED. - Ordered Cefazolin Iv for abscess with coverage to MSSA and strept, Will consider broader coverage if MRSA nasal nares positive. - ordered cbc, bmp AM. - Ordered Mrsa nasal swab, wound culture and blood culture. - Flu test negative. - CXR findings normal. - Was given ceftriaxone, daptomycin and metronidazole in ED. DM type 2: - DM2 with home insulin Glargine 70 and semaglutide. - Insulin glargine- 25 BID - Correction factor- 20 -Carbs ratio- 7 Hypertension: - Blood pressure today 106/75 mmHg. Continue lisinopril 10 mg daily and Aldactone 100 mg daily. Hyperlipidemia: - Continue simvastatin 20 mg daily use. DVT prophylaxis: Lovenox 40mg. History of Present Illness Chief Complaint: 40 yrs old F reports fever, chills, cough x yesterday. Right axillary abscess x 4-5 days Primary Care Provider: DIEGO Villalobos 40 yrs old female developed fever, chills, cough and uncomfortable feeling since yesterday after she went to the urgent care to undergo I&D for abscess on the right axilla which she developed since 5 days ago. No intake of antibiotics after I&D. She does have a history of multible abscess in the past with chronic H/o HIdradenitis supprativa which required multipe antibiotics and I&D on her belly. PMH of diabetes treated with insulin, HTN, HLD, morbid Obesity, Hidradenitis supprativa. No H/o N/V, palpitations, SOB. Allergies Allergy/AdvReac Type Severity Reaction Status Date / Time doxycycline Allergy Severe hives Verified 07/31/25 12:19 Estrogens Allergy Severe ANAPHYLAXIS Verified 07/31/25 12:19 WITH CONTROL PILLS lithium Allergy Severe ANAPHYLAXIS Verified 07/31/25 12:19 sulfamethoxazole Allergy Severe red skin, Verified 07/31/25 12:19 [From Bactrim] itchy trimethoprim [From Bactrim] Allergy Severe red skin, Verified 07/31/25 12:19 itchy clindamycin Allergy Intermediate Rash Verified 07/31/25 12:19 adalimumab [From Humira] Allergy Mild Rash Verified 07/31/25 12:19 cephalexin [From Keflex] Allergy Verified 08/01/25 13:44 methylprednisolone AdvReac Mild Rash Verified 07/31/25 12:19 B 12 AdvReac Intermediate Diarrhea Uncoded 07/31/25 12:19 Home Medications Medication Instructions Recorded Confirmed Type blood-glucose meter (tydy 10/09/21 07/31/25 History Ultra2 Meter kit) lumateperone 42 mg capsule 42 mg PO HS 09/23/22 08/01/25 History (Caplyta) magnesium oxide 400 mg PO QAM 05/08/23 08/01/25 History syringe with needle 3 mL 22 x 1 #4 ea 06/01/23 07/31/25 Rx 1/2" (BD SafetyGlide Syringe) flash glucose sensor (FreeStyle #1 ea 06/09/23 07/31/25 Rx Gogo 2 Sensor kit) bupropion HCl 300 mg 24 hr tablet, 300 mg PO QAM 06/17/23 08/01/25 History extended release blood sugar diagnostic (Kyma TechnologiesTouch #300 ea 07/06/23 07/31/25 Rx Ultra Test strips) lancets 30 gauge ([employer]Touch Delica #300 ea 07/06/23 07/31/25 Rx Plus Lancet) pen needle, diabetic 31 gauge x #400 ea 04/19/24 07/31/25 Rx 1/4" (1st Tier Unifine Pentips) fluconazole 150 mg tablet 150 mg PO WK preventatively 10/10/24 08/01/25 History simvastatin 20 mg tablet 20 mg PO QAM #90 tabs 11/15/24 08/01/25 Rx famotidine 20 mg tablet 20 mg PO BID #180 tabs 12/05/24 08/01/25 Rx acetazolamide 250 mg tablet 750 mg (3 x 250 mg) PO BID 01/04/25 08/01/25 Rx diuretic #60 tabs medroxyprogesterone 2.5 mg tablet 2.5 mg PO QAM #90 tabs 01/20/25 08/01/25 Rx (Provera) semaglutide 2 mg/dose (8 mg/3 mL) 2 mg (0.75 mL) subcut WK Diabetes 02/23/25 08/01/25 Rx subcutaneous pen injector 90 days #9 mL cyclobenzaprine 5 mg tablet 5 mg PO TID PRN muscle spasm #30 03/15/25 08/01/25 Rx tabs lisinopril 10 mg tablet 10 mg PO QAM #90 tabs 04/04/25 08/01/25 Rx eletriptan 40 mg tablet See Rx Instructions PO .COMPLEX 04/13/25 08/01/25 Rx PRN migraine headache 30 days #9 tabs cetirizine 10 mg tablet 10 mg PO QAM #90 tabs 05/11/25 08/01/25 Rx erenumab-aooe 140 mg/mL 140 mg subcut MONTHLY #1 mL 07/03/25 08/01/25 Rx subcutaneous auto-injector (Aimovig Autoinjector) gabapentin 100 mg capsule 100 - 200 mg (1 - 2 x 100 mg) PO 07/20/25 08/01/25 Rx BID PRN leg pain #60 caps cholecalciferol (vitamin D3) 1,250 50,000 unit PO DIRECTED 08/01/25 08/01/25 History mcg (50,000 unit) capsule insulin glargine 100 unit/mL (3 70 unit subcut QPM 08/01/25 08/01/25 History mL) subcutaneous pen (Basaglar KwikPen U-100 Insulin) spironolactone 50 mg tablet 50 mg PO QAM 08/01/25 08/01/25 History Past Med/Surg History Problem List (Updated 08/01/25 @ 17:59 by Bonita Mcgarry MD) Abscess of right axilla Dysuria Chronic abdominal pain Encounter for cosmetic procedure Neurogenic claudication Low back pain radiating to right leg Migraine Headache Vitamin D deficiency Vitamin B12 deficiency Headache, chronic daily Cervical high risk HPV (human papillomavirus) test positive Hidradenitis suppurativa Pelvic cramping Dependent edema Dietary counseling and surveillance Type 2 diabetes mellitus treated with insulin Metabolic syndrome Encounter for pre-operative examination Hyponatremia COVID-19 Snoring TSH elevation Morbid obesity (Chronic) Unspecified papilledema "Clinically improved, continue to follow with Ophthalmology, continue acetazolamide 750 mg b.i.d"-follows with [place] neuro Hyperlipidemia Anxiety and depression Recurrent infection of skin Seasonal allergies Acid reflux Fatty liver Hypertension Medical History Hidradenitis suppurativa Hx MRSA infection in an abdominal wound 05/2023, tested at [facility]. treated with IV abx at the time. no current issues Morbid obesity with BMI of 60.0-69.9, adult History of pneumonia 12/2021--covid + and hospitalized at [facility] for 6 days, on oxygen at that time--resolved. Chronic headaches Hx of migraines Fatty liver Acid reflux Anxiety Increased cerebrospinal fluid production unknown cause - had lumbar puncture, states this is the cause of the papilledema History of lumbar puncture (04/03/21) at [facility] Papilledema "Clinically improved, continue to follow with Ophthalmology, continue acetazolamide 750 mg b.i.d" follows with Dr Crisostomo and [facility] Hyperlipidemia Hypertension Suspected sleep apnea never tested, pt reports she does snore loudly and can wake herself up at times throughout the night. History of COVID-19 12/2021-> hospitalized at [facility] for covid pneumonia for ~6 days. resolved. 07/09/24 home test, f/u with pcp for SOB and cough. given nebulizer treatment at appointment. doing well now, all resolved. Diabetes mellitus, type 2 IDDM Multiple pulmonary nodules High risk HPV infection per patient, no treatment? Depression Allergic rhinitis History of blood transfusion 2009 History of anemia Bipolar and related disorder Post traumatic stress disorder Heart murmur follows with PCP Surgical History Hx laparoscopic cholecystectomy (05/21/23) Laparoscopic Cholecystectomy, Liver Biopsy(Not Applicable) - Gustavo Mo, DO History of incision and drainage (01/14/22) Incision, drainage and debridement of left lower quadrant abdominal wall abscess, which was greater than 20 cm2 and contained skin and subcutaneous tissue 01/14/2022 Dr. Wilson Hx of tonsillectomy Family History Grandmother (Paternal) Breast cancer Grandmother (Maternal) Diabetes Colorectal cancer Mother Diabetes Gallbladder problem Father Diabetes Coronary heart disease, Onset Age: 57 Depression Heart disease Sister Gallbladder problem Other Family history non-contributory No family history of adverse response to anesthesia Denies family history of Ovarian cancer Prostate cancer Social History Smoking Status: Former smoker Tobacco Type: Cigarettes Age Started Using Tobacco: 0; Age Quit Using Tobacco: 0; packs per day: 0; Second Hand Exposure: No; Do You Dip or Chew Tobacco: No; Hx Alcohol Use: Yes Alcohol type: wine Alcohol Intake Frequency: Monthly or Less Hx Substance Use: No Preferred Language: Sudanese Communication Ability: Effective Visual Impairment: No Limitations Hearing Ability: Normal Pre Wave Assembler Required: No Beliefs That Will Affect Care: None marital status: Single Current Living Situation: Family Current Living Situation Comment: Lives w/sister Coty and 2 cats current occupational status: disabled How many Children do You have: 0 Feels Safe at Home: Yes Childhood Exposure to Second-Hand Smoke: Yes Diet: diabetic, ideal protein and low carbohydrate caffeine: Yes during the past year weight has: decreased > 10 lbs Dental Care, Regularly: Yes Physical Activity Frequency: 1-2 Times per Week Seatbelt Use: always Sunscreen Use: Yes Gender Identity: Female Assistive Devices: Glasses Review of Systems Review of Systems: All other systems were reviewed and negative except as noted in HPI Physical Exam Constitutional: WD/WN, vitals as above well developed and well nourished; no acute distress Eyes: PERRL, conjunctivae normal, anicteric sclerae Skin: + lesion right axilla: drained wound with slight erythema, no fluctuance. Results & Data Results & Data Vital Signs (Past 12 Hours) Vital Signs Temp Pulse Resp BP Pulse Ox O2 Del Method 08/01/25 17:01 106/75 08/01/25 17:01 106/75 08/01/25 17:00 97 H 32 H 95 Room Air 08/01/25 16:39 115 H 23 96 08/01/25 16:38 110 H 17 136/100 97 08/01/25 16:38 136/100 09/09/25 16:36 110 H 21 97 08/01/25 16:12 104 H 24 95 08/01/25 16:09 109 H 21 96 08/01/25 16:01 127/100 08/01/25 15:51 109 H 24 97 08/01/25 15:31 123/72 08/01/25 15:31 123/72 08/01/25 15:31 123/72 08/01/25 15:30 100 H 15 96 08/01/25 15:27 126/79 08/01/25 15:27 126/79 08/01/25 15:27 96 H 20 126/79 96 08/01/25 15:24 96 H 25 H 08/01/25 15:21 104 H 15 97 08/01/25 15:19 96/68 L 08/01/25 15:18 95 H 20 96 08/01/25 15:15 97 H 13 97 08/01/25 15:00 89/67 L 08/01/25 15:00 89/67 L 08/01/25 15:00 89/67 L 08/01/25 15:00 89/67 L 08/01/25 15:00 89/67 L 08/01/25 15:00 100 H 19 95 08/01/25 14:51 102 H 21 95 08/01/25 14:44 103 H 08/01/25 14:42 102 H 20 94 Room Air 08/01/25 14:36 92 Room Air 08/01/25 12:44 37.3 C 115 H 18 124/76 97 Room Air Code Status & VTE Plan VTE Prophylaxis Plan VTE Prophylaxis will be ordered: Yes Supervising Physician Co-Signing Physician Notes I personally examined the patient and verified all ma points of history and exam, discussed case, and agree with decision making with Dr Zeferino Riley abscesswas drained yesterday. Febrile at home. Feeling generally lousy. Came to the hospital for further evaluation. Vitals noted, in general she is awake and alert very fatigued but no evident distress. HEENT normocephalic atraumatic mucous membranes moist. Breathing unlabored no accessory muscle use good effort. Skinthere is a stab wound in her right axillamore on her flank than truly in the armpitwith no purulence, mild surrounding erythema but a deep firmnessit is hard to tell if it is truly fluctuant or if it is just inflamed and swollen. Exam otherwise as above. Labs and diagnostics noted. Skin abscesssepsis present on admission (SIRS being her heart rate respiratory rate and presumed fever at home)given that she is not severe sepsis or septic shock, will cover for MSSA (given that is a skin and soft tissue infection most likely staph or strep, given his purulent most likely staph)and we can always escalate to MRSA treatment if she fails to respond, or if the cultures/MRSA nares dictate. Discussed with patient about her prior allergiesshe relates that with Keflex she just had a red facenot even hives, let alone anaphylaxisand after discussion of risk/benefit and overall course of treatment, she agreed that we would be most appropriate and starting a first generation cephalosporin. We will have to follow the area of firmnessit is possible that it is an abscess that is loculated and may need we drained, but also it may simply be inflammation from a prior abscessfollow overnight, if it goes down, then no further intervention would be needed; if it does not, then consider bedside drainage versus imaging to further evaluate. Otherwise as above. Resident Activity Tracking Resident Involvement: Resident Care Provided Care Provided: Adult Hospital Medicine
--- NOTE | 2025-08-01 17:43 | Billing Data ---
Date of Service August 01, 2025 Coding Level of Care Code 62022 INT INP/OBS CARE
[2025-08-01] MEDS ORDERED: GLUCOSE 10 TAB/TUBE PO PRN (19:37)
[2025-08-01] MEDS ORDERED: POLYETHYLENE (MIRALAX) 17 GM PACK PO PRN (19:37)
[2025-08-01] MEDS ORDERED: CARBOHYDRATES FOR HYPOGLYCEMIA PO PRN (19:37)
[2025-08-01] MEDS ORDERED: MELATONIN 3 MG TAB PO PRN (19:37)
[2025-08-01] MEDS ORDERED: DEXTROSE 50% 50 ML SYRINGE IV PRN (19:37)
[2025-08-01] MEDS ORDERED: ACETAMINOPHEN 325 MG TAB PO PRN (19:37)
[2025-08-01] MEDS ORDERED: GABAPENTIN 100 MG CAP PO PRN (19:37)
[2025-08-01] MEDS ORDERED: ONDANSETRON INJ 2 MG/ML 2 ML VIAL IV PRN (19:37)
[2025-08-01] MEDS ORDERED: ALUMINUM/MAGNESIUM SUSP 30 ML UDC PO PRN (19:37)
[2025-08-01] MEDS ORDERED: GLUCAGON FOR INJ 1 MG VIAL SQ PRN (19:37)
[2025-08-01] MEDS ORDERED: GLUCOSE 40% GEL 15 GM TUBE PO PRN (19:37)
[2025-08-01] MEDS ORDERED: MAGNESIUM HYDROXIDE SUSP 30 ML UDC PO PRN (19:37)
[2025-08-01] MEDS: diphenhydrAMINE 50 MG/ML VIAL IV ONE (20:13)
[2025-08-01] MEDS: INSULIN ASPART PER UNIT CHARGE SC SCH (21:17)
[2025-08-01] MEDS: ENOXAPARIN INJ 40 MG/0.4 ML SYR SQ SCH (22:23)
[2025-08-01] MEDS: LANTUS PER UNIT CHARGE SQ SCH (22:24)
[2025-08-01] MEDS: acetaZOLAMIDE 250 MG TAB PO SCH (22:31)
[2025-08-01 23:10] VITALS: O2SAT 95
[2025-08-02 08:04] LABS: Hematocrit (blood only) 40.3 % (37.0-47.0); Hemoglobin 13.1 g/dl (12.0-16.0); Immature Granulocytes # (auto) 0.08 K/uL (0.01-0.20); Immature Granulocytes % (auto) 1.2 %; Mean Corpuscular Hemoglobin 29.1 pg (25.0-34.0); Mean Corpuscular Volume 89.6 fL (80.0-100.0); Platelet Count 184 K/uL (130-400); RDW Standard Deviation 44.2 fL (36.4-46.3); Red Blood Count 4.50 M/uL (4.20-5.40); White Blood Count 6.86 K/ul (4.8-10.8)
[2025-08-02 08:07] VITALS: BP 116/74; PULSE 99; RESP 18; TEMP 98.1
[2025-08-02 08:30] LABS: Anion Gap 8.0 (3-11); Blood Urea Nitrogen 12.0 mg/dl (6-23); Calcium 8.3 mg/dl (8.6-10.3); Carbon Dioxide 19.0 mmol/L (21-32); Chloride 108.0 mmol/L (98-107); Creatinine Clr Calc Pharmacy 122.3 ml/min; Potassium 3.5 mmol/L (3.5-5.1); Sodium 135.0 mmol/L (136-145)
[2025-08-02] MEDS: SPIRONOLACTONE 25 MG TAB PO SCH (08:44)
[2025-08-02] MEDS: SIMVASTATIN 20 MG TAB PO SCH (08:44)
--- NOTE | 2025-08-02 13:09 | Communication Note ---
Date of Service: August 02, 2025 By CMS guidelines, a determination that the admission or continued stay is not medically necessary has been made by a member of the UR committee and a physician for this hospital stay, therefore a Code 44 will be completed and the Inpatient admission will be changed to outpatient.
--- NOTE | 2025-08-02 17:05 | Discharge Summary ---
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 Reports chills today morning from 3-5am. No intake of antibiotics after I&D. She does have a history of multiple abscess in the past with chronic H/o Hidradenitis supprativa which required multiple antibiotics and I&D on her belly. PMH of diabetes treated with insulin, HTN, HLD, morbid Obesity, Hidradenitis supprativa. No H/o N/V, palpitations, SOB. Admission Exam Per Admitting Provider Constitutional: WD/WN, vitals as above well developed and well nourished; no acute distress Eyes: PERRL, conjunctivae normal, anicteric sclerae Skin: + lesion right axilla: drained wound wi th slight erythema, no fluctuance. Principal Diagnosis Right axillary abscess Discharge Exam Constitutional WD/WN, vitals as above well developed and well nourished; no acute distress Eyes PERRL, conjunctivae normal, anicteric sclerae Skin + lesion slight erythema, no fluctuance, no drainage on the incision site. Discharge Data Allergies Allergy/AdvReac Type Severity Reaction Status Date / Time doxycycline Allergy Severe hives Verified 07/31/25 12:19 Estrogens Allergy Severe ANAPHYLAXIS Verified 07/31/25 12:19 WITH CONTROL PILLS lithium Allergy Severe ANAPHYLAXIS Verified 07/31/25 12:19 sulfamethoxazole Allergy Severe red skin, Verified 07/31/25 12:19 [From Bactrim] itchy trimethoprim [From Bactrim] Allergy Severe red skin, Verified 07/31/25 12:19 itchy clindamycin Allergy Intermediate Rash Verified 07/31/25 12:19 adalimumab [From Humira] Allergy Mild Rash Verified 07/31/25 12:19 cephalexin [From Keflex] Allergy Rash Verified 08/02/25 11:24 methylprednisolone AdvReac Mild Rash Verified 07/31/25 12:19 B 12 AdvReac Intermediate Diarrhea Uncoded 07/31/25 12:19 Consultations 08/01/25 15:44 ED Decision to Admit Stat Hospital Course (1) Abscess of right axilla: (2) Hidradenitis suppurativa: (3) Morbid obesity: (4) Hx of migraines: (5) Hyperlipidemia: (6) Hypertension: (7) Diabetes mellitus, type 2: Plan Plan: 40 yrs old female with Fever, chills and cough since 1 day with PMH of DM2, HTN, HLD, Moderate obesity. She had right axillary abscess and developed symptoms after I&D procedure yesterday. Right axillary abscess: - Fever, chills a/w right axillary abscess after I&D procedure. - Flu test negative in ED. - CXR findings normal. - Was given ceftriaxone, daptomycin and metronidazole in ED. - Prescribed Cefazolin Iv for abscess with coverage to MSSA and strept, Will consider broader coverage if MRSA nasal nares positive and patient condition is not improving. - ordered cbc, bmp AM. - Ordered Mrsa nasal swab, wound culture and blood culture. - Flu test negative. - CXR findings normal. - Was given ceftriaxone, daptomycin and metronidazole in ED. - Continue Cephalexin 500mg TID for 9 days more for the total course of 10 days. Scheduled a outpatient F/u with her PCP for tomorrow because MRSA nares swab came positive and will evaluate if she needs the MRSA coverage or not based on if abscess is getting better or not. DM type 2: - DM2 with home insulin Glargine 70 and semaglutide. - Insulin glargine- 25 BID - Correction factor- 20 - Carbs ratio- 7 Hypertension: - Blood pressure today 106/75 mmHg. Continue lisinopril 10 mg daily and Aldactone 100 mg daily. Hyperlipidemia: - Continue simvastatin 20 mg daily use. DVT prophylaxis: Lovenox 40mg . Total Time Total Time Spent Total Time Spent (In Minutes): <30 Discharge Plan Discharge Items Patient Disposition: Home - Self-Care Reason For Visit: AXILLARY ABSCESS Discharge Diagnosis: SSTI Condition on Discharge: Good Activity: Resume your previous activity Non-emergency contact: Primary Care Provider Call non-emergency contact if: you have any medication questions, your symptoms worsen and you have a fever Follow-up/Referrals: Rupa Bob CRNP [Primary Care Provider] - 08/03/25 2:00 pm Diet: Carb Consistent or DM2 Addtl Attending Provider Instructions: You were admitted to the hospital due to a superficial soft tissue infection, possibly complicated by residual abscess. You were started on antibiotics to treat this infection. As discussed, because of medications on your allergy list, it is possible that what we are sending you home on may not adequately treat this infection. It is very important that you follow up with your primary care provider tomorrow 08/03 (appointment scheduled for 2PM with Rupa Bob) and remain in close contact until this infection resolves. Additionally, please return to the hospital if infection worsens or if you develop recurrent fevers/chills. New medications: It is very important that you picker tender your prescription immediately after leaving the hospital to avoid missing doses. Cephalexin (Keflex): Please take 1 tablet three times daily for 10 days, first dose in the evening on 08/02. Pending Studies at Discharge: No Stand-Alone Forms: My [facility], Smoking Cessation Medications and DC Order Prescriptions: New cephalexin 500 mg capsule 500 mg PO Q8H 10 Days Qty: 30 0RF Continued (DME) syringe with needle [BD SafetyGlide Syringe] 3 mL 22 x 1 1/2" syringe See Rx Instructions .Route Qty: 4 5RF Rx Instructions: As directed (DME) FreeStyle Gogo 2 Sensor Kit See Rx Instructions .Route Qty: 1 0RF Rx Instructions: As directed change every 14 days (DME) OneTouch Ultra Test Strip See Rx Instructions .Route Qty: 300 1RF Rx Instructions: Test blood sugars three times a day (DME) lancets [OneTouch Delica Plus Lancet] 30 gauge misc See Rx Instructions .ROUTE .MEDSUPPLY Qty: 300 1RF Rx Instructions: Use to test 3 times daily (DME) pen needle, diabetic [1st Tier Unifine Pentips] 31 gauge x 1/4" needle See Rx Instructions .ROUTE .MEDSUPPLY Qty: 400 3RF Rx Instructions: inject up to 4x a day with a new pen needle simvastatin 20 mg tablet 20 mg PO QAM Qty: 90 3RF famotidine 20 mg tablet 20 mg PO BID Qty: 180 3RF semaglutide 2 mg/dose (8 mg/3 mL) pen injector 2 mg subcut WK 90 Days Qty: 9 3RF Rx Instructions: Wednesdays lisinopril 10 mg tablet 10 mg PO QAM Qty: 90 3RF cetirizine 10 mg tablet 10 mg PO QAM Qty: 90 3RF Aimovig Autoinjector 140 mg/mL auto-injector 140 mg subcut MONTHLY Qty: 1 5RF gabapentin 100 mg capsule 100 - 200 mg PO BID PRN (Reason: leg pain) Qty: 60 11RF Rx Instructions: Take 1-2 capsules orally twice a day PRN; (DME) blood-glucose meter [OneTouch Ultra2 Meter] Kit See Rx Instructions .ROUTE .MEDSUPPLY Rx Instructions: Test blood sugar three times daily Caplyta 42 mg capsule 42 mg PO HS medroxyprogesterone [Provera] 2.5 mg tablet 2.5 mg PO QAM Qty: 90 4RF Rx Instructions: Take 1 tablet by mouth once daily acetazolamide 250 mg tablet 750 mg PO BID Qty: 60 10RF cyclobenzaprine 5 mg tablet 5 mg PO TID PRN (Reason: muscle spasm) Qty: 30 1RF eletriptan 40 mg tablet See Rx Instructions PO .COMPLEX PRN (Reason: migraine headache) 30 Days Qty: 9 2RF Rx Instructions: take 1 tab at onset of headache; if no relief, may repeat 1 tab after at least 2 hrs; max = 2 tabs/24 hrs orally PRN; magnesium oxide 400 mg magnesium Tablet 400 mg PO QAM bupropion HCl 300 mg tablet extended release 24 hr 300 mg PO QAM fluconazole 150 mg tablet 150 mg PO WK Rx Instructions: Tuesdays spironolactone 50 mg tablet 50 mg PO QAM cholecalciferol (vitamin D3) 1,250 mcg (50,000 unit) capsule 50,000 unit PO DIRECTED Rx Instructions: 50,000 units orally; twice a month insulin glargine [Basaglar KwikPen U-100 Insulin] 100 unit/mL (3 mL) insulin pen 70 unit subcut QPM Discharge Orders: Discharge Order (Routine); Ordered 08/02/25 Ordered By: Ayad Allen/Other Patient Handouts: Abscess Drainage Admission Data Admit Date/Time: 08/01/25 17:27 Attending Provider: Oren Qureshi Admit Provider: Bonita Mcgarry Primary Care Provider: Rupa Bob Other Providers: Oren Qureshi Other Interventions: Discharge Summary Assessment (RN) Last Done: 08/02/25 13:31 Supervising Physician Co-Signing Physician Notes I personally examined the patient and verified all ma points of history and exam, discussed case, and agree with decision making with Dr Mcgarry feeling better overall. No fevers. Slight chills this morning. Area under her armpit feels much better and is minimally tender at worst. Would very much like to go home. Vitals noted, in general she is awake and alert no distress. HEENT normocephalic atraumatic mucous membranes moist. Breathing unlabored no accessory muscle use good effort. Skinthere is a stab wound in her right axillamore on her flank than truly in the armpitwith no purulence, No erythema at allarea of deep firmness is a little less than yesterdayfeels more like it is just inflamed and swollen than fluctuantand really is nontender even to fairly firm palpation in a reassuring way. Skin abscesssepsis present on admission (SIRS being her heart rate respiratory rate and presumed fever at home)given that she is not severe sepsis or septic shock, covered for MSSA (given that is a skin and soft tissue infection most likely staph or strep, given his purulent most likely staph) she did definitely get betterbut complicating exactly what got her better with the fact that she got a dose of daptomycin in the ER yesterday. Discussed openly and frankly with her that it is really hard to tell if she is getting better because she is getting better, or if she is getting better because the daptomycin improved things but that she would require ongoing MRSA treatment. We talked about simply covering p.o. for MRSAbut given that linezolid is not an option due to her Lexapro, and given that she would like to go home today (precluding my ability to realistically challenge her allergy to doxycycline or Bactrim) we will have her go home on MSSA treatment with close outpatient follow-up (messaged her PCP who will follow-up with her tomorrow afternoon). Again, given the lack of severe sepsis or septic shock makes me very suspicious that this is more likely to be MSSA type bacteria not MRSA, but I do not have a great way to prove 1 where the other other than following a line of treatment. She agrees with thisand is comfortable with the "open-ended" situation of going home. If she worsens, then we really probably are committed to needing to treat with MRSA (worsening really being if she has recurrence of sepsis/cellulitis); if she is simply not getting betterthen I would wonder if that area of fullness does have a little bit of loculations that may need further drainage. Resident Activity Tracking Resident Involvement: Resident Care Provided Care Provided: Adult Hospital Medicine
--- NOTE | 2025-08-02 17:51 | Billing Data ---
Date of Service August 02, 2025 Coding Level of Care Code 21550 IN/OBS DISCH 30 MIN/LESS
== END 2025-08-02 14:07 | disposition home or self-care (01) | DRG 603 ==
LOC: ED 12:29 → EDINP 17:27 → 3N 19:38